=== PATIENT | female | born 1945 ===

== ENCOUNTER 2024-12-12 11:36 | Outpatient (AMB) | payer MEDICARE, SELFPAY ==
--- OUTSIDE RECORDS SUMMARY | 2009-04-04 01:00 | XMS_ITS | Encounter Summary ---
Author Organization [facility] Address [address] [place] [phone] Phone Care Team Providers Care Long Distance Billing Operator Name Role Phone Unavailable Primary Care Provider Unavailabl e Reason for Visit * MRI/CAT Scan - Closed Specialty Diagnoses / Procedures Referred By Contac t Referred To Contact Procedures MRI Spine (Bone) Outside (No Interpretation) System, Provider Not In, [facility] [address] [address] Referral ID Status Reason Start Date Expiration Date Visits Re quested Visits Authorized [id number] Closed 04/18/2017 04/18/2018 1 1 Encounter Details Date Type Department Care Team (Late st Contact Info) Description 04/04/2009 Hospital Encounter [facility],Outside Imaging [address] [place] [address] System, Provider Not In, [facility] [address] [address] Social History Tobacco Use Types Packs/Day Years [...] PM EDT documented as of this encounter Functional Status * Calculated C-SSRS Risk Score (Lifetime/Recent) Answer Date of Assessment Author No Risk Indicated 11/30/2024 3:47 PM EDT Marce Hall RN * [place] Suicide Severity Rating Scale (Screener/Recent Self-Report) Question Answer Date of Assessment Author 1. Wish to be (Past 1 Month) No 11/30/2024 3:47 PM EDT Marce Hall RN 2. Non-Specific Active Suicidal Thoughts (Past 1 Month) No 11/30/2024 3:47 PM EDT Marce Hall RN 6. Suicidal Behavior (Lifetime) No 11/30/2024 3:47 PM EDT Marce Hall RN documented as of this encounter Plan of Treatment Upcoming Encounters Date Type Department Care Team (Late st Contact Info) Description 12/26/2024 1:00 PM EDT Ancillary Procedure [facility] [address] [place] [address] 3rd Floor, [address] [place], [place] [phone] Yasmin Montague DNP [address] [facility], [address] [address] 01/21/2025 4:00 PM EST Office Visit [facility] Rheumatology [address] [place] [address] Jaylin Miller MD [address] [facility], [address] [place] [address] [email or web address] 03/29/2025 12:00 PM EST Office Visit [facility] Neurology [address] [place] [address] Tom Fernandez MD [address] [facility], 2nd [place] [address] 04/12/2025 6:00 PM EST Appointment [facility], Bone Density - [facility] [address] [place] [address] Lucia Fairchild MD [address] [facility], [address] [place] [address] 05/15/2025 2:20 PM EST Ancillary Procedure [facility] 22 [facility] 3rd Floor, [address] [place] [address] Amrit Jeffries MD [address] [place] [address] documented as of this encounter Procedures Procedure [...] It is not the complete legal health record.[facility]
--- OUTSIDE RECORDS SUMMARY | 2024-12-10 12:11 | XMS_ITS | Encounter Summary ---
Author Organization [facility] Address [address] [place] [phone] Phone Care Team Providers Care Mlt Name Role Phone Dawna Dominique MD Primary Care Provider Encounter Details Date Type Department Care Team (Latest Contact Info) Description 12/10/2024 12:11 PM EDT - 12/10/2024 11:59 PM EDT Hospital Encounter [facility] [address] [place] [address] Kit Mcknight MD [address] [place] [address], [place] [address] [email or web address] Discharge Disposition: Home or Self Care Social History Tobacco Use Types Packs/Day Years Used Date Smoking Tobacco: Former Cigarettes 1 26 1 962 - 1987 Smokeless Tobacco: Never Alcohol Use Standard Drinks/Week [...] 12/05/2024 Are you denied basic needs s [facility] as food, clothing, or medical care? No [...] PM EDT documented as of this encounter Medications at Time of Discharge allopurinol (ZYLOPRIM) 300 MG tabletIndications:H yperuricemia Take 1.5 tab daily 135 tablet 3 5 amitriptyline (ELAVIL) 10 MG tabletIndications:F ibromyalgia Take 2 tablets (20 mg total) by mouth nightly at bedtime as needed (Fibromyalgia). 180 tablet 1 5 BETA CAROTENE ORAL Take by mouth. biotin 300 mcg Tab Take 300 mcg by mouth daily. cholecalciferol, vitamin D3, 25 mcg (1,000 unit) capsule Take 1,000 Units by mouth daily. chromium picolinate 1,000 mcg Tab Take 200 mcg by mouth daily. coenzyme Q10 100 mg capsule Take 100 mg by mouth daily. colchicine (COLCRYS) 0.6 mg tablet Take 0.6 mg by mouth daily. cyanocobalamin, vitamin B-12, 1000 MCG tablet Take 1,000 mcg by mouth daily. cyclobenzaprine (FLEXERIL) 5 MG tabletIndications:C ervical radiculopathy TAKE ONE TABLET BY MOUTH EVERY DAY AT BEDTIME 90 tablet 1 5 ezetimibe (ZETIA) 10 mg tablet Take 10 mg by mouth daily. fluocinonide 0.05 % external solution APPLY ONCE DAILY TO SCALP AND BEHIND EARS FOR 2-3 WEEKS THEN TAPER TO LOWEST EFFECTIVE DOSE 3 folic acid (FOLVITE) 1 MG tablet Take 1 mg by mouth daily. FREESTYLE LITE METER meter kit USE DIRECTED TO TEST BLOOD SUGAR TWO TIMES A DAY 3 FREESTYLE LITE Strp strips USE TWO TIMES A DAY DIRECTED 3 gabapentin (NEURONTIN) 100 MG capsuleIndications: Essential tremor Take 1 capsule (100 mg total) by mouth 3 (three) times a day. 90 capsule 11 5 Lactobac 40-Bifido 3-S.thermop 100 billion cell Cap Take 1 capsule by mouth daily. lidocaine 5 %Indications:Diabet ic polyneuropathy associated with type [address] 1 patch onto the skin every 12 (twelve) hours as needed (Diabetic polyneuropathy associated with type 2 diabetes mellitus). 90 patch 3 5 lisinopril (PRINIVIL,ZESTRIL) 10 MG tablet Take 1 tablet by mouth daily. 9 metFORMIN (GLUCOPHAGE-XR) 500 MG 24 hr tablet Take 1,500 mg by mouth nightly at bedtime. 4 metoprolol succinate (TOPROL-XL) 50 MG 24 hr tabletIndications:P ersistent atrial fibrillation Take 1 tablet (50 mg total) by mouth daily. 90 tablet 3 5 NOVOFINE 32 32 gauge x 1/4 Ndle USE TO INJECT INSULIN FOUR TIMES A DAY 3 omega 4-cum-isb-fish oil 1,000 mg (120 mg-180 mg) Cap Take 1 capsule by mouth daily. omeprazole (PRILOSEC) 20 MG capsule Take 40 mg by mouth daily. oxyCODONE 5 MG immediate release tablet Take 5 mg by mouth 3 (three) times a day as needed. OZEMPIC 2 mg/dose (8 mg/3 mL) subcutaneous injection pen INJECT 2MGS SUBCUTANEOUSLY INTO SKIN ONCE A WEEK 5 psyllium (METAMUCIL) Powd Take by mouth. pyridoxine, vitamin B6, (B-6) 25 MG tablet Take 25 mg by mouth daily. rivaroxaban (XARELTO) 20 mg Tab Take 1 tablet (20 mg total) by mouth daily with dinner. 30 tablet 4 5 TURMERIC ORALIndications:wit h curcumin Take by mouth. Indications: with curcumin documented as of this encounter Plan of Treatment Upcoming Encounters Date Type Department Care Team (Late st Contact Info) Description 12/26/2024 1:00 PM EDT Ancillary Procedure [facility] [address] 3[address] Floor, [address] [place] [address] Yasmin Montague DNP 22 [facility], [address] [place] [address] 01/21/2025 4:00 PM EST Office Visit [facility] Rheumatology [address] [place] [address] Jaylin Miller MD [address] [place] [address], [address] [place] [address] [email or web address] 03/29/2025 12:00 PM EST Office Visit [facility] Neurology [address] [place] [address] Tom Fernandez MD 22 [facility], 2nd [place] [address] 04/12/2025 6:00 PM EST Appointment [facility], Bone [facility] [address] [place] [address] Lucia Fairchild MD [address] [place] [address], [address] [place] [address] 05/15/2025 2:20 PM EST Ancillary Procedure [facility] [address], [address] [place] [address] Amrit Jeffries MD [address] [place] [address] documented as of this encounter Procedures Procedure Name Priority Date/Time Associated Diagnosis Comments URINE CULTURE Routine 12/10/2024 12:13 PM EDT Personal history of urinary infection URINALYSIS WITH SEDIMENT Routine 12/10/2024 12:13 PM EDT Personal history of urinary infection documented in this encounter Results * (ABNORMAL) Urine Culture (12/10/2024 12:13 PM EDT) Special Requests None 12/10/2024 12:13 PM EDT [facility] Urine Culture >100,000 colony forming units per mL ESCHERICHIA COLI(A) 12/11/2024 1:10 PM EDT [facility] Urine (Urine) 12/10/2024 12: 13 PM EDT 12/10/2024 12:14 PM EDT Narrative Organism Antibiotic Method Susceptibility Escherichia coli Ampicillin REBECA METHOD 4: Susceptible Escherichia coli Ampicillin + Sulbactam REBECA METHOD <=2: Susceptible Escherichia coli Cefepime REBECA METHOD <=0.12: Susceptible Escherichia coli Ceftazidime REBECA METHOD <=0.5: Susceptible Escherichia coli Ceftriaxone REBECA METHOD <=0.25: Susceptible Escherichia coli Ciprofloxacin REBECA METHOD <=0.06: Susceptible Escherichia coli Extended Spectrum B-lactamase REBECA MET HOD Negative Escherichia coli Gentamicin REBECA METHOD <=1: Susceptible Escherichia coli Levofloxacin REBECA METHOD <=0.12: Susceptible Escherichia coli Nitrofurantoin REBECA METHOD <=16: Susceptible Escherichia coli Piperacillin-tazobactam REBECA METHOD <=4: Susceptible Escherichia coli Trimethoprim/sulfamethoxazole REBECA MET HOD <=20: Susceptible Escherichia coli Cefazolin(urine) REBECA METHOD <=1: Susceptible Comment: us Kit Mcknight MD MICROBIOLOGY - GENERAL ORDERABL ES Final Result [facility] [address] [place], [place] [id number] * (ABNORMAL) URINALYSIS WITH SEDIMENT (12/10/2024 12:13 PM EDT) WBC 21-49(A) NONE SEEN /hpf [facility] RBC 0-2(A) NONE SEEN /hpf [facility] URINE EPITHELIAL 5-10(A) NONE SEEN [facility] MUCUS Trace(A) NONE SEEN /hpf [facility] BACTERIA 3+(A) NONE SEEN /hpf [facility] COLOR Yellow Yellow [facility] CLARITY Clear [facility] GLUCOSE Negative Negative [facility] BILI Negative Negative [facility] KETONES Negative Negative [facility] SPECIFIC GRAVITY 1.025 1.005 - 1.030 [facility] BLOOD Negative Negative [facility] PH 6.0 5.0 - 8.0 [facility] Protein-UA Negative Negative [facility] NITRITE Positive(A) Negative [facility] Leukocyte esterase, ur 1+(A) Negative [facility] Urine (Urine) 12/10/2024 12: 13 PM EDT 12/10/2024 12:14 PM EDT us Kit Mcknight MD URINE ORDERABLES Final Result Performing Organization Address City/State/[facility] Co de Phone Number [facility] [address] [place] [address] documented in this encounter Visit Diagnoses Diagnosis Personal history of urinary infection documented in this encounter Care Teams Mlt Relationship Specialty Start Date End Date Dawna Dominique MD [address] [place] [phone] PCP - General Family Medicine 03/16/17 documented as of this encounter Additional Source Comments The information contained in this document represents components of the legal health record. It is not the complete legal health record.[facility]
--- NOTE | 2024-12-12 11:48 | HO.NEPHOV_ITS ---
Vital Signs 12/12/24 11:55 Height 5 ft 2 in Weight 219 lb 6 oz BMI 40.1 BP 130/70 Blood Pressure Location Rt brachial Position Sitting Pulse 91 Pulse Source Pulse Oximeter Pulse Oximetry (%) 96 Oxygen Delivery Method Room Air Intake Visit Reasons: ENP: Abnormal results of Kidney function Contract Serviceman Required: No Accompanied by: Spouse Allergies Sulfa (Sulfonamide Antibiotics) Allergy (Verified 12/12/24 11:54) Unknown HPI Comments Details: I had the privilege of seeing Fernanda in consultation for drop in GFR. She has DM and is closely followed up by her PCP and acid strength inspector. She has improvement in HbA1c. She has been having B/L flank pain without edema, hematur ia, fever, nausea or vomiting. Her baseline serum creatinine has been 0.5 which has gone up to 0.7. She denies SOB, PND, orthopnea or edema. She is on Ozempic. She denies taking diuretics, excess NSAID's but is on ACEI. [facility] Medical History (Updated 12/12/24 @ 12:15 by Matteo Ochoa MD) Elevated creatine kinase level Voice tremor Gastro-esophageal reflux disease without esophagitis Vasomotor rhinitis Headache Obstructive sleep apnea syndrome Simple obesity Nasal congestion Laryngopharyngeal reflux Edema of larynx Disorder of larynx Allergic rhinitis Chronic rhinitis Surgical History (Updated 12/12/24 @ 11:52 by Donna Metzger MA) History of hysterectomy History of bladder suspension procedure S/P tonsillectomy and adenoidectomy Hx of cholecystectomy History of lumpectomy Social History (Updated 12/12/24 @ 11:50 by Donna Metzger MA) Alcohol intake: never Patient Tobacco Use Status: Former Tobacco user Review of Systems Const All systems reviewed & are unremarkable except as noted in HPI and below Physical Exam Vital Signs: Last Vital Signs Pulse 91 12/12/24 11:55 BP 130/70 12/12/24 11:55 Pulse Ox 96 12/12/24 11:55 Oxygen Delivery Method Room Air 12/12/24 11:55 BMI result Body Mass Index 40.1 Const General: comfortable and no acute distress Orientation/consciousness: patient oriented x3 HEENT Head: Yes normocephalic Mouth: Normal oral and palatal mucosa present Eyes EOM: EOMs intact bilaterally Neck Neck: Yes supple Resp Auscultation: clear to auscultation bilaterally Cardio Jugular venous distension: no JVD Rate: regular rate GI Palpation (GI): Soft to palpation Auscultation: normal bowel sounds General: Yes no CVA tenderness Back/Spine/Pelvis Back: no CVA tenderness Skin General skin exam: no rashes or lesions noted Neuro General: patient oriented x3 and moves all extremities Extrem General: Yes no pedal edema Assessment & Plan Assessment & Plan (1) Decreased GFR: Code(s): R94.4 - Abnormal results of kidney function studies Category: Medical (2) Flank pain: Code(s): R10.9 - Unspecified abdominal pain Category: Medical Plan She is found to have mild rise in serum creatinine from 0.5 to 0.7 . She is diabetic and is on medications including Ozempic. She is taking ACEI. She should maintain good hydration and avoid NSAID's. I ordered repeat blood work and renal USS. If she has drop in GFR, I shall W/U more in detail. I did not make any medication changes today. Answered all questions and F/U was given. Orders: Orders Creatinine 3 Months R94.4 - Abnormal results of kidney function studies Electrolytes 3 Months R94.4 - Abnormal results of kidney function studies US renal BI 1 Week R10.9 - Unspecified abdominal pain, R94.4 - Abnormal results of kidney function studies UA and rflx microscopic 3 Months R94.4 - Abnormal results of kidney function studies Protein Creatinine Ratio, Ur 3 Months R94.4 - Abnormal results of kidney function studies Blood Urea Nitrogen 3 Months R94.4 - Abnormal results of kidney function studies Coding Level of Care Code New Pt Level 4 (64463) Diagnoses Decreased GFR R94.4 Flank pain R10.9
[2024-12-12 11:55] VITALS: BP 130/70; PULSE 91; O2SAT 96; BMI 40.1
--- OUTSIDE RECORDS SUMMARY | 2024-12-12 14:41 | XMS_ITS | Encounter Summary ---
Author Organization [facility] Address [address] [place] [address] Phone Care Team Providers Care Sorority Supervisor Name Role Phone Dawna Dominique MD Primary Care Provider Encounter Details Date Type Department Care Team (Latest Contact Info) Description 09/16/2022 Transcribe Orders Virtual Department [address] [place] [address] Carmen Pearson PA-C [address], [address] [place] [address] [email or web address] Elevated LFTs (Primary Dx); RUQ pain Social History Tobacco Use Types Packs/Day Years Used Date Smoking Tobacco: Former Smokeless Tobacco: Never Alcohol Use Standard Drinks/Week [...] with a working camera? Not on file Comments Unknown Sex and Gender Information Value Date Recorded Sex Assigned at Female 06/06/2020 5:50 PM EDT Legal Sex Female 6:56 PM EST Gender Identity Female 06/06/2020 5:50 PM EDT Sexual Orientation Straight 06/06/2020 5: 50 PM EDT documented as of this encounter Plan of Treatment Upcoming Encounters Date Type Department Care Team (Late st Contact Info) Description 12/26/2024 1:00 PM EDT Ancillary Procedure [facility] [address] 3rd [facility], [address] [place] [address] Yasmin Montague DNP 22 [facility], [address] [place] [address] 01/21/2025 4:00 PM EST Office Visit [facility] Rheumatology [address] [place] [address] Jaylin Miller MD [address] [place] [address], [address] [place] [address] [email or web address] 03/29/2025 12:00 PM EST Office Visit [facility] Neurology [address] [place] [address] Tom Fernandez MD [address] [facility], 2nd [place] [address] 04/12/2025 6:00 PM EST Appointment [facility], Bone Density - [facility] [address] [place] [address] Lucia Fairchild MD [address] [place] [address], [address] [place] [address] 05/15/2025 2:20 PM EST Ancillary Procedure [facility] 22 [facility] 3rd [facility], [address] [place] [address] Amrit Jeffries MD [address] [place] [address] [email or web address] documented as of this encounter Results * US ABDOMEN LIMITED RIGHT UPPER QUADRANT (10/07/2022 10:02 AM EDT) Anatomical Region Laterality Modality Abdomen Ultrasound 10/07/2022 8:18 PM EDT Impressions 10/07/2022 9:46 PM EDT The median shear wave speed is 1.06 m/s. This is less than or equal to 1.3 m/s, which corresponds with a high probability of being normal. Fatty liver. [employer] [facility] [employer]: In the setting of elevated liver function tests, nonfasting, vascular congestion, etc., the stage of liver fibrosis may be overestimated. In some patients with NAFLD, the cut-off values for compensated advanced chronic liver disease may be lower. In causes other than viral hepatitis and NAFLD, the cut-off values are not well established. Narrative 10/07/2022 9:46 PM EDT US ABDOMEN LIMITED RIGHT UPPER QUADRANT TECHNIQUE: Focused ultrasound evaluation of the liver. Volumetric sweeps were obtained and reviewed. FINDINGS: LIVER: Benign cysts measuring up to 15 mm. No suspicious focal lesions. ELASTOGRAPHY: 10 valid measurements were obtained. Median shear wave speed is: 1.06 m/s. IQR to median ratio: 12%. Gallbladder: No gallstones or gallbladder wall thickening. Biliary: No intrahepatic biliary ductal dilatation. The common bile duct measures 8 mm. Procedure Note William Winslow MD - 10/07/2022 US ABDOMEN LIMITED RIGHT UPPER QUADRANT TECHNIQUE: Focused ultrasound evaluation of the liver. Volumetric sweeps wereobtained and reviewed. FINDINGS: LIVER: Benign cysts measuring up to 15 mm. No suspicious focal lesions. ELASTOGRAPHY: 10 valid measurements were obtained. Median shear wavespeed is: 1.06 m/s. IQR to median ratio: 12%. Gallbladder: No gallstones or gallbladder wall thickening. Biliary: No intrahepatic biliary ductal dilatation. The common bile duct measures 8 mm. IMPRESSION: The median shear wave speed is 1.06 m/s. This is less than or equal to1.3 m/s, which corresponds with a high probability of being normal. Fatty liver. [employer] OF [employer]IOLOGISTS IN ULTRASOUND CONSENSUS: In the setting of elevated liver function tests, nonfasting, vascularcongestion, etc., the stage of liver fibrosis may be overestimated. Insome patients with NAFLD, the cut-off values for compensated advancedchronic liver disease may be lower. In causes other than viral hepatitisand NAFLD, the cut-off values are not well established. us Carmen Pearson PA-C IMG US ABDOMEN Final Result documented in this encounter Visit Diagnoses Diagnosis Elevated LFTs- Primary Other abnormal blood chemistry RUQ pain Abdominal pain, right upper quadrant Elevated LFTs Other abnormal blood chemistry RUQ pain Abdominal pain, right upper quadrant documented in this encounter Care Teams Sorority Supervisor Relationship Specialty Start Date End Date Dawna Dominique MD [address] [place] [address] PCP - General Family Medicine 03/16/17 documented as of this encounter Additional Source Comments The information contained in this document represents components of the legal health record. It is not the complete legal health record.[facility]
--- OUTSIDE RECORDS SUMMARY | 2024-12-12 14:41 | XMS_ITS | Encounter Summary ---
Author Organization [facility] Address [facility] [employer] [facility] [address] [place] [address] Phone Care Team Providers Care Biodiesel Plant Operations Engineer Name Role Phone Dawna Dominique MD Primary Care Provider Reason for Referral * MRI/CAT Scan - Closed Specialty Diagnoses / Procedures Referred By Catie arteaga Referred To Contact Radiology Diagnoses Abdominal pain, unspecified abdominal location Procedures CT Abdomen/Pelvis Dawna Dominique MD [address] [place] [address] Phone: tel: fax: Referral ID Status Reason Start Date Expiration Date Visits Re quested Visits Authorized [id number] Closed 07/02/2022 1 1 Encounter Details Date Type Department Care Team (Latest Contact Info) Description 07/02/2022 Transcribe Orders Virtual Department 30 [place] [address] Dawna Dominique MD [address] [place] [address] Abdominal pain, unspecified abdominal location (Primary Dx) Social History Tobacco Use Types Packs/Day Years Used Date Smoking Tobacco: Former Smokeless Tobacco: Never Alcohol Use Standard Drinks/Week Comments No 0 (1 standard drink = 0.6 oz pur e alcohol) Comments Unknown Sex and Gender Information Value [...] Description 12/26/2024 1:00 PM EDT Ancillary Procedure [facility] 22 [facility] 3rd Floor, [address] [place] [address] Yasmin Montague DNP 22 [facility], [address] [place] [address] 01/21/2025 4:00 PM EST Office Visit [facility] Rheumatology 22 [place] [address] Jaylin Miller MD 22 [facility], [address] [place] [address] [email or web address] 03/29/2025 12:00 PM EST Office Visit [facility] Neurology 22 [place] [address] Tom Fernandez MD [address] [place] [address], 2nd [place] [address] 04/12/2025 6:00 PM EST Appointment [facility], Bone Density - [facility] 30 [place] [address] Lucia Fairchild MD [address] [place] [address] [address] [place] [address] 05/15/2025 2:20 PM EST Ancillary Procedure [facility] [address] [place] [address] 3rd Floor, [address] [place] [address] Amrit Jeffries MD [address] [place] [address] documented as of this encounter Results * CT ABDOMEN/PELVIS WITH CONTRAST (07/22/2022 2:20 PM EDT) Anatomical Region Laterality Modality Abdomen, Pelvis Computed Tomogra phy 07/22/2022 10:2 5 PM EDT Impressions 07/23/2022 8:54 AM EDT No acute abnormality. Incidental findings as above. Nonspecific pleural thickening along the right lung base RECOMMENDATIONS: Chest CT Narrative 07/23/2022 8:[address] ABDOMEN/PELVIS WITH CONTRAST TECHNIQUE: Multidetector-row CT of the abdomen and pelvis was performed after administration of intravenous contrast using tailored dose modulation techniques. Images were reconstructed in the axial, coronal, and sagittal planes. COMPARISON: None FINDINGS: Lower Chest: Nonspecific pleural thickening along the right lung base (3:16) Liver: 1.2 cm cyst in the inferior aspect of the right liver. Biliary: Status post cholecystectomy. No biliary ductal dilatation. Spleen: Normal. No splenomegaly or focal lesions. Pancreas: Normal. No masses or ductal dilatation. Adrenal Glands: Normal. No nodules. Kidneys/Ureters: Bilateral renal cysts. No solid masses, stones, or hydronephrosis. Bowel: Appendix nonvisualized. No distention or wall thickening. Peritoneum/Retroperitoneum: No masses, pneumoperitoneum, or fluid. Lymph Nodes: Nonspecific bilateral prominent inguinal lymph nodes not meeting criteria for lymphadenopathy. Pelvic Organs/Bladder: Postsurgical changes surrounding the bladder. Vessels: Aorta vascular calcifications. No abdominal aortic aneurysm. Bones/Soft Tissues: No destructive osseous lesions. Procedure Note Bo Rashid MD, ABRAN - 07/23/2022 CT ABDOMEN/PELVIS WITH CONTRAST TECHNIQUE: Multidetector-row CT of the abdomen and pelvis was performedafter administration of intravenous contrast using tailored dosemodulation techniques. Images were reconstructed in the axial, coronal,and sagittal planes. COMPARISON: None FINDINGS: Lower Chest: Nonspecific pleural thickening along the right lung base (3:16) Liver: 1.2 cm cyst in the inferior aspect of the right liver. Biliary: Status post cholecystectomy. No biliary ductal dilatation. Spleen: Normal. No splenomegaly or focal lesions. Pancreas: Normal. No masses or ductal dilatation. Adrenal Glands: Normal. No nodules. Kidneys/Ureters: Bilateral renal cysts. No solid masses, stones, orhydronephrosis. Bowel: Appendix nonvisualized. No distention or wall thickening. Peritoneum/Retroperitoneum: No masses, pneumoperitoneum, or fluid. Lymph Nodes: Nonspecific bilateral prominent inguinal lymph nodes notmeeting criteria for lymphadenopathy. Pelvic Organs/Bladder: Postsurgical changes surrounding the bladder. Vessels: Aorta vascular calcifications. No abdominal aortic aneurysm. Bones/Soft Tissues: No destructive osseous lesions. IMPRESSION: No acute abnormality. Incidental findings as above. Nonspecific pleural thickening along the right lung base RECOMMENDATIONS: Chest CT Dawna Dominique MD IMG CT ABD/PELVIS Final Result documented in this encounter Visit Diagnoses Diagnosis Abdominal pain, unspecified abdominal location- Primary Abdominal pain, unspecified abdominal location documented in this encounter Care Teams Biodiesel Plant Operations Engineer Relationship Specialty Start Date End Date Dawna Dominiuqe MD [address] [place] [address] PCP - General Family Medicine 03/16/17 documented as of this encounter Additional Source Comments The information contained in this document represents components of the legal health record. It is not the complete legal health record.[facility]
--- OUTSIDE RECORDS SUMMARY | 2024-12-12 14:41 | XMS_ITS | Encounter Summary ---
Author Organization [facility] Address [address] [place] [address] Phone Care Team Providers Care Java J2Ee Lead Name Role Phone Dawna Dominqiue MD Primary Care Provider Encounter Details Date Type Department Care Team (Late st Contact Info) Description 02/09/2024 Transcribe Orders Virtual Department 30 [place] [address] Lucia Fairchild MD 33 [facility], [address] [place] [address] [email or web address] Disorder of bone (Primary Dx) Social History Tobacco Use Types [...] as food, clothing, or medical care? No 11/18/2022 In the past 12 months have y ou been in a relationship with a person who hurts, threatens, or tries to control you? No 11/18/2022 Are you denied basic needs s uch as food, clothing, or medical care? No 11/18/2022 In the past 12 months have y ou been in a relationship with a person who hurts, threatens, or tries to control you? No 11/18/2022 Comments No Sex and Gender Information Value [...] Description 12/26/2024 1:00 PM EDT Ancillary Procedure [facility] [address] [place] [address] 3rd Floor, [address] [place] [address] Yasmin Montague DNP [address] [place] [address], [address] [address] 01/21/2025 4:00 PM EST Office Visit [facility] Rheumatology [address] [place] [address] Jaylin Miller MD [address] [place] [address], [facility] [address] [place] [address] [email or web address] 03/29/2025 12:00 PM EST Office Visit [facility] Neurology [address] [place] [address] [place] [address] Tom Fernandez MD [address] [place] [address], 2nd [place] [address] 04/12/2025 6:00 PM EST Appointment [facility], Bone [facility] 30 [place] [address] Lucia Fairchild MD 33 [facility], [address] [place] [address] [email or web address] 05/15/2025 2:20 PM EST Ancillary Procedure [facility] 22 [facility] 3rd Floor, [address] [place] [address] Amrit Jeffries MD [address] [place] [address] [email or web address] Scheduled Orders Name Type Priority Associated Diagnoses Orde r Schedule DXA Screening Imaging Routine Disorder of bone Expected: 11/26/2024, Expires: 11/26/2025 documented as of this encounter Visit Diagnoses Diagnosis Disorder of bone- Primary documented in this encounter Care Teams Java J2Ee Lead Relationship Specialty Start Date End Date Dawna Dominique MD [address] [place] [address] PCP - General Family Medicine 03/16/17 documented as of this encounter Additional Source Comments The information contained in this document represents components of the legal health record. It is not the complete legal health record.[facility]
--- OUTSIDE RECORDS SUMMARY | 2024-12-12 14:41 | XMS_ITS | Encounter Summary ---
Author Organization [facility] Address [address] [place] [address] Phone Care Team Providers Care Web Site Specialist Name Role Phone Dawna Dominique MD Primary Care Provider Encounter Details Date Type Department Care Team (Late st Contact Info) Description 04/18/2017 Procedure Pass [facility],Outside Imaging [address] [place] [address] Social History Tobacco Use Types Packs/Day Years Used Date Smoking Tobacco: Former Cigarettes 1 26 1 962 - 1987 Smokeless Tobacco: Never Alcohol Use Standard Drinks/Week Comments No 0 (1 standard drink = 0.6 oz pur e alcohol) Comments No Sex and Gender Information Value [...] Description 12/26/2024 1:00 PM EDT Ancillary Procedure [facility] 22 [facility] 3rd Floor, [address] [place] [address] Yasmin Montague DNP 22 [facility], [address] [place] [address] 01/21/2025 4:00 PM EST Office Visit [facility] Rheumatology 22 [place] [address] Jaylin Miller MD 22 [facility], [address] [place] [address] [email or web address] 03/29/2025 12:00 PM EST Office Visit [facility] Neurology 22 [place] [address] Tom Fernandez MD 22 [facility], 2nd [place] [address] 04/12/2025 6:00 PM EST Appointment [facility], Bone Density - [facility] 30 [place] [address] Lucia Fairchild MD 33 [facility] [address] [place] [address] 05/15/2025 2:20 PM EST Ancillary Procedure [facility] 22 [facility] 3rd Floor, [address] [place] [address] Amrit Jeffries MD 50 [place] [address] documented as of this encounter Visit Diagnoses Not on filedocumented in this encounter Care Teams Web Site Specialist Relationship Specialty Start Date End Date Dawna Dominique MD [address] [place] [address] PCP - General Family Medicine 03/16/17 documented as of this encounter Additional Source Comments The information contained in this document represents components of the legal health record. It is not the complete legal health record.[facility]
--- OUTSIDE RECORDS SUMMARY | 2024-12-12 14:41 | XMS_ITS | Continuity of Care Document ---
Author Organization [facility] Address 33 [facility] [address] [place], [place] Phone [phone] Care Team Providers Care Academic Adviser Name Role Phone Dawna Dominique MD Care Team Information Barrel Cooper Unavailable LUCIA FAIRCHILD M.D. Care Team Information Rec eiver Unavailable Dawna Dominique MD Primary Care Physician Unavaila ble Problems Active Problems Provider Date Urine screening abnormal Lucia Fairchild M.D. Onset: 03/28/2024 Atrial fibrillation Lucia Fairchild M.D. Onse t: 03/28/2024 Abdominal pain Lucia Fairchild M.D. Onset: 0 08/19/2022 Alopecia Lucia Fairchild M.D. Onset: 1 03/27/2021 Liver function tests outside reference range Lucia Fairchild M.D. Onset: 12/29/2018 Non-toxic multinodular goiter Lucia Fairchild M.D. Onset: 09/26/2018 Disorder of bone Lucia Fairchild M.D. Onset: 09/26/2018 Uncontrolled type 2 diabetes mellitus Lucia Fairchild M.D. Onset: 09/26/2018 Social History Type Date Description Comments Sex Female Sex Unknown Allergies and adverse reactions Active Allergies Criticality Reaction Severity Comments Date Sulfamoxole Unable to assess criticality 09/26/2018 Jardiance Unable to assess criticality UTI, yeast 11/12/2021 Metformin Unable to assess criticality hand swelling 03/24/2022 Aspirin Unable to assess criticality 03/20/2024 Empagliflozin Unable to assess criticality 03/20/2024 Epinephrine Unable to assess criticality 03/20/2024 Hydrochlorothiazide Unable to assess criticality Swelling 03/20/2024 Lactose Unable to assess criticality 03/20/2024 Milnacipran Unable to assess criticality 03/20/2024 Procaine Unable to assess criticality Headaches 03/20/2024 Rosuvastatin Unable to assess criticality Headaches, Myalgia 03/20/2024 Medications Active Medications SIG Qnty Indications Order ing Provider Date Mqobpucgm75tx Tablets 1 tab by mouth rakan ry day 90tabs Lucia Fairchild M.D. 5 Ozempic (2 MG/Dose)8mg/3ML Solution Pen-Inject give 2mg subcutaneously in skin once a week 3ml Lucia Fairchild M.D. 5 Colchicine0.6mg Tablets 1 tab by mouth every day 90tabs Lucia Fairchild M.D. 4 Metformin HCL FI922lh Tablets ER 24HR Take 3 Tablets By Mouth Daily In The Evening 270tabs Lucia Fairchild M.D. 4 Fiasp Wmuaxqmid165Yvve/ML Solution Pen-Inject inject 2-10 unit subcutaneous four times a day as per ss 15ml Lucia Fairchild M.D. 4 Freestyle Samy 2/Waterflow/Flash Glucose Monitoring Mnfmnq6Mwgcet Device uad to monitor bs 4-6x a day 1units Lucia Fairchild M.D. 3 Freestyle Samy 2/Sensor/Flash Glucose Monitoring Crnzcu0Nhohfe Misc uad to monitor bs 4-6x a day 6units Lucia Fairchild M.D. 3 BD Pen Needle/Micro/Ultra-Fi ne/32G X 6mm32G X 6 mm Misc 1 four times a day 150units Zaynab Fairchild M.D. 3 Freestyle Lite TestStrips 1 strip to meter twice a day 200units Zaynab Fairchild M.D. 9 Freestyle Lite Blood Glucose Monitoring SystemDevice [facility] to test bs 2x a day 1units E11.65 Lucia Fairchild M.D. 9 Lfjdfjl23yr Tablets Take One Tablet By Mouth Every Day With Dinner Unknown 0 Sqrcctlzrk560uj Capsules Take One Capsule By Mouth Three Times A Day Tom Fernandez MD 0 Lidocaine5% Patches Place One Patch Onto The Skin Every 12 Hours as Needed Jaylin Miller MD 0 Metoprolol Succinate ER25mg Tablets ER 24HR Take One Tablet By Mouth Every Day Unknown 0 Curcumin/Tumeric Unknown 0 Metamucil FiberChewtabs 3 by mouth every day Unknown 0 Vit B6 1/d Unknown 0 Chromium Picolinate Unknown 0 Probiotics Unknown 0 Vit B12 1000 1/d Unknown 00 0 Folic Acid 400/d->qod Unknown 0 0 Biotin 5,000mcg Unknown 0 Vit D 2000iu/d Unknown 0 Cyclobenzaprine YUB74ws Tablets Take One Tablet By Mouth AT Bedtime Unknown 0 Fish Lfq1723ov Capsules 1 tab by mouth every day Unknown 0 Oxycodone HCL5mg Tablets Take 1-2 Tablets By Mouth Every 6 Hours as Needed For Pain Unknown 0 Jmlhssicbq87yl Tablets Take One Tablet By Mouth Every Day Unknown 0 Co Q 10 200 Unknown 0 0 History Medications Ozempic (1 MG/Dose)4mg/3ML Solution Pen-Inject Inject 1 MG Subcutaneously Once Weekly 9ml Lucia Fairchild M.D. 06/17/2023 - 06/13/2024 Ozempic (0.25 Or 0.5 MG/Dose)2mg/3ML Solution Pen-Inject 0.25 mg sub cutaneously every week a7earxa then 0.5/week as tolerated 3ml Lucia Fairchild M.D. 05/02/2023 - 06/17/2023 Pvxdkmj40ey/3ML Solution Pen-Inject inject 1.2 mg subcutaneous every day start @ 0.6mg 2ml E11Aleksandra Fairchild M.D. 08/19/2022 - 05/02/2023 Novolog Npbxlli392Ykfn/ML Solution Pen-Inject inject 2-10 unit subcutaneous four times a day as per ss 15ml Presley Fairchild M.D. 08/19/2022 - 04/27/2023 Trulicity0.75mg/0.5ML Solution Pen-Inject 0.75 mg subcutaneous every week 6ml Presley Fairchild M.D. 03/24/2022 - 08/19/2022 Rvlzzyxnxbl4xm Tablets Take 1 1/2 Tablets By Mouth Every Day AT Supper 180tabs Lucia Fairchild M.D. 03/24/2022 - 06/17/2023 Kukwaxq9gt Tablets 1 by mouth every day 30tabs Presley Fairchild M.D. 10/09/2020 - 11/12/2021 Pravastatin Diuqvx21xl Tablets 1 by mouth every day 90tabs Presley Fairchild M.D. 07/03/2020 - 03/24/2022 Nzerkpprh10hy Tablets 1 by mouth every day 90tabs Jamie Fairchild M.D. 07/02/2019 - 07/03/2020 Orhnefyveed8jl Tablets take 3 tablets by mouth dailyat 12noon 270tabs Lucia Fairchild M.D. 05/02/2019 - 03/24/2022 Ozempic (0.25 Or 0.5 MG/Dose)2mg/1.5ML Solution Pen-Inject 0.25 mg sub cutaneously every week a8ottaw then 0.5/week as tolerated 1.500ml Presley Fairchild M.D. 12/29/2018 - 07/02/2019 Metformin HCL NC717zx Tablets ER 24HR Take 2 Tablets By Mouth Daily In The Evening 270tabs Presley Fairchild M.D. 09/26/2018 - 03/24/2022 Metformin DNI098nm Tablets Take 2 Tablets By Mouth Twice Daily Unknown - 09/26/2018 Amitriptyline PPK67ys Tablets Take 1 Tablet By Mouth Nightly Along With Amitriptyline 25 MG Tablets Unknown - 03/24/2022 Amitriptyline JMM69bp Tablets Take Two Tablets By Mouth Twice A Day Unknown - 03/24/2022 Tmcxogrrjhk549mk Tablets Take 3 Tablet By Mouth Daily Unknown - 03/24/2022 Betamethasone Dipropionate0.05% Lotion Apply Once To Twice Daily To Affected Areas On Scalp as Needed . DO Not Use On Face Or Genitals Unknown - 03/24/2022 Alclometasone Dipropionate0.05% Cream Apply To Affected Area(S) Two Times A Day On Face And Around Ears For 1 To 2 Weeks as Needed Unknown - 03/24/2022 Beta Carotene Unknown - 03/24/2022 Vit B12/B6/Folate 1/d Unknown - 07/30/2021 Apple Cider Vinegar PlusTablets Unknown - 03/24/2022 Advocate Arm Blood Pressure Monitor/Extra LargeDevice uad 1units E11.65 Lucia Fairchild M.D. - 05/02/2023
--- OUTSIDE RECORDS SUMMARY | 2024-12-12 14:41 | XMS_ITS | Encounter Summary ---
Author Organization [facility] Address [address] [place] [address] Phone Care Team Providers Care Premium Cancellation Clerk Name Role Phone Dawna Dominique MD Primary Care Provider Encounter Details Date Type Department Care Team (Late st Contact Info) Description 12/10/2024 Transcribe Orders [facility] [address] [place] [address] Kit Mcknight MD [address] [place] [address], [address] [id number] [email or web address] Social History Tobacco Use Types Packs/Day Years [...] Description 12/26/2024 1:00 PM EDT Ancillary Procedure [facility] [address] [place] [address] 3rd Floor, [address] [place] [address] Yasmin Montague DNP [address] [place] [address], [address] [place] [address] 01/21/2025 4:00 PM EST Office Visit [facility] Rheumatology [address] [place] [address] Jaylin Miller MD [address] [place] [address], [address] [place] [address] [email or web address] 03/29/2025 12:00 PM EST Office Visit [facility] Neurology [address] [place] [address] Tom Fernandez MD [address] [place] [address], 2nd [place] [address] 04/12/2025 6:00 PM EST Appointment [facility], Bone Density - [facility] 30 [place] [address] Lucia Fairchild MD 33 [facility], [address] [place] [address] 05/15/2025 2:20 PM EST Ancillary Procedure [facility] 22 [facility] 3rd Floor, [address] [place] [address] Amrit Jeffries MD 50 [place] [address] documented as of this encounter Visit Diagnoses Not on filedocumented in this encounter Care Teams Premium Cancellation Clerk Relationship Specialty Start Date End Date Dawna Dominique MD [address] [place] [address] PCP - General Family Medicine 03/16/17 documented as of this encounter Additional Source Comments The information contained in this document represents components of the legal health record. It is not the complete legal health record.[facility]
--- OUTSIDE RECORDS SUMMARY | 2024-12-12 14:41 | XMS_ITS | Encounter Summary ---
Author Organization [facility] Address [address] [place] [address] Phone Care Team Providers Care Fare Enforcement Officer Name Role Phone Dawna Dominique MD Primary Care Provider Encounter Details Date Type Department Care Team (Late st Contact Info) Description 11/18/2022 Procedure Pass [facility] Endoscopy Admitting Dept Virtual Department 30 [place] [address] Social History Tobacco Use Types Packs/Day Years Used Date Smoking Tobacco: Former Cigarettes 1 15 04 962 - 1987 Smokeless Tobacco: Never Alcohol [...] Description 12/26/2024 1:00 PM EDT Ancillary Procedure [facility] [address] [place] [address] 3rd Floor, [address] [place] [address] Yasmin Montague DNP 22 [facility], [address] [place] [address] 01/21/2025 4:00 PM EST Office Visit [facility] Rheumatology 22 [place] [address] Jaylin Miller MD [address] [place] [address], [address] [place] [address] [email or web address] 03/29/2025 12:00 PM EST Office Visit [facility] Neurology 22 [place] [address] Tom Fernandez MD 22 [facility], 2nd [place] [address] 04/12/2025 6:00 PM EST Appointment [facility], Bone Density - [facility] 30 [place] [address] Lucia Fairchild MD 33 [facility], [address] [place] [address] 05/15/2025 2:20 PM EST Ancillary Procedure [facility] 3rd Floor, [address] [place] [address] Amrit Jeffries MD [address] [place] [address] documented as of this encounter Visit Diagnoses Not on filedocumented in this encounter Care Teams Fare Enforcement Officer Relationship Specialty Start Date End Date Dawna Dominique MD [address] [place] [address] PCP - General Family Medicine 03/16/17 documented as of this encounter Additional Source Comments The information contained in this document represents components of the legal health record. It is not the complete legal health record.[facility]
--- OUTSIDE RECORDS SUMMARY | 2024-12-12 14:41 | XMS_ITS | Encounter Summary ---
Author Organization [facility] Address [address] [place] [address] Phone Care Team Providers Care Draw Frame Operator Name Role Phone Dawna Dominique MD Primary Care Provider Encounter Details Date Type Department Care Team (Latest Contact Info) Description 12/10/2024 Transcribe Orders [facility] [address] [place] [address] Kit Mcknight MD [address] [place] [address], [address] [place], [place] [phone] [email or web address] Urinary tract infection without hematuria, site unspecified (Primary Dx); Urinary incontinence, unspecified type Social History Tobacco Use Types Packs/Day Years [...] Description 12/26/2024 1:00 PM EDT Ancillary Procedure [facility] [address] [place] [address] 3rd Floor, [address] [place] [address] Yasmin Montague DNP [address] [place] [address], [address] [place] [address] 01/21/2025 4:00 PM EST Office Visit [facility] Rheumatology [address] [place] [address] Jaylin Miller MD [address] [place] [address], [address] [place] [address] [email or web address] 03/29/2025 12:00 PM EST Office Visit [facility] Neurology [address] [place] [address] Tom eFrnandez MD [address] [place] [address], 2nd [place] [address] 04/12/2025 6:00 PM EST Appointment [facility], [address] [address] Lucia Fairchild MD 33 [facility], [address] [place] [address] [email or web address] 05/15/2025 2:20 PM EST Ancillary Procedure [facility] 3rd Floor, [address] [place] [address] Amrit Jeffries MD 50 [place] [address] [email or web address] documented as of this encounter Visit Diagnoses Diagnosis Urinary tract infection without hematuria, site unspecified- Primary Urinary incontinence, unspecified type documented in this encounter Care Teams Draw Frame Operator Relationship Specialty Start Date End Date Dawna Dominique MD [address] [place] [address] PCP - General Family Medicine 03/16/17 documented as of this encounter Additional Source Comments The information contained in this document represents components of the legal health record. It is not the complete legal health record.[facility]
--- OUTSIDE RECORDS SUMMARY | 2024-12-12 14:41 | XMS_ITS | Encounter Summary ---
Author Organization [facility] Address [address] [facility] [address] [place] [address] Phone Care Team Providers Care Horse Stud Worker Name Role Phone Dawna Dominique MD Primary Care Provider Encounter Details Date Type Department Care Team (Late Contact Info) Description 07/02/2022 Transcribe Orders [facility] Processing 30 [place] [address] Dawna Dominique MD [address] [place] [address] Social History Tobacco Use Types Packs/Day Years [...] Encounters Date Type Department Care Team (Late Contact Info) Description 12/26/2024 1:00 PM EDT Ancillary Procedure [facility] 22 [facility] 3rd Floor, [address] [place], [place] [phone] Yasmin Montague DNP 22 [facility], [address] [place] [address] 01/21/2025 4:00 PM EST Office Visit [facility] Rheumatology [address] [place] [address] Jaylin Miller MD 22 [facility], [address] [place] [address] [email or web address] 03/29/2025 12:00 PM EST Office Visit [facility] Neurology [address] [place] [address] Tom Fernandez MD 22 [facility], 2nd [place] [address] 04/12/2025 6:00 PM EST Appointment [facility], Bone [facility] 30 [place] [address] Lucia Fairchild MD 33 [facility], [address] [place] [address] 05/15/2025 2:20 PM EST Ancillary Procedure [facility] 22 [facility] 3rd Floor, [address] [place] [address] Amrit Jeffries MD [address] [place] [address] documented as of this encounter Visit Diagnoses Not on filedocumented in this encounter Care Teams Horse Stud Worker Relationship Specialty Start Date End Date Dawna Dominique MD [address] [place] [address] PCP - General Family Medicine 03/16/17 documented as of this encounter Additional Source Comments The information contained in this document represents components of the legal health record. It is not the complete legal health record.[facility]
--- OUTSIDE RECORDS SUMMARY | 2024-12-12 14:41 | XMS_ITS | Encounter Summary ---
Author Organization [facility] Address [email or web address] [place] [address] Phone Care Team Providers Care Copy Lathe Operator Name Role Phone Dawna Dominique MD Primary Care Provider Encounter Details Date Type Department Care Team (Latest Contact Info) Description 12/10/2024 Transcribe Orders [facility] [address] [place] [address] Kit Mcknight MD [address] [place] [address], [address] [place], [place] [phone] [email or web address] Personal history of urinary infection (Primary Dx) Social History Tobacco Use Types [...] Description 12/26/2024 1:00 PM EDT Ancillary Procedure [facility] [address] [place] [address] 3rd Floor, [address] [place] [address] Yasmin Montague DNP [address] [place] [address], [address] [address] 01/21/2025 4:00 PM EST Office Visit [facility] Rheumatology [address] [place] [address] Jaylin Miller MD [address] [place] [address], [address] [place] [address] [email or web address] 03/29/2025 12:00 PM EST Office Visit [facility] Neurology [address] [place] [address] [place] [address] Tom Fernandez MD [address] [place] [address], 2nd [place] [address] 04/12/2025 6:00 PM EST Appointment [facility], Bone [facility] 30 [place] [address] Lucia Fairchild MD 33 [facility], [address] [place] [address] 05/15/2025 2:20 PM EST Ancillary Procedure [facility] 3rd Floor, [address] [place] [address] Amrit Jeffries MD [address] [place] [address] documented as of this encounter Results * (ABNORMAL) Urine Culture (12/10/2024 12:13 PM EDT) Special Requests None 12/10/2024 12:13 PM EDT [facility] Urine Culture >100,000 colony forming units per mL ESCHERICHIA COLI(A) 12/11/2024 1:10 PM EDT [facility] Urine (Urine) 12/10/2024 12: 13 PM EDT [...] MICROBIOLOGY - GENERAL ORDERABL ES Final Result [facility] 30 [place] [address] * (ABNORMAL) URINALYSIS WITH SEDIMENT (12/10/2024 12:13 PM EDT) WBC 21-49(A) NONE SEEN /hpf [facility] RBC 0-2(A) NONE SEEN /hpf [facility] URINE EPITHELIAL 5-10(A) NONE SEEN [facility] MUCUS Trace(A) NONE SEEN /hpf [facility] BACTERIA 3+(A) NONE SEEN /hpf [facility] COLOR Yellow Yellow [facility] CLARITY Clear [facility] GLUCOSE Negative Negative [facility] BILI Negative Negative [facility] KETONES Negative Negative [facility] SPECIFIC GRAVITY 1.025 1.005 - 1.030 [facility] BLOOD Negative Negative [facility] PH 6.0 5.0 - 8.0 [facility] Protein-UA Negative Negative [facility] NITRITE Positive(A) Negative [facility] Leukocyte esterase, ur 1+(A) Negative [facility] Urine (Urine) 12/10/2024 12: 13 PM EDT 12/10/2024 12:14 PM EDT us Kit Mcknight MD URINE ORDERABLES Final Result Performing Organization Address City/State/[facility] Co de Phone Number [facility] 30 [place] [address] documented in this encounter Visit Diagnoses Diagnosis Personal history of urinary infection- Primary documented in this encounter Care Teams Copy Lathe Operator Relationship Specialty Start Date End Date Dawna Dominique MD [address] [place] [address] PCP - General Family Medicine 03/16/17 documented as of this encounter Additional Source Comments The information contained in this document represents components of the legal health record. It is not the complete legal health record.[facility]
--- OUTSIDE RECORDS SUMMARY | 2024-12-12 14:41 | XMS_ITS | Encounter Summary ---
Author Organization [facility] Address [address] [place] [address] Phone Care Team Providers Care Sterilization Technician Name Role Phone Dawna Dominique MD Primary Care Provider Encounter Details Date Type Department Care Team (Late st Contact Info) Description 07/02/2022 Procedure Pass [facility], Ct Scan - [address] [address] Social History Tobacco Use Types Packs/Day Years [...] Description 12/26/2024 1:00 PM EDT Ancillary Procedure [facility] 22 [facility] 3rd Floor, [address] [place] [address] Yasmin Montague DNP 22 [facility], [address] [place] [address] 01/21/2025 4:00 PM EST Office Visit [facility] Rheumatology 22 [place] [address] Jaylin Miller MD 22 [facility], [address] [place] [address] [email or web address] 03/29/2025 12:00 PM EST Office Visit [facility] Neurology 22 [place] [address] Tom Fernandez MD 22 [facility], 2nd [place] [address] 04/12/2025 6:00 PM EST Appointment [facility], Bone Density - [facility] 30 [place] [address] Lucia Fairchild MD 33 [facility], [address] [place] [address] 05/15/2025 2:20 PM EST Ancillary Procedure [facility] 22 [facility] 3rd Floor, [address] [place] [address] Amrit Jeffries MD [address] [place] [address] documented as of this encounter Visit Diagnoses Not on filedocumented in this encounter Care Teams Sterilization Technician Relationship Specialty Start Date End Date Dawna Dominique MD [address] [place] [address] PCP - General Family Medicine 03/16/17 documented as of this encounter Additional Source Comments The information contained in this document represents components of the legal health record. It is not the complete legal health record.[facility]
--- OUTSIDE RECORDS SUMMARY | 2024-12-12 14:41 | XMS_ITS | Encounter Summary ---
Author Organization [facility] Address [address] [place] [address] Phone Care Team Providers Care Furniture Assembler And Installer Name Role Phone Dawna Dominique MD Primary Care Provider Encounter Details Date Type Department Care Team (Late st Contact Info) Description 12/05/2024 Procedure Pass [facility] Endoscopy Admitting Dept Virtual Department 30 [place] [address] Social History Tobacco Use Types Packs/Day Years [...] Description 12/26/2024 1:00 PM EDT Ancillary Procedure [facility] [address] [place] [address] 3rd Floor, [address] [place] [address] Yasmin Montague DNP 22 [facility], [address] [place] [address] 01/21/2025 4:00 PM EST Office Visit [facility] Rheumatology 22 [place] [address] Jaylin Miller MD [address] [place] [address], [address] [place] [address] [email or web address] 03/29/2025 12:00 PM EST Office Visit [facility] Neurology [address] [place] [address] Tom Fernandez MD 22 [facility], 2nd [place] [address] 04/12/2025 6:00 PM EST Appointment [facility], Bone [facility] - [facility] [place] 30 [place] [address] Lucia Fairchild MD 33 [facility], [address] [place] [address] 05/15/2025 2:20 PM EST Ancillary Procedure [facility] 3rd Floor, [address] [place] [address] Amrit Jeffries MD [address] [place] [address] documented as of this encounter Visit Diagnoses Not on filedocumented in this encounter Care Teams Furniture Assembler And Installer Relationship Specialty Start Date End Date Dawna Dominique MD [address] [place] [address] PCP - General Family Medicine 03/16/17 documented as of this encounter Additional Source Comments The information contained in this document represents components of the legal health record. It is not the complete legal health record.[facility]
--- OUTSIDE RECORDS SUMMARY | 2024-12-12 14:42 | XMS_ITS | Encounter Summary ---
Author Organization [facility] Address [facility] [address] [place] [address] Phone Care Team Providers Care Manager Leadership Development Name Role Phone Dawna Dominique MD Primary Care Provider Reason for Referral * MRI/CAT Scan - Closed Specialty Diagnoses / Procedures Referred By Catie arteaga Referred To Contact Radiology Diagnoses Spinal stenosis of lumbar region, unspecified whether neurogenic claudication present Procedures MRI Lumbar Spine Adebayo Luis MD [address] [place] [phone] Phone: tel: fax: Referral ID Status Reason Start Date Expiration Date Visits Re quested Visits Authorized [id number] Closed 04/23/2024 04/23/2025 1 1 Encounter Details Date Type Department Care Team (Latest Contact Info) Description 04/23/2024 Transcribe Orders Virtual Department [address] [place] [address] Adebayo Luis MD [address] [place] [phone] Spinal stenosis of lumbar region, unspecified whether neurogenic claudication present (Primary Dx) Social History Tobacco Use Types [...] Description 12/26/2024 1:00 PM EDT Ancillary Procedure [facility] [address] [place] [address] 3rd Floor, [address] [place] [address] Yasmin Montague DNP 22 [facility], [address] [place] [address] 01/21/2025 4:00 PM EST Office Visit [facility] Rheumatology [address] [place] [address] Jaylin Miller MD 22 [facility], [address] [place] [address] [email or web address] 03/29/2025 12:00 PM EST Office Visit [facility] Neurology [address] [place] [address] Tom Fernandez MD 22 [facility], 2nd [place] [address] 04/12/2025 6:00 PM EST Appointment [facility], Bone [facility] [address] [place] [address] Lucia Fairchild MD 33 [facility], [address] [place] [address] 05/15/2025 2:20 PM EST Ancillary Procedure [facility] 22 [facility] 3rd Floor, [address] [place] [address] Amrit Jeffries MD [address] [place] [phone] documented as of this encounter Results * MRI LUMBAR SPINE (NEURO) WITHOUT CONTRAST (05/18/2024 12:50 PM EST) Anatomical Region Laterality Modality L-spine Magnetic Resonan ce 05/21/2024 4:36 PM EST Impressions 05/21/2024 4:43 PM EST 1. 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 Grade 1 spondylolisthesis at L3-4 appears similar to November 29, 2023 lumbar spine radiographs. Lumbar degenerative change with moderate neural foraminal narrowing at left L4-5. Narrative 05/21/2024 4:43 PM EST MRI LUMBAR SPINE (NEURO) WITHOUT CONTRAST Referring clinician's provided indication for this examination in Epic: Outside Radiology Order; Investigate spinal/ foraminal stenosis TECHNIQUE: MRI LUMBAR SPINE (NEURO) WITHOUT CONTRAST Multi-sequence, multi-planar MRI of the lumbar spine was performed without intravenous contrast. COMPARISON: Lumbar spine radiographs November 29, 2023 FINDINGS: LUMBAR SPINE: Lumbosacral Transitional Anatomy: Partial sacral type L5 vertebral body. Alignment and Vertebrae: There is grade 1 spondylolisthesis at L3-4 similar the prior. No lumbar compression fracture. Marrow: No bone marrow replacing lesion. Discs and Endplates: There is mild intervertebral disc at loss at L4-5. There is a rudimentary intervertebral disc at L5-S1. Conus: The conus terminates at the T12 level. The conus appears normal in signal intensity. Soft Tissues: Normal. No prevertebral edema. Other Findings: None. Findings by level: T12-L1: No spinal canal or neural foraminal narrowing. L1-L2: No spinal canal or neural foraminal narrowing. L2-L3: No spinal canal narrowing. There is mild bilateral neural foraminal narrowing due to facet arthropathy. L3-L4: There is grade 1 spondylolisthesis and facet arthropathy. No spinal canal or right neural foraminal narrowing. There is mild left neural foraminal narrowing. L4-L5: There is a disc bulge and facet arthropathy without spinal canal narrowing. There is mild right and moderate left neural foraminal narrowing. L5-S1: Rudimentary partial sacral type L5 vertebral body with rudimentary intervertebral disc. No spinal canal or neural foraminal narrowing. Procedure Note Sher Coleman DO - 05/21/2024 MRI LUMBAR SPINE (NEURO) WITHOUT CONTRAST Referring clinician's provided indication for this examination in Epic:Outside Radiology Order; Investigate spinal/ foraminal stenosis TECHNIQUE: MRI LUMBAR SPINE (NEURO) WITHOUT CONTRAST Multi-sequence, multi-planar MRI of the lumbar spine was performed withoutintravenous contrast. COMPARISON: Lumbar spine radiographs November 29, 2023 FINDINGS: LUMBAR SPINE: Lumbosacral Transitional Anatomy: Partial sacral type L5 vertebral body. Alignment and Vertebrae: There is grade 1 spondylolisthesis at L3-4similar the prior. No lumbar compression fracture. Marrow: No bone marrow replacing lesion. Discs and Endplates: There is mild intervertebral disc at loss at L4-5.There is a rudimentary intervertebral disc at L5-S1. Conus: The conus terminates at the T12 level. The conus appears normal insignal intensity. Soft Tissues: Normal. No prevertebral edema. Other Findings: None. Findings by level: T12-L1: No spinal canal or neural foraminal narrowing. L1-L2: No spinal canal or neural foraminal narrowing. L2-L3: No spinal canal narrowing. There is mild bilateral neural foraminalnarrowing due to facet arthropathy. L3-L4: There is grade 1 spondylolisthesis and facet arthropathy. No spinalcanal or right neural foraminal narrowing. There is mild left neuralforaminal narrowing. L4-L5: There is a disc bulge and facet arthropathy without spinal canalnarrowing. There is mild right and moderate left neural foraminalnarrowing. L5-S1: Rudimentary partial sacral type L5 vertebral body with rudimentaryintervertebral disc. No spinal canal or neural foraminal narrowing. IMPRESSION: 1. Transitional lumbosacral anatomy with partial sacral type L5 vertebralbody and rudimentary L5-S1 intervertebral disc. Grade 1 spondylolisthesisat L3-4 appears similar to November 29, 2023 lumbar spine radiographs.Lumbar degenerative change with moderate neural foraminal narrowing atleft L4-5. Adebayo Luis MD IMG MR XSPECIALTY Final Res ult documented in this encounter Visit Diagnoses Diagnosis Spinal stenosis of lumbar region, unspecified whether neurogenic claudication present- Primary Spinal stenosis of lumbar region, unspecified whether neurogenic claudication present documented in this encounter Care Teams Manager Leadership Development Relationship Specialty Start Date End Date Dawna Dominique MD [address] [place] [id number] PCP - General Family Medicine 03/16/17 documented as of this encounter Additional Source Comments The information contained in this document represents components of the legal health record. It is not the complete legal health record.[facility]
--- OUTSIDE RECORDS SUMMARY | 2024-12-12 14:42 | XMS_ITS | Encounter Summary ---
Author Organization [facility] Address [address] [place] [phone] Phone Care Team Providers Care Eligibility Consultant Name Role Phone Dawna Dominique MD Primary Care Provider Encounter Details Date Type Department Care Team (Latest Contact Info) Description 01/07/2023 Transcribe Orders Virtual Department 30 [place] [address] Carmen Pearson PA-C [address] [place] [address] [email or web address] Pain of right hip (Primary Dx) Social History Tobacco Use Types [...] Description 12/26/2024 1:00 PM EDT Ancillary Procedure [facility] [address] [place] [address] 3rd Floor, [address] [place] [address] Yasmin Montague DNP [address] [place] [address], [address] [address] 01/21/2025 4:00 PM EST Office Visit [facility] Rheumatology [address] [place] [address] Jaylin Miller MD [address] [place] [address], [facility] [address] [place] [address] [email or web address] 03/29/2025 12:00 PM EST Office Visit [facility] Neurology [address] [place] [address] [place] [address] Tom Fernandez MD [address] [place] [address], 2nd [place] [address] 04/12/2025 6:00 PM EST Appointment [facility], Bone [facility] 30 [place] [address] Lucia Fairchild MD 33 [facility], [address] [place] [address] [email or web address] 05/15/2025 2:20 PM EST Ancillary Procedure [facility] 22 [facility] 3rd Floor, [address] [place] [address] Amrit Jeffries MD [address] [place] [address] [email or web address] documented as of this encounter Results * XR HIP 2 VW RIGHT PLUS PELVIS (01/24/2023 11:55 AM EST) Anatomical Region Laterality Modality Hip Right Computed Radiogr aphy 01/24/2023 6:03 PM EST Impressions 01/24/2023 6:03 PM EST Unchanged mild right hip osteoarthritis compared to 2018. Narrative 01/24/2023 6:03 PM EST XR HIP 2 VW RIGHT PLUS PELVIS COMPARISON: XR HIP 2 VW RIGHT PLUS PELVIS FINDINGS: No fracture or dislocation. Mild osteoarthritis in the right hip, similar compared to 2018. Remaining pelvis is unchanged. Diffuse osseous demineralization. Sacrum is obscured. Procedure Note Dom Melendez MD - 01/24/2023 XR HIP 2 VW RIGHT PLUS PELVIS COMPARISON: XR HIP 2 VW RIGHT PLUS PELVIS FINDINGS: No fracture or dislocation. Mild osteoarthritis in the right hip, similarcompared to 2018. Remaining pelvis is unchanged. Diffuse osseousdemineralization. Sacrum is obscured. IMPRESSION: Unchanged mild right hip osteoarthritis compared to 2018. Carmen Pearson PA-C IMG XR PELVIS Final Result documented in this encounter Visit Diagnoses Diagnosis Pain of right hip- Primary Pain of right hip documented in this encounter Care Teams Eligibility Consultant Relationship Specialty Start Date End Date Dawna Dominique MD [address] [place] [phone] PCP - General Family Medicine 03/16/17 documented as of this encounter Additional Source Comments The information contained in this document represents components of the legal health record. It is not the complete legal health record.[facility]
--- OUTSIDE RECORDS SUMMARY | 2024-12-12 14:42 | XMS_ITS | Encounter Summary ---
Author Organization [facility] Address [address] [place] [address] Phone Care Team Providers Care Automatic Maintainer Name Role Phone Dawna Dominique MD Primary Care Provider Encounter Details Date Type Department Care Team (Late Contact Info) Description 09/27/2018 Transcribe Orders Virtual Department 30 [place] [address] Lucia Fairchild MD 33 [facility], [address] [place] [address] [email or web address] Nontoxic multinodular goiter (Primary Dx) Social History Tobacco Use Types Packs/Day Years Used Date Smoking Tobacco: Never Smokeless Tobacco: Never Alcohol Use Standard Drinks/Week [...] Description 12/26/2024 1:00 PM EDT Ancillary Procedure [facility] 22 [facility] 3rd Floor, [address] [place] [address] Yasmin Montague DNP 22 [facility], [address] [place] [address] 01/21/2025 4:00 PM EST Office Visit [facility] Rheumatology [address] [place] [address] Jaylin Miller MD 22 [facility], [address] [place] [address] [email or web address] 03/29/2025 12:00 PM EST Office Visit [facility] Neurology 22 [place] [address] Tom Fernandez MD 22 [facility], 2nd [place] [address] 04/12/2025 6:00 PM EST Appointment [facility], Bone [facility] 30 [place] [address] Lucia Fairchild MD 33 [facility] [address] [place] [address] 05/15/2025 2:20 PM EST Ancillary Procedure [facility] 22 [facility] 3rd Floor, [address] [place] [address] Amrit Jeffries MD [address] [place] [address] documented as of this encounter Visit Diagnoses Diagnosis Nontoxic multinodular goiter- Primary documented in this encounter Care Teams Automatic Maintainer Relationship Specialty Start Date End Date Dawna Dominique MD [address] [place] [phone] PCP - General Family Medicine 03/16/17 documented as of this encounter Additional Source Comments The information contained in this document represents components of the legal health record. It is not the complete legal health record.[facility]
--- OUTSIDE RECORDS SUMMARY | 2024-12-12 14:42 | XMS_ITS | Encounter Summary ---
Author Organization [facility] Address [address] [facility] [place] [facility] [address] [place] [address] Phone Care Team Providers Care Warehouse Sorter Name Role Phone Dawna Dominique MD Primary Care Provider Encounter Details Date Type Department Care Team (Latest Contact Info) Description 08/03/2017 Transcribe Orders [facility] [address] [facility] [place] [address] Dawna Dominique MD [address] [place] [address] Type 2 diabetes mellitus treated with insulin (Primary Dx) Social History Tobacco Use Types [...] Description 12/26/2024 1:00 PM EDT Ancillary Procedure [facility] 22 [facility] 3rd Floor, [address] [place] [address] Yasmin Montague DNP 22 [facility], [address] [place] [address] 01/21/2025 4:00 PM EST Office Visit [facility] Rheumatology [address] [place] [address] Jaylin Miller MD 22 [facility], [address] [place] [address] [email or web address] 03/29/2025 12:00 PM EST Office Visit [facility] Neurology [address] [place] [address] Tom Fernandez MD 22 [facility], 2nd [place] [address] 04/12/2025 6:00 PM EST Appointment [facility], [facility] [address] [place] [address] Lucia Fairchild MD 33 [facility], [address] [place] [address] 05/15/2025 2:20 PM EST Ancillary Procedure [facility] 22 [facility] 3rd Floor, [address] [place] [address] Amrit Jeffries MD [address] [place] [address] documented as of this encounter Results * Microalbumin/creatinine ratio, random urine (08/03/2017 8:57 AM EDT) URINE MICROALBUMIN 0.6 0 - 2.3 mg/dL [facility] URINE CREATININE 71 mg/dL [facility] MICROALB/CRE RATIO NOT CALCULATED 0 - 20 mg/g Cre [facility] Comment:due to Microalbumin <1.2 Urine (Urine) 08/03/2017 8:5 7 AM EDT 08/03/2017 9:04 AM EDT us Dawna Dominique MD URINE ORDERABLES Final Result Performing Organization Address City/[facility]/ZIP Co de Phone Number [address] [address] * TSH (08/03/2017 8:45 AM EDT) TSH 1.30 0.27 - 4.20 uIU/mL [facility] Blood 08/03/2017 8:45 AM EDT 08/03/2017 8:54 AM EDT us Dawna Dominique MD LAB BLOOD ORDERABLES Fi nal Result Performing Organization Address [facility] Co de Phone Number [address] [address] * (ABNORMAL) Lipid panel (08/03/2017 8:45 AM EDT) HDL 57 mg/dL [facility] Comment: Interpretation: Risk Level Females Decreased >55mg/dL Average 50-55 mg/dL Increased <50 mg/dL CHOLESTEROL 188 0 - 240 mg/dL [facility] TRIGLYCERIDES 190(H) 30 - 160 mg/dL [facility] LDL 93 50 - 129 mg/dL [facility] Comment: LDL levels in terms of risk for coronary heart disease: <100 mg/dL: Optimal 100-129 mg/dL: Near or above optimal 130-159 mg/dL: Borderline high 160-189 mg/dL: High >190 mg/dL: Very High CARDIAC RISK RATIO 3.3 3.3 - 4.4 [facility] Blood 08/03/2017 8:45 AM EDT 08/03/2017 8:54 AM EDT us Dawna Dominique MD LAB BLOOD ORDERABLES Fi nal Result Performing Organization Address City/[facility]/ZIP Co de Phone Number [address] [address] * (ABNORMAL) Comprehensive metabolic panel (08/03/2017 8:45 AM EDT) SODIUM 143 133 - 146 mmol/L [facility] POTASSIUM 4.3 3.3 - 5.1 mmol/L [facility] CHLORIDE 100 96 - 108 mmol/L [facility] CO2 27 21 - 35 mmol/L [facility] BUN 11 6 - 19 mg/dL [facility] CREATININE 0.60 0.5 - 1.5 mg/dL [facility] GLUCOSE 132(H) 70 - 99 mg/dL [facility] ALBUMIN 4.1 3.9 - 4.8 g/dL [facility] TOTAL PROTEIN 7.4 6.5 - 8.0 g/dL [facility] CALCIUM 9.5 8.4 - 10.3 mg/dL [facility] ALKALINE PHOSPHATASE 92 39 - 117 U/L [facility] TOTAL BILIRUBIN 0.4 0.0 - 1.2 mg/dL [facility] AST 24 0 - 37 U/L [facility] ALT 30 0 - 40 U/L [facility] GLOBULIN 3.3 1 - 4.8 g/dL [facility] EGFR 92 >59 mL/min/1.7 3m2 [facility] Comment:If patient is black, multiply result by 1.159. The eGFR calculation has changed from the MDRD equation to the CKD-EPI equation as of May 24, 2017. ANION GAP 20 10 - 20 mmol/L [facility] Blood 08/03/2017 8:45 AM EDT 08/03/2017 8:54 AM EDT us Dawna Dominique MD LAB BLOOD ORDERABLES Fi nal Result [address] [address] * (ABNORMAL) Uric acid (08/03/2017 8:45 AM EDT) URIC ACID 8.6(H) 2.4 - 7.0 mg/dL [facility] Blood 08/03/2017 8:45 AM EDT 08/03/2017 8:54 AM EDT Dawna Dominique MD LAB BLOOD ORDERABLES Fi nal Result Performing Organization Address City/[facility]/ZIP Co de Phone Number [address] [address] * (ABNORMAL) Hemoglobin A1c (08/03/2017 8:45 AM EDT) HEMOGLOBIN A1C 6.6(H) 4.3 - 5.8 % [facility] Blood 08/03/2017 8:45 AM EDT 08/03/2017 8:54 AM EDT Dawna Dominique MD LAB BLOOD ORDERABLES Fi nal Result Performing Organization Address [facility] Co de Phone Number [address] [address] documented in this encounter Visit Diagnoses Diagnosis Type 2 diabetes mellitus treated with insulin- Primary documented in this encounter Care Teams Warehouse Sorter Relationship Specialty Start Date End Date Dawna Dominique MD [address] [place] [address] PCP - General Family Medicine 03/16/17 documented as of this encounter Additional Source Comments The information contained in this document represents components of the legal health record. It is not the complete legal health record.[facility]
--- OUTSIDE RECORDS SUMMARY | 2024-12-12 14:42 | XMS_ITS | Encounter Summary ---
Author Organization [facility] Address [address] [place] [address] Phone Care Team Providers Care Websphere Developer Name Role Phone Dawna Dominique MD Primary Care Provider Encounter Details Date Type Department Care Team (Late Contact Info) Description 09/11/2020 Transcribe Orders Virtual Department 30 [place] [address] Lucia Fairchild MD 33 [facility], [address] [place] [address] [email or web address] Thyroid nodule (Primary Dx) Social History Tobacco Use Types [...] Description 12/26/2024 1:00 PM EDT Ancillary Procedure [facility] 22 [facility] 3rd Floor, [address] [place] [address] Yasmin Montague DNP 22 [facility], [address] [place] [address] 01/21/2025 4:00 PM EST Office Visit [facility] Rheumatology [address] [place] [address] Jaylin Miller MD 22 [facility], [address] [place] [address] [email or web address] 03/29/2025 12:00 PM EST Office Visit [facility] Neurology [address] [place] [address] Tom Fernandez MD 22 [facility], 2nd [place] [address] 04/12/2025 6:00 PM EST Appointment [facility] 30 [place] [address] Lucia Fairchild MD [address] [address], [address] [place] [address] 05/15/2025 2:20 PM EST Ancillary Procedure [facility] 22 [facility] 3rd Floor, [address] [place] [address] Amrit Jeffries MD [address] [place] [address] documented as of this encounter Results * US Thyroid Gland (09/15/2020 1:59 PM EDT) Anatomical Region Laterality Modality Neck, Head, Chest Ultrasound 09/15/2020 5:29 PM EDT Impressions 09/15/2020 5:38 PM EDT Unchanged dominant cystic thyroid nodules with benign appearing calcifications. No suspicious thyroid nodules. Narrative 09/15/2020 5:38 PM EDT US THYROID GLAND TECHNIQUE: Ultrasound of the thyroid. COMPARISON: US THYROID GLAND FINDINGS: Technically difficult examination due to Right thyroid: The right lobe measures 41 mm in sagittal dimension. Nodule 1: A cystic nodule in the lower pole, measuring 12 x 11 x 12 mm, with smooth margins and macrocalcifications with shadowing. This is decreased from up to 17 mm previously. TI-RADS 1, not suspicious. Nodule 2: A spongiform nodule in the lower pole, measuring 12 x 8 x 10 mm, consistent with a colloid cysts. Smaller anechoic nodules in the lower pole are also likely cysts. No right lymphadenopathy. Left thyroid: The left lobe measures 42 mm in sagittal dimension. Nodule 1: A cystic nodule in the lower pole, measuring 16 x 12 x 12 mm, with smooth margins and large echogenic foci with comet tail artifact. This previously measured up to 13 mm but is not suspicious, TI-RADS 1. Other smaller simple and colloid cysts are also not suspicious. No left lymphadenopathy. Isthmus: The isthmus measures 3 mm in axial depth. Procedure Note Korey Menendez MD, PhD - 09/15/2020 US THYROID GLAND TECHNIQUE: Ultrasound of the thyroid. COMPARISON: US THYROID GLAND FINDINGS: Technically difficult examination due to Right thyroid: The right lobe measures 41 mm in sagittal dimension. Nodule 1: A cystic nodule in the lower pole, measuring 12 x 11 x 12 mm,with smooth margins and macrocalcifications with shadowing. This isdecreased from up to 17 mm previously. TI-RADS 1, not suspicious. Nodule 2: A spongiform nodule in the lower pole, measuring 12 x 8 x 10 mm,consistent with a colloid cysts. Smaller anechoic nodules in the lower pole are also likely cysts. No right lymphadenopathy. Left thyroid: The left lobe measures 42 mm in sagittal dimension. Nodule 1: A cystic nodule in the lower pole, measuring 16 x 12 x 12 mm,with smooth margins and large echogenic foci with comet tail artifact.This previously measured up to 13 mm but is not suspicious, TI-RADS 1. Other smaller simple and colloid cysts are also not suspicious. No left lymphadenopathy. Isthmus: The isthmus measures 3 mm in axial depth. IMPRESSION: Unchanged dominant cystic thyroid nodules with benign appearingcalcifications. No suspicious thyroid nodules. Lucia Fairchild MD IMG US THYROID Final Result documented in this encounter Visit Diagnoses Diagnosis Thyroid nodule- Primary Nontoxic uninodular goiter Thyroid nodule Nontoxic uninodular goiter documented in this encounter Care Teams Websphere Developer Relationship Specialty Start Date End Date Dawna Dominique MD [address] [place] [phone] PCP - General Family Medicine 03/16/17 documented as of this encounter Additional Source Comments The information contained in this document represents components of the legal health record. It is not the complete legal health record.[facility]
--- OUTSIDE RECORDS SUMMARY | 2024-12-12 14:42 | XMS_ITS | Encounter Summary ---
Author Organization [facility] Address [address] [facility] [address] [place] [address] Phone Care Team Providers Care Director Emergency Department Name Role Phone Dawna Dominique MD Primary Care Provider Encounter Details Date Type Department Care Team (Late st Contact Info) Description 08/25/2021 Procedure Pass Echo Lab [address] [place] [address] Social History Tobacco Use Types Packs/Day Years [...] Description 12/26/2024 1:00 PM EDT Ancillary Procedure [facility] [address] [place] [address] 3rd Floor, [address] [place], [place] [id number] Yasmin Montague DNP 22 [facility], [address] [address] 01/21/2025 4:00 PM EST Office Visit [facility] Rheumatology [address] [place] [address] Jaylin Miller MD 22 [facility], [address] [place] [address] [email or web address] 03/29/2025 12:00 PM EST Office Visit [facility] Neurology [address] [place] [address] Tom Fernandez MD 22 [facility], 2nd [place] [address] 04/12/2025 6:00 PM EST Appointment [facility], Bone Density - [facility] [address] [place] [address] Lucia Fairchild MD 33 [facility], [address] [place] [address] 05/15/2025 2:20 PM EST Ancillary Procedure [facility] [address] [facility] 3rd Floor, [address] [place] [address] Amrit Jeffries MD 50 [place] [address] documented as of this encounter Visit Diagnoses Not on filedocumented in this encounter Care Teams Director Emergency Department Relationship Specialty Start Date End Date Dawna Dominique MD [address] [place] [phone] PCP - General Family Medicine 03/16/17 documented as of this encounter Additional Source Comments The information contained in this document represents components of the legal health record. It is not the complete legal health record.[facility]
--- OUTSIDE RECORDS SUMMARY | 2024-12-12 14:42 | XMS_ITS | Encounter Summary ---
Author Organization [facility] Address [address] [facility] [address] [place] [address] Phone Care Team Providers Care Tag Marker Name Role Phone Dawna Dominique MD Primary Care Provider Encounter Details Date Type Department Care Team (Late Contact Info) Description 09/29/2018 Ancillary Orders Virtual Department [address] [place] [address] Lucia Fairchild MD 33 [facility], [address] [place] [address] [email or web address] Multinodular goiter Social History Tobacco Use Types Packs/Day Years [...] Description 12/26/2024 1:00 PM EDT Ancillary Procedure [facility] [address] [facility] 3rd Floor, [address] [place] [address] Yasmin Montague DNP 22 [facility], [address] [place] [address] 01/21/2025 4:00 PM EST Office Visit [facility] Rheumatology [address] [place] [address] Jaylin Miller MD 22 [facility], [address] [place] [address] [email or web address] 03/29/2025 12:00 PM EST Office Visit [facility] Neurology [address] [place] [address] Tom Fernandez MD [address] [place] [address], 2nd [place] [address] 04/12/2025 6:00 PM EST Appointment [facility], [facility] [address] [place] [address] Lucia Fairchild MD 33 [facility], [address] [place] [address] 05/15/2025 2:20 PM EST Ancillary Procedure [facility] 22 [facility] 3rd Floor, [address] [place] [address] Amrit Jeffries MD [address] [place] [id number] documented as of this encounter Results * US Thyroid Gland (09/29/2018 3:01 PM EDT) Anatomical Region Laterality Modality Neck, Head, Chest Ultrasound 09/29/2018 3:12 PM EDT Impressions 09/29/2018 5:25 PM EDT No worrisome change and multiple thyroid nodules. One of the nodules previously indicated as mid is indicated as more inferior today but appears to be the same nodule. No clearly suspicious change since prior study of 2014. POS - [id number] Edited by: Sonia Florence on 09/29/2018 3:36 PM Narrative 09/29/2018 5:25 PM EDT Ultrasonic examination of the thyroid is performed multiple static images obtained. Multiple prior, most recent 03/06/2015. Right thyroid lobe is measured at 4.5 x 1.7 x 1.3 cm and left 5.0 x 2.3 x 1.4 cm. Two nodules are measured on the right and three on the left. The largest on the right is in the lower pole measuring 1.7 x 1.5 x 1.0 cm. This is minimally increased since the prior. It has some echogenic foci within which appear to have some ring-down and suggest colloid. The stability over the interval more than 3 years is reassuring. In the upper pole is a bilobed purely hypoechoic nodule measuring 6 x 5 x 10 mm. No clearly worrisome features. On the left and lower poles and ill-defined wider than tall nodule with a central echogenic area which shadows slightly and is probably calcification. This is the same nodule previously described as midpole and does not appear substantially changed in size or character. Several other smaller nodules are noted, none with clearly suspicious features and none measuring over 1.1 cm. No adenopathy is seen while scanning regionally. Isthmus measured at approximately 3 mm in thickness. Procedure Note Sarkis Lira MD - 09/29/2018 Ultrasonic examination of the thyroid is performed multiple static imagesobtained. Multiple prior, most recent 03/06/2015. Right thyroid lobe is measured at 4.5 x 1.7 x 1.3 cm and left 5.0 x 2.3 x1.4 cm. Two nodules are measured on the right and three on the left. Thelargest on the right is in the lower pole measuring 1.7 x 1.5 x 1.0 cm.This is minimally increased since the prior. It has some echogenic fociwithin which appear to have some ring-down and suggest colloid. Thestability over the interval more than 3 years is reassuring. In the upperpole is a bilobed purely hypoechoic nodule measuring 6 x 5 x 10 mm. Noclearly worrisome features. On the left and lower poles and ill-defined wider than tall nodule with acentral echogenic area which shadows slightly and is probablycalcification. This is the same nodule previously described as midpole anddoes not appear substantially changed in size or character. Several othersmaller nodules are noted, none with clearly suspicious features and nonemeasuring over 1.1 cm. No adenopathy is seen while scanning regionally.Isthmus measured at approximately 3 mm in thickness. IMPRESSION: No worrisome change and multiple thyroid nodules. One of the nodulespreviously indicated as mid is indicated as more inferior today butappears to be the same nodule. No clearly suspicious change since priorstudy of 2014. POS - [id number] Edited by: Sonia Florence on 09/29/2018 3:36 PM Lucia Fairchild MD IMG US THYROID Final Result documented in this encounter Visit Diagnoses Diagnosis Multinodular goiter Nontoxic multinodular goiter Multinodular goiter Nontoxic multinodular goiter documented in this encounter Care Teams Tag Marker Relationship Specialty Start Date End Date Dawna Dominique MD [address] [place] [id number] PCP - General Family Medicine 03/16/17 documented as of this encounter Additional Source Comments The information contained in this document represents components of the legal health record. It is not the complete legal health record.[facility]
--- OUTSIDE RECORDS SUMMARY | 2024-12-12 14:42 | XMS_ITS | Encounter Summary ---
Author Organization [facility] Address [address] [facility] [address] [place] [address] Phone Care Team Providers Care Truckman Name Role Phone Dawna Dominique MD Primary Care Provider Encounter Details Date Type Department Care Team (Late Contact Info) Description 09/27/2018 Ancillary Orders Virtual Department [address] [place] [address] Lucia Fairchild MD [address] [facility] [address] [place] [address] [email or web address] Post-menopausal Social History Tobacco Use Types Packs/Day Years [...] Description 12/26/2024 1:00 PM EDT Ancillary Procedure [facility] [address] [facility] 3rd Floor, [address] [place] [address] Yasmin Montague DNP 22 [facility], [address] [place] [address] 01/21/2025 4:00 PM EST Office Visit [facility] Rheumatology [address] [place] [address] Jaylin Miller MD [address] [facility], [address] [place] [address] [email or web address] 03/29/2025 12:00 PM EST Office Visit [facility] Neurology [address] [place] [address] Tom Fernandez MD 22 [facility], 2nd [place] [address] 04/12/2025 6:00 PM EST Appointment [facility], Bone Density - [facility] [address] [place] [address] Lucia Fairchild MD [address] [place] [address] [address] [place] [address] 05/15/2025 2:20 PM EST Ancillary Procedure [facility] [address] [facility] 3rd Floor, [address] [place] [address] Amrit Jeffries MD [address] [place] [address] documented as of this encounter Results * BD DXA AXIAL (SPINE) WITH HIP (12/01/2018 3:00 PM EDT) Anatomical Region Laterality Modality Bone Density Bone Density 12/01/2018 3:21 PM EDT Impressions 12/01/2018 3:22 PM EDT Normal bone mineral density at all 3 sites assessed. S/S: Post-menopausal estrogen deficiency, bone density screening POS - [id number] Narrative 12/01/2018 3:22 PM EDT This is a this is a 73-year-old postmenopausal patient. Evaluation of the lumbar spine and both hips is obtained and appears appropriate. The lumbar spine from L1 through L4 discloses a total bone mineral density of 0.966 g/cm2 with a T-score of 0.7. This is in the normal range. The right hip has a total bone mineral density of 1.006 g/cm2 with a T-score of 0.5 this is in the normal range. The left hip has a total bone mineral density of 1.030 g/cm2 for a T-score of 0.7. This is in the normal range. Procedure Note Chavez Pinzon MD - 12/01/2018 This is a this is a 73-year-old postmenopausal patient. Evaluation of the lumbar spine and both hips is obtained and appearsappropriate. The lumbar spine from L1 through L4 discloses a total bone mineral densityof 0.966 g/cm2 with a T-score of 0.7. This is in the normal range. The right hip has a total bone mineral density of 1.006 g/cm2 with aT-score of 0.5 this is in the normal range. The left hip has a total bone mineral density of 1.030 g/cm2 for a T-scoreof 0.7. This is in the normal range. IMPRESSION: Normal bone mineral density at all 3 sites assessed. S/S: Post-menopausal estrogen deficiency, bone density screening POS - [id number] Lucia Fairchild MD IMG BD BONE DENSITY DEXA Fin al Result documented in this encounter Visit Diagnoses Diagnosis Post-menopausal Asymptomatic postmenopausal status (age-related) (natural) Post-menopausal Asymptomatic postmenopausal status (age-related) (natural) documented in this encounter Care Teams Truckman Relationship Specialty Start Date End Date Dawna Dominique MD [address] [place] [id number] PCP - General Family Medicine 03/16/17 documented as of this encounter Additional Source Comments The information contained in this document represents components of the legal health record. It is not the complete legal health record.[facility]
--- OUTSIDE RECORDS SUMMARY | 2024-12-12 14:42 | XMS_ITS | Clinical Summary ---
Author Organization [facility] Address [address] [place] [id number] Phone Care Team Providers Care [employer] Professor Name Role Phone Dawna Dominique MD Primary Care Provider Allergies Active Allergy Reactions Criticality Noted Date Comments Aspirin 11/19/2021 Epinephrine 11/19/2021 Hydrochlorothiazide Swelling 11/19/2021 Empagliflozin 07/23/2022 UTI Milnacipran 11/19/2021 Procaine Headaches 11/19/2021 Rosuvastatin GI Upset 07/23/2022 Sulfa (Sulfonamide Antibiotics) Unknown 02/19 Medications biotin 300 mcg Tab Take 300 mcg by mouth daily. Active oxyCODONE 5 MG immediate release tablet Take 5 mg by mouth 3 (three) times a day as needed. Active cyanocobalamin, vitamin B-12, 1000 MCG tablet Take 1,000 mcg by mouth daily. Active cholecalciferol, vitamin D3, 25 mcg (1,000 unit) capsule Take 1,000 Units by mouth daily. Active Lactobac 40-Bifido 3-S.thermop 100 billion cell Cap Take 1 capsule by mouth daily. Active coenzyme Q10 100 mg capsule Take 100 mg by mouth daily. Active folic acid (FOLVITE) 1 MG tablet Take 1 mg by mouth daily. Active lisinopril (PRINIVIL,ZESTRIL ) 10 MG tablet Take 1 tablet by mouth daily. 03/24/19 19 Active omega 6-exa-oid-fish oil 1,000 mg (120 mg-180 mg) Cap Take 1 capsule by mouth daily. Active pyridoxine, vitamin B6, (B-6) 25 MG tablet Take 25 mg by mouth daily. Active chromium picolinate 1,000 mcg Tab Take 200 mcg by mouth daily. Active fluocinonide 0.05 % external solution APPLY ONCE DAILY TO SCALP AND BEHIND EARS FOR 2-3 WEEKS THEN TAPER TO LOWEST EFFECTIVE DOSE 07/03/19 Active FREESTYLE LITE METER meter kit USE DIRECTED TO TEST BLOOD SUGAR TWO TIMES A DAY 09/12/19 Active FREESTYLE LITE Strp strips USE TWO TIMES A DAY DIRECTED 09/10/19 Active NOVOFINE 32 32 gauge x 1/4 Ndle USE TO INJECT INSULIN FOUR TIMES A DAY 08/21/19 Active TURMERIC ORALIndications:w ith curcumin Take by mouth. Indications: with curcumin Active metFORMIN (GLUCOPHAGE-XR) 500 MG 24 hr tablet Take 1,500 mg by mouth nightly at bedtime. 05/03/19 24 Active gabapentin (NEURONTIN) 100 MG capsuleIndication s:Essential tremor Take 1 capsule (100 mg total) by mouth 3 (three) times a day. 90 capsule 11 05/22/19 25 Active ezetimibe (ZETIA) 10 mg tablet Take 10 mg by mouth daily. Active lidocaine 5 %Indications:Diab etic polyneuropathy associated with type [address] 1 patch onto the skin every 12 (twelve) hours as needed (Diabetic polyneuropathy associated with type 2 diabetes mellitus). 90 patch 3 08/24/19 25 Active amitriptyline (ELAVIL) 10 MG tabletIndications :Fibromyalgia Take 2 tablets (20 mg total) by mouth nightly at bedtime as needed (Fibromyalgia). 180 tablet 1 08/24/19 25 Active OZEMPIC 2 mg/dose (8 mg/3 mL) subcutaneous injection pen INJECT 2MGS SUBCUTANEOUSLY INTO SKIN ONCE A WEEK 08/24/19 25 Active fluticasone propionate (FLONASE) 50 mcg/actuation nasal sprayIndications: Acute viral pharyngitis,Viral URI with cough 1-2 sprays by Nasal route daily for 14 days. 9.9 mL 09/11/19 25 Active allopurinol (ZYLOPRIM) 300 MG tabletIndications :Hyperuricemia Take 1.5 tab daily 135 tablet 3 09/20/19 25 Active cyclobenzaprine (FLEXERIL) 5 MG tabletIndications :Cervical radiculopathy TAKE ONE TABLET BY MOUTH EVERY DAY AT BEDTIME 90 tablet 1 09/20/19 25 Active metoprolol succinate (TOPROL-XL) 50 MG 24 hr tabletIndications :Persistent atrial fibrillation Take 1 tablet (50 mg total) by mouth daily. 90 tablet 3 09/25/19 25 Active rivaroxaban (XARELTO) 20 mg Tab Take 1 tablet (20 mg total) by mouth daily with dinner. 30 tablet 4 10/03/19 25 Active colchicine (COLCRYS) 0.6 mg tablet Take 0.6 mg by mouth daily. Active omeprazole (PRILOSEC) 20 MG capsule Take 40 mg by mouth daily. Active BETA CAROTENE ORAL Take by mouth. Activ e psyllium (METAMUCIL) Powd Take by mouth. Active nitrofurantoin (MACROBID) 100 MG capsule Take 1 capsule (100 mg total) by mouth 2 (two) times a day for 7 days. 14 capsule 11/25/19 25 025 Active Problems Problem Noted Date Diagnosed Date Atrial fibrillation 03/26/2024 Assessment & Plan (09/24/2024 5:00 PM EDT): Persistent. Patient underwent a cardioversion on 07/31/2024. She remains in normal sinus rhythm today with a rate of 102 bpm. Will increase her metoprolol to 50 mg daily to see if we can get the heart rate down. Patient is currently on Xarelto for CVA prophylaxis and tolerating well. She denies any bleeding issues or cardiac symptoms at this time. Patient to follow-up in 3 months or sooner if necessary. Plan: Increase metoprolol to 50 mg daily Continue Xarelto Follow-up in 3 months Assessment & Plan (03/27/2024 10:51 AM EST): She does have a history of paroxysmal SVT for which she had undergone an ablation previously. In the office today she is found to be in new onset atrial fibrillation. Looking at her vital sign history she has been tachycardic for at least a couple months it looks like, no prior recent EKGs however. [id number] score is 5. She did recently have a UTI early February this was treated and she no longer has symptoms. She is asymptomatic from her arrhythmia Labs WNL in February, TSH not checked. She does not use ETOH. She has EDITH which is treated with CPAP. Check TSH with reflex Start Eliquis 5 mg twice daily Start metoprolol succinate 25 mg daily We will schedule her for cardioversion after she has been on anticoagulation for 30 days Follow-up with electrophysiology in 3 months to discuss rhythm control, will update echocardiogram prior Nonrheumatic aortic valve stenosis 03/26/2024 Assessment & Plan (03/26/2024 1:42 PM EST): She had mild aortic stenosis on echocardiogram in 2018. Follow-up echo in 2021 was nondiagnostic due to poor image quality. Update echocardiogram Chronic midline low back pain without sciatica 0 03/23/2024 Assessment & Plan (09/19/2024 4:55 PM EDT): Avoid prolonged standing, bending, stooping, heavy lifting, sudden turns, falls or injuries. Continue joint protection, energy conservation. Gentle, regular exercise routine. Work diligently on bringing her body weight as close as possible to ideal range for her height. She may benefit from topical cream such as Arnica, Biofreeze, Aspercreme versus medicated patches such as salonpas, icy hot patch 2-3 times daily and if necessary at bedtime x 3 weeks. Due to ongoing severe back pain, worse at night while laying down and multilevel degenerative changes on lumbar spine x-rays from 11/29/2023 at [facility] I offered her an appointment at [facility] that in the past was helpful to her. Assessment & Plan (03/23/2024 2:45 PM EST): Avoid prolonged standing, bending, stooping, heavy lifting, sudden turns, falls or injuries. Continue joint protection, energy conservation. Gentle, regular exercise routine. Work diligently on bringing her body weight as close as possible to ideal range for her height. She may benefit from topical cream such as Arnica, Biofreeze, Aspercreme versus medicated patches such as salonpas, icy hot patch 2-3 times daily and if necessary at bedtime x 3 weeks. Due to ongoing severe back pain, worse at night while laying down and multilevel degenerative changes on lumbar spine x-rays from 11/29/2023 at [facility] I offered her an appointment at [facility] that in the past was helpful to her. Tachycardia 03/23/2024 Assessment & Plan (03/23/2024 2:35 PM EST): She denies increased shortness of breath or chest pain. 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 She is tolerating this medication well. Will continue current management and follow-up in 3 months. Assessment & Plan (06/13/2023 2:43 PM EDT): Continue rosuvastatin 5 mg daily. Most recent LDL 49. LDL goal less than 70 with being a diabetic. She was started on Ozempic and is trying to lose weight. She is tolerating the rosuvastatin without an issue and she will continue without change. Osteoarthritis involving mul tiple joints on both sides of body 10/26/2022 10/26/2022 Assessment & Plan (03/23/2024 2:39 PM EST): Avoid falls, injuries, overuse. Joint protection, energy conservation techniques. Continue topical cream versus patch as needed. Consider using topicals in the form of sandwich technique toward most painful region at the time of flare. Work on reducing body weight as close as possible to ideal range for her height. Return to regular walking in a pool to reduce the stiffness, pain and help with muscle strength and stress Arthritis 10/26/2022 10/26/2022 Chronic RLQ pain 07/23/2022 Assessment & Plan (08/10/2022 4:58 PM EDT): I have have encouraged her to keep a diary of her RLQ abdominal pain episodes with attention to triggering factors if any, relation to her hydration, time of the day, stress level, food intake, severity, length of episode etc. to review it with wool dyer at requested GI consultation. Neck swelling 11/19/2021 Paresthesia 11/17/2020 Assessment & Plan (06/30/2021 8:27 PM EDT): Use warm packs and gentle massage in a circular motion starting from feet upwards to her knees and thighs particularly prior to bed rest. Proper hydration and well-balanced nutritionally diet, rich in electrolytes, micro and ultra elements. Assessment & Plan (02/18/2021 4:13 PM EST): Use warm packs and gentle massage in a circular motion starting from feet upwards to her knees and thighs particularly prior to bed rest. Proper hydration and well-balanced nutritionally diet, rich in electrolytes, micro and ultra elements. Assessment & Plan (11/20/2020 10:59 PM EDT): Use warm packs and gentle massage in a circular motion starting from feet upwards to her knees and thighs particularly prior to bed rest. Proper hydration and well-balanced nutritionally diet, rich in electrolytes, micro and ultra elements. Diabetic polyneuropathy asso ciated with type 2 diabetes mellitus 11/14/2019 Assessment & Plan (09/19/2024 4:55 PM EDT): She finds Lidoderm patches helpful for painful feet neuropathy Assessment & Plan (03/23/2024 1:35 PM EST): She finds Lidoderm patches helpful for painful feet neuropathy Assessment & Plan (11/16/2023 1:04 PM EDT): She finds Lidoderm patches helpful for painful feet neuropathy Assessment & Plan (08/18/2023 1:04 PM EDT): She finds Lidoderm patches helpful for painful feet neuropathy Assessment & Plan (04/15/2023 1:45 PM EST): She finds Lidoderm patches helpful for painful feet neuropathy Assessment & Plan (08/10/2022 4:52 PM EDT): She finds Lidoderm patches helpful for painful feet neuropathy Assessment & Plan (07/27/2022 12:36 PM EDT): A1c is obviously too high and LDL hopefully we can get under 70 I will cut the Crestor to 10 mg every other day and recheck in 3 months Assessment & Plan (06/04/2022 11:22 AM EDT): Severe obstructive we talked at length about diet and exercise A1c should ideally be less than 7 and LDL less than 70 mg/dL Assessment & Plan (06/30/2021 8:25 PM EDT): Follow closely with her PCP, despatching and receiving clerk, scientific research manager/diabetic nurse educator to optimize glucose control. 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 Follow closely with treating physician, dietitian, scientific research manager, diabetic nurse educator, despatching and receiving clerk exactly as scheduled. Aim at BS= 90-120 mg % Cervical radiculopathy 11/14/2019 Assessment & Plan (09/19/2024 4:55 PM EDT): Continue proper posture and neck support for nighttime. Avoid prolonged bending or extending without breaks in the interim. Gentle, regular stretching, ROM, muscle strengthening exercises preceded by the warm pack or warm shower. Consider gentle massage versus gentle traction versus acupuncture. Assessment & Plan (03/23/2024 1:35 PM EST): Continue proper posture and neck support for nighttime. Avoid prolonged bending or extending without breaks in the interim. Gentle, regular stretching, ROM, muscle strengthening exercises preceded by the warm pack or warm shower. Consider gentle massage versus gentle traction versus acupuncture. Assessment & Plan (11/16/2023 1:04 PM EDT): Continue proper posture and neck support for nighttime. Avoid prolonged bending or extending without breaks in the interim. Gentle, regular stretching, ROM, muscle strengthening exercises preceded by the warm pack or warm shower. Consider gentle massage versus gentle traction versus acupuncture. Assessment & Plan (08/18/2023 1:04 PM EDT): Continue proper posture and neck support for nighttime. Avoid prolonged bending or extending without breaks in the interim. Gentle, regular stretching, ROM, muscle strengthening exercises preceded by the warm pack or warm shower. Consider gentle massage versus gentle traction versus acupuncture. Assessment & Plan (04/15/2023 1:45 PM EST): Continue proper posture and neck support for nighttime. Avoid prolonged bending or extending without breaks in the interim. Gentle, regular stretching, ROM, muscle strengthening exercises preceded by the warm pack or warm shower. Consider gentle massage versus gentle traction versus acupuncture. Assessment & Plan (07/23/2022 2:19 PM EDT): Continue proper posture and neck support for nighttime. Avoid prolonged bending or extending without breaks in the interim. Gentle, regular stretching, ROM, muscle strengthening exercises preceded by the warm pack or warm shower. Consider gentle massage versus gentle traction versus acupuncture. Assessment & Plan (03/28/2022 9:06 PM EST): Continue proper posture and neck support for nighttime. Avoid prolonged bending or extending without breaks in the interim. Gentle, regular stretching, ROM, muscle strengthening exercises preceded by the warm pack or warm shower. Consider gentle massage versus gentle traction versus acupuncture. Assessment & Plan (11/17/2019 9:34 PM EDT): Proper posture and neck support for nighttime. Avoid prolonged bending or extending without breaks. Gentle, regular stretching, ROM muscle strengthening exercises. Consider gentle massage, craniosacral therapy versus gentle traction Inflammatory polyarthritis 08/24/2018 Assessment & Plan (09/19/2024 4:54 PM EDT): Due to previously ongoing elev CRP, severe pain and swelling around the joints of her hands and wrists and to lesser degree knees and feet I have suggested her to consider adding disease modifying anti- rheumatic medication (DMARDs) such as Methotrexate or Arava. 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 She is too scared about possible side effects On previous visit for the first time in years her inflammatory indices were normal! She remains hesitant to add any DMARDs Assessment & Plan (03/23/2024 2:41 PM EST): Due to previously ongoing elev CRP, severe pain and swelling around the joints of her hands and wrists and to lesser degree knees and feet I have suggested her to consider adding disease modifying anti- rheumatic medication (DMARDs) such as Methotrexate or Arava. 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 She is too scared about possible side effects On previous visit for the first time in years her inflammatory indices were normal! She remains hesitant to add any DMARDs Assessment & Plan (11/19/2023 5:26 PM EDT): Due to previously ongoing elev CRP, severe pain and swelling around the joints of her hands and wrists and to lesser degree knees and feet I have suggested her to consider adding disease modifying anti- rheumatic medication such as Methotrexate or Arava. 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 She is too scared about possible side effects Today for the first time in years her inflammatory indices are normal! We all hope that they will stay within normal range. Assessment & Plan (08/18/2023 1:05 PM EDT): Due to ongoing elev CRP, severe pain and swelling around the joints of her hands and wrists and to lesser degree knees and feet I have suggested her to consider adding disease modifying anti- rheumatic medication such as Methotrexate or Arava. 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 She is too scared about possible side effects Assessment & Plan (04/17/2023 1:46 PM EST): Due to ongoing elev CRP, severe pain and swelling around the joints of her hands and wrists and to lesser degree knees and feet I have suggested her to consider adding disease modifying anti- rheumatic medication such as Methotrexate or Arava. 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 She is too scared about possible side effects Assessment & Plan (08/10/2022 4:53 PM EDT): Due to ongoing elev CRP, severe pain and swelling around the joints of her hands and wrists and to lesser degree knees and feet I have suggested her to consider adding disease modifying anti- rheumatic medication such as Methotrexate or Arava. 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 Assessment & Plan (03/26/2022 2:22 PM EST): Due to ongoing elev CRP, severe pain and swelling around the joints of her hands and wrists and to lesser degree knees and feet I have suggested her to consider adding disease modifying anti- rheumatic medication such as Methotrexate or Arava. 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 I provided her with a list of side effects for each of medication to read about and write her questions for discussion on previous visit She had to postpone the decision about those medications until her partner gets settled after bone marrow transplant She is not ready to decide yet Tremor 08/24/2018 Assessment & Plan (09/19/2024 4:55 PM EDT): Monitor carefully and watch for modifying factors. Follow-up with neurologist as scheduled. Assessment & Plan (03/23/2024 1:34 PM EST): Monitor carefully and watch for modifying factors. Follow-up with neurologist as scheduled. Assessment & Plan (08/20/2023 10:02 PM EDT): Monitor carefully and watch for modifying factors. Follow-up with neurologist as scheduled. Assessment & Plan (12/23/2018 5:24 PM EDT): Monitor carefully and watch for modifying factors. Follow-up with neurologist as scheduled. Assessment & Plan (08/27/2018 11:26 AM EDT): Monitor carefully and watch for modifying factors. Follow-up with neurologist as scheduled. Neck pain 08/24/2018 Assessment & Plan (12/23/2018 5:24 PM EDT): Proper posture and neck support for nighttime. Avoid prolonged bending or extending without breaks. Gentle, regular stretching, ROM muscle strengthening exercises. Consider gentle massage, craniosacral therapy versus gentle traction Assessment & Plan (08/27/2018 11:29 AM EDT): Proper posture and neck support for nighttime. Avoid prolonged bending or extending without breaks. Gentle, regular stretching, ROM muscle strengthening exercises. Consider gentle massage, craniosacral therapy versus gentle traction Hyperuricemia 01/27/2018 Assessment & Plan (09/19/2024 4:54 PM EDT): Carefully continue allopurinol 1.5 tablet = 450 mg daily to keep serum uric acid below 6 mg %. Low purine diet. Proper hydration. Monitor for any signs of skin rash, abdominal pain, unusual fatigue etc. Continue tart hedrick drink Assessment & Plan (03/23/2024 1:35 PM EST): Carefully continue allopurinol 1.5 tablet = 450 mg daily to keep serum uric acid below 6 mg %. Low purine diet. Proper hydration. Monitor for any signs of skin rash, abdominal pain, unusual fatigue etc. Continue tart hedrick drink Assessment & Plan (11/19/2023 5:46 PM EDT): Carefully continue allopurinol 1.5 tablet = 450 mg daily to keep serum uric acid below 6 mg %. Low purine diet. Proper hydration. Monitor for any signs of skin rash, abdominal pain, unusual fatigue etc. Continue tart hedrick drink Assessment & Plan (08/20/2023 10:02 PM EDT): Carefully increase allopurinol from 300 mg daily to 1.5 tablet = 450 mg daily in an effort to bring serum uric acid below 6 mg %. Low purine diet. Proper hydration. Monitor for any signs of skin rash, abdominal pain, unusual fatigue etc. Continue tart hedrick drink Assessment & Plan (04/15/2023 1:45 PM EST): Carefully continue allopurinol to 300 mg daily in an effort to bring serum uric acid below 6 mg %. Low purine diet. Proper hydration. Monitor for any signs of skin rash, abdominal pain, unusual fatigue etc. Continue tart hedrick drink Assessment & Plan (07/23/2022 2:22 PM EDT): Carefully continue allopurinol to 300 mg daily in an effort to bring serum uric acid below 6 mg %. Low purine diet. Proper hydration. Monitor for any signs of skin rash, abdominal pain, unusual fatigue etc. Continue tart hedrick drink Assessment & Plan (03/28/2022 9:04 PM EST): Carefully continue allopurinol to 300 mg daily in an effort to bring serum uric acid below 6 mg %. Low purine diet. Proper hydration. Monitor for any signs of skin rash, abdominal pain, unusual fatigue etc. Continue tart hedrick drink Assessment & Plan (11/19/2021 3:45 PM EDT): Carefully increase allopurinol to 300 mg daily in an effort to bring serum uric acid below 6 mg %. Low purine diet. Proper hydration. Monitor for any signs of skin rash, abdominal pain, unusual fatigue etc. Continue tart hedrick drink Assessment & Plan (06/25/2021 3:55 PM EDT): Carefully increase allopurinol to 300 mg daily in an effort to bring serum uric acid below 6 mg %. Low purine diet. Proper hydration. Monitor for any signs of skin rash, abdominal pain, unusual fatigue etc. Continue tart hedrick drink Assessment & Plan (02/18/2021 4:12 PM EST): Carefully increase allopurinol to 300 mg daily in an effort to bring serum uric acid below 6 mg %. Low purine diet. Proper hydration. Monitor for any signs of skin rash, abdominal pain, unusual fatigue etc. Continue tart hedrick drink Assessment & Plan (11/17/2020 3:41 PM EDT): Carefully increase allopurinol to 300 mg daily in an effort to bring serum uric acid below 6 mg %. Low purine diet. Proper hydration. Monitor for any signs of skin rash, abdominal pain, unusual fatigue etc. Continue tart hedrick drink Assessment & Plan (10/07/2020 11:09 AM EDT): Carefully increase allopurinol to 300 mg daily in an effort to bring serum uric acid below 6 mg %. Low purine diet. Proper hydration. Monitor for any signs of skin rash, abdominal pain, unusual fatigue etc. Continue tart hedrick drink Assessment & Plan (11/17/2019 9:32 PM EDT): Continue allopurinol as prescribed. Low purine diet. Proper hydration. Monitor for any signs of skin rash, abdominal pain, unusual fatigue etc. Continue tart hedrick drink Assessment & Plan (12/23/2018 5:22 PM EDT): Continue allopurinol as prescribed. Low purine diet. Proper hydration. Monitor for any signs of skin rash, abdominal pain, unusual fatigue etc. Continue tart hedrick drink Assessment & Plan (08/27/2018 11:19 AM EDT): Continue allopurinol as prescribed. Low purine diet. Proper hydration. Monitor for any signs of skin rash, abdominal pain, unusual fatigue etc. Continue tart hedrick drink Assessment & Plan (05/30/2018 9:22 PM EDT): Continue allopurinol as prescribed. Low purine diet. Proper hydration. Monitor for any signs of skin rash, abdominal pain, unusual fatigue etc. Continue tart hedrick drink Right shoulder pain 09/13/2017 Paroxysmal supraventricular tachycardia 09/14/19 18 Assessment & Plan (09/24/2024 4:58 PM EDT): Status post previous ablation. No known recurrence. Assessment & Plan (06/13/2023 2:42 PM EDT): She denies any palpitations or any symptoms for paroxysmal supraventricular tachycardia. Assessment & Plan (12/06/2022 1:25 PM EDT): Completely asymptomatic from an arrhythmia standpoint Assessment & Plan (07/27/2022 12:35 PM EDT): No recurrent symptoms Assessment & Plan (06/04/2022 11:21 AM EDT): She has had an ablation in the past doing well from that standpoint with no recurrent SVT Assessment & Plan (08/25/2021 1:08 PM EDT): This patient had an SVT ablation in the past with no recurrence Assessment & Plan (10/20/2020 11:38 AM EDT): Asymptomatic at this time resting heart rate is around 100 which is not surprising Assessment & Plan (12/05/2017 11:11 AM EDT): This patient had an SVT ablation in 2006 rendering her symptom-free since then. I will follow-up with her twice a year Other chest pain 09/13/2017 Dyspnea on exertion 09/13/2017 Assessment & Plan (06/13/2023 2:42 PM EDT): Asymptomatic at this time. Assessment & Plan (12/06/2022 1:25 PM EDT): Asymptomatic at this time Assessment & Plan (07/27/2022 12:35 PM EDT): This is chronic stable and unchanged Assessment & Plan (06/04/2022 11:22 AM EDT): As mentioned we are going to work on her weight which will probably have a big impact on her shortness of breath Assessment & Plan (08/25/2021 1:07 PM EDT): Stable at this time but I am ordering an updated echo for her Assessment & Plan (10/20/2020 11:38 AM EDT): She has shortness of breath due to lung disease and obesity Assessment & Plan (12/05/2017 11:11 AM EDT): Recent echo and stress test as mentioned above were essentially unremarkable. Chronic gout of left foot 09/13/2017 Assessment & Plan (11/20/2020 11:03 PM EDT): Well fitting, supportive shoes. Proper hydration: 6-8 glasses (8 ounces each) of fluids daily Avoid falls, injuries, overuse. Low purine diet and continue allopurinol exactly as prescribed. Class 2 severe obesity due t o excess calories with serious comorbidity and body mass index (BMI) of 39.0 to 39.9 in adult 09/13/2017 Assessment & Plan (10/21/2024 9:41 PM EDT): Congratulations on losing 2 pounds from 220 on 03/23/2024 down to 218 today and keep it off. Continue diligent portion control. Limit concentrated sugars, saturated fats and calories in the diet. Keep well-hydrated. If unable to achieve expected goal consider formal dietary/nutritional support. EDITH on CPAP 09/13/2017 Assessment & Plan (09/19/2024 4:55 PM EDT): More than likely this is due to severe obesity-continue nightly CPAP Assessment & Plan (03/23/2024 1:34 PM EST): More than likely this is due to severe obesity-continue nightly CPAP Assessment & Plan (11/16/2023 1:03 PM EDT): More than likely this is due to severe obesity-continue nightly CPAP Assessment & Plan (08/20/2023 10:01 PM EDT): More than likely this is due to severe obesity-continue nightly CPAP Assessment & Plan (04/15/2023 1:45 PM EST): More than likely this is due to severe obesity Assessment & Plan (07/27/2022 12:35 PM EDT): More than likely this is due to severe obesity Assessment & Plan (03/26/2022 2:25 PM EST): Continue nightly CPAP and efforts on bringing her body weight as close as possible to ideal range for her height. Assessment & Plan (12/17/2021 10:47 PM EDT): Continue nightly CPAP and efforts on bringing her body weight as close as possible to ideal range for her height. Assessment & Plan (08/25/2021 1:07 PM EDT): This patient is obviously overweight but is trying to lose weight I encouraged her to continue doing so Assessment & Plan (06/25/2021 3:55 PM EDT): Work very diligently on reducing body weight as close as possible to ideal range for her height. Use CPAP nightly Follow regularly with respiratory therapy/insulation mechanic as scheduled Assessment & Plan (02/18/2021 4:13 PM EST): Work very diligently on reducing body weight as close as possible to ideal range for her height. Use CPAP nightly Follow regularly with respiratory therapy/insulation mechanic as scheduled Assessment & Plan (10/20/2020 11:39 AM EDT): Being treated on a regular basis Assessment & Plan (10/03/2020 2:39 PM EDT): Work very diligently on reducing body weight as close as possible to ideal range for her height. Use CPAP nightly Follow regularly with respiratory therapy/insulation mechanic as scheduled Assessment & Plan (11/17/2019 9:32 PM EDT): Work very diligently on reducing body weight as close as possible to ideal range for her height. Use CPAP nightly Follow regularly with respiratory therapy/insulation mechanic as scheduled Assessment & Plan (08/27/2018 11:18 AM EDT): Work very diligently on reducing body weight as close as possible to ideal range for her height. Use CPAP nightly Follow regularly with respiratory therapy/insulation mechanic as scheduled Assessment & Plan (05/30/2018 9:21 PM EDT): Work very diligently on reducing body weight as close as possible to ideal range for her height. Use CPAP nightly Follow regularly with respiratory therapy/insulation mechanic as scheduled. Assessment & Plan (12/05/2017 11:11 AM EDT): I stressed weight loss with cutting back her calories as she is not going to be able to exercise much due to her muscular skeletal limitations. Fibromyalgia 03/16/2017 Assessment & Plan (09/19/2024 4:54 PM EDT): Carefully restart amitriptyline 10 mg every morning x 2 weeks and if no side effects but not enough benefit take 20 mg nightly afterwards. Monitor for increased grogginess, urinary hesitancy, mouth dryness etc. Consider personal psychotherapy with addition of CBT and DNRS (dynamic neural retraining system) Keep engaged in regular hobbies/favorite activities. Explore access to warm pool therapy in her neighborhood and return to regular walking in a pool or [place] during the summer. Continue positive imagery, meditation, relaxation, stress reduction strategies. She may benefit from using mindfulness approach as described in book written by Dr Gaurav Rajput [facility] Another helpful options are to read book by Dr. Rufina Law: Managing pain before it manages you and Dr Kole Larkin Unlearn your pain . Assessment & Plan (03/23/2024 1:35 PM EST): Carefully restart amitriptyline 10 mg every morning x 2 weeks and if no side effects but not enough benefit take 20 mg nightly afterwards. Monitor for increased grogginess, urinary hesitancy, mouth dryness etc. Consider personal psychotherapy with addition of CBT and DNRS (dynamic neural retraining system) Keep engaged in regular hobbies/favorite activities. Explore access to warm pool therapy in her neighborhood and return to regular walking in a pool or [place] during the summer. Continue positive imagery, meditation, relaxation, stress reduction strategies. She may benefit from using mindfulness approach as described in book written by Dr Gaurav Núñez [facility] Another helpful options are to read book by Dr. Rufina Law: Managing pain before it manages you and Dr Kole Larkin Unlearn your pain . Assessment & Plan (11/19/2023 5:43 PM EDT): Carefully restart amitriptyline 10 mg every morning x 2 weeks and if no side effects but not enough benefit take 20 mg nightly afterwards. Monitor for increased grogginess, urinary hesitancy, mouth dryness etc. Consider personal psychotherapy with addition of CBT and DNRS (dynamic neural retraining system) Keep engaged in regular hobbies/favorite activities. Explore access to warm pool therapy in her neighborhood and return to regular walking in a pool or agu[place] during the summer. Continue positive imagery, meditation, relaxation, stress reduction strategies. She may benefit from using mindfulness approach as described in book written by Dr Gaurav [facility] Another helpful options are to read book by Dr. Rufina Law: Managing pain before it manages you and Dr Kole Larkin Unlearn your pain . Assessment & Plan (08/20/2023 10:00 PM EDT): Carefully restart amitriptyline 10 mg every morning x 2 weeks and if no side effects but not enough benefit take 20 mg nightly afterwards. Monitor for increased grogginess, urinary hesitancy, mouth dryness etc. Consider personal psychotherapy with addition of CBT and DNRS (dynamic neural retraining system) Keep engaged in regular hobbies/favorite activities. Explore access to warm pool therapy in her neighborhood and return to regular walking in a pool or agu[place] during the summer. Continue positive imagery, meditation, relaxation, stress reduction strategies. She may benefit from using mindfulness approach as described in book written by Dr Gaurav Núñez [facility] Another helpful option is to read book by Dr Kole Larkin Unlearn your pain Assessment & Plan (04/15/2023 1:44 PM EST): Carefully restart amitriptyline 10 mg every morning x 2 weeks and if no side effects but not enough benefit take 20 mg nightly afterwards. Monitor for increased grogginess, urinary hesitancy, mouth dryness etc. Consider personal psychotherapy with addition of CBT and DNRS (dynamic neural retraining system) Keep engaged in regular hobbies/favorite activities. Explore access to warm pool therapy in her neighborhood and return to regular walking in a pool or agu[place] during the summer. Continue positive imagery, meditation, relaxation, stress reduction strategies. She may benefit from using mindfulness approach as described in book written by Dr Gaurav Rajput [facility] Another helpful option is to read book by Dr Kole Larkin Unlearn your pain Assessment & Plan (08/10/2022 4:56 PM EDT): Carefully restart amitriptyline 10 mg every morning x 2 weeks and if no side effects but not enough benefit take 20 mg nightly afterwards. Monitor for increased grogginess, urinary hesitancy, mouth dryness etc. Consider personal psychotherapy with addition of CBT and DNRS (dynamic neural retraining system) Keep engaged in regular hobbies/favorite activities. Explore access to warm pool therapy in her neighborhood and return to regular walking in a pool or agu[place] during the summer. Continue positive imagery, meditation, relaxation, stress reduction strategies. She may benefit from using mindfulness approach as described in book written by Dr Gaurav Rajput [facility] Another helpful option is to read book by Dr Kole Larkin Unlearn your pain Assessment & Plan (03/26/2022 2:24 PM EST): Carefully take amitriptyline 10 mg every morning + 10 mg midday + 25 mg at nighttime . Monitor for increased grogginess, urinary hesitancy, mouth dryness etc. Consider personal psychotherapy with addition of CBT and DNRS (dynamic neural retraining system) Keep engaged in regular hobbies/favorite activities. Explore access to warm pool therapy in her neighborhood and return to regular walking in a pool or agu[place] during the summer. Continue positive imagery, meditation, relaxation, stress reduction strategies. She may benefit from using mindfulness approach as described in book written by Dr Gaurav Rajput [facility] Assessment & Plan (11/19/2021 3:43 PM EDT): Carefully take amitriptyline 10 mg every morning + 10 mg midday + 25 mg at nighttime . Monitor for increased grogginess, urinary hesitancy, mouth dryness etc. Consider personal psychotherapy with addition of CBT and DNRS (dynamic neural retraining system) Keep engaged in regular hobbies/favorite activities. Explore access to warm pool therapy in her neighborhood and return to regular walking in a pool or agu[place] during the summer. Continue positive imagery, meditation, relaxation, stress reduction strategies. She may benefit from using mindfulness approach as described in book written by Dr Gaurav Rajput [facility] Assessment & Plan (06/30/2021 8:27 PM EDT): Carefully take amitriptyline 10 mg every morning + 10 mg midday + 25 mg at nighttime . Monitor for increased grogginess, urinary hesitancy, mouth dryness etc. Consider personal psychotherapy with addition of CBT and DNRS (dynamic neural retraining system) Keep engaged in regular hobbies/favorite activities. Explore access to warm pool therapy in her neighborhood and return to regular walking in a pool or agu[place] during the summer. Continue positive imagery, meditation, relaxation, stress reduction strategies. She may benefit from using mindfulness approach as described in book written by Dr Gaurav Rajput [facility] Assessment & Plan (02/18/2021 4:12 PM EST): Carefully continue current dose of amitriptyline at 60 mg at bed time as it helps sleep and pain level. Monitor for increased grogginess, urinary hesitancy, mouth dryness etc. Consider personal psychotherapy with addition of CBT and DNRS (dynamic neural retraining system) Keep engaged in regular hobbies/favorite activities. Explore access to warm pool therapy in her neighborhood and return to regular walking in a pool or [place] during the summer. Continue positive imagery, meditation, relaxation, stress reduction strategies Assessment & Plan (10/03/2020 2:39 PM EDT): Carefully continue current dose of amitriptyline at 60 mg at bed time as it helps sleep and pain level. Monitor for increased grogginess, urinary hesitancy, mouth dryness etc. Consider personal psychotherapy with addition of CBT and DNRS (dynamic neural retraining system) Keep engaged in regular hobbies/favorite activities. Explore access to warm pool therapy in her neighborhood and return to regular walking in a pool or [place] during the summer. Continue positive imagery, meditation, relaxation, stress reduction strategies Assessment & Plan (11/17/2019 9:34 PM EDT): Carefully continue current dose of amitriptyline at 60 mg at bed time as it helps sleep and pain level. Monitor for increased grogginess, urinary hesitancy, mouth dryness etc. Consider personal psychotherapy with addition of CBT and DNRS (dynamic neural retraining system) Keep engaged in regular hobbies/favorite activities. Explore access to warm pool therapy in her neighborhood and return to regular walking in a pool or [place] during the summer. Continue positive imagery, meditation, relaxation, stress reduction strategies Assessment & Plan (12/23/2018 5:24 PM EDT): Carefully continue current dose of amitriptyline at 60 mg at bed time as it helps sleep and pain level. Monitor for increased grogginess, urinary hesitancy, mouth dryness etc. Consider personal psychotherapy with addition of CBT and DNRS (dynamic neural retraining system) Keep engaged in regular hobbies/favorite activities. Explore access to warm pool therapy in her neighborhood and return to regular walking in a pool or agu[place] during the summer. Continue positive imagery, meditation, relaxation, stress reduction strategies Assessment & Plan (08/27/2018 11:25 AM EDT): Carefully continue current dose of amitriptyline at 60 mg at bed time as it helps sleep and pain level. Monitor for increased grogginess, urinary hesitancy, mouth dryness etc. Consider personal psychotherapy with addition of CBT and DNRS (dynamic neural retraining system) Keep engaged in regular hobbies/favorite activities. Explore access to warm pool therapy in her neighborhood and return to regular walking in a pool or agu[place] during the summer. Continue positive imagery, meditation, relaxation, stress reduction strategies Assessment & Plan (05/30/2018 9:30 PM EDT): Carefully continue current dose of amitriptyline at 60 mg at bed time as it helps sleep and pain level. Monitor for increased grogginess, urinary hesitancy, mouth dryness etc. Consider personal psychotherapy with addition of CBT and DNRS (dynamic retraining system) Keep engaged in regular hobbies/favorite activities. Explore access to warm pool therapy in her neighborhood and return to regular walking in a pool or agu[place] during the summer. Continue positive imagery, meditation, relaxation, stress reduction strategies Primary osteoarthritis involving multiple joints 03/16/2017 Assessment & Plan (10/21/2024 9:43 PM EDT): Avoid falls, injuries, overuse. Joint protection, energy conservation techniques. Continue topical cream versus patch as needed. Consider using topicals in the form of sandwich technique toward most painful region at the time of flare. Work on reducing body weight as close as possible to ideal range for her height. Return to regular walking in a pool to reduce the stiffness, pain and help with muscle strength and stress Assessment & Plan (11/16/2023 1:30 PM EDT): Avoid falls, injuries, overuse. Joint protection, energy conservation techniques. Continue topical cream versus patch as needed. Consider using topicals in the form of sandwich technique toward most painful region at the time of flare. Work on reducing body weight as close as possible to ideal range for her height. Return to regular walking in a pool to reduce the stiffness, pain and help with muscle strength and stress Procedure: After an informed written consent, under sterile conditions using Ethyl chloride spray for local anesthesia I have injected 40 mg Kenalog and 2 cc 1% Lidocaine into Right knee from infero-medial approach uneventfully. Details of post-procedure care were explained to the patient in the office and given in writing. Provider: Jaylin Miller MD Patient: Kerwin Barakat : 1945 Date: 11/16/2023 Assessment & Plan (08/18/2023 1:05 PM EDT): Avoid falls, injuries, overuse. Joint protection, energy conservation techniques. Continue topical cream versus patch as needed. Consider using topicals in the form of sandwich technique toward most painful region at the time of flare. Work on reducing body weight as close as possible to ideal range for her height. Return to regular walking in a pool to reduce the stiffness, pain and help with muscle strength and stress Assessment & Plan (04/15/2023 1:44 PM EST): Avoid falls, injuries, overuse. Joint protection, energy conservation techniques. Continue topical cream versus patch as needed. Consider using topicals in the form of sandwich technique toward most painful region at the time of flare. Work on reducing body weight as close as possible to ideal range for her height. Return to regular walking in a pool to reduce the stiffness, pain and help with muscle strength and stress Assessment & Plan (07/23/2022 2:10 PM EDT): Avoid falls, injuries, overuse. Joint protection, energy conservation techniques. Continue topical cream versus patch as needed. Consider using topicals in the form of sandwich technique toward most painful region at the time of flare. Work on reducing body weight as close as possible to ideal range for her height. Return to regular walking in a pool to reduce the stiffness, pain and help with muscle strength and stress Assessment & Plan (03/28/2022 9:07 PM EST): Avoid falls, injuries, overuse. Joint protection, energy conservation techniques. Continue topical cream versus patch as needed. Consider using topicals in the form of sandwich technique toward most painful region at the time of flare. Work on reducing body weight as close as possible to ideal range for her height. Return to regular walking in a pool to reduce the stiffness, pain and help with muscle strength and stress Assessment & Plan (11/19/2021 3:41 PM EDT): Avoid falls, injuries, overuse. Joint protection, energy conservation techniques. Continue topical cream versus patch as needed. Work on reducing body weight as close as possible to ideal range for her height. Return to regular walking in a pool to reduce the stiffness, pain and help with muscle strength and stress Assessment & Plan (06/30/2021 8:25 PM EDT): Avoid falls, injuries, overuse. Joint protection, energy conservation techniques. Continue topical cream versus patch as needed. Work on reducing body weight as close as possible to ideal range for her height. Return to regular walking in a pool to reduce the stiffness, pain and help with muscle strength and stress Assessment & Plan (02/18/2021 4:12 PM EST): Avoid falls, injuries, overuse. Joint protection, energy conservation techniques. Continue topical cream versus patch as needed. Work on reducing body weight as close as possible to ideal range for her height. Return to regular walking in a pool to reduce the stiffness, pain and help with muscle strength and stress Assessment & Plan (10/07/2020 11:09 AM EDT): Avoid falls, injuries, overuse. Joint protection, energy conservation techniques. Continue topical cream versus patch as needed. Work on reducing body weight as close as possible to ideal range for her height. Return to regular walking in a pool to reduce the stiffness, pain and help with muscle strength and stress Assessment & Plan (11/14/2019 4:35 PM EDT): Avoid falls, injuries, overuse. Joint protection, energy conservation techniques. Continue topical cream versus patch as needed. Work on reducing body weight as close as possible to ideal range for her height. Return to regular walking in a pool to reduce the stiffness, pain and help with muscle strength and stress Get the yearly influenza vaccination by December 2019. Assessment & Plan (12/23/2018 5:26 PM EDT): Avoid falls, injuries, overuse. Joint protection, energy conservation techniques. Continue topical cream versus patch as needed. Work on reducing body weight as close as possible to ideal range for her height. Return to regular walking in a pool to reduce the stiffness, pain and help with muscle strength and stress Get the yearly influenza vaccination by December 2018. Assessment & Plan (08/27/2018 11:22 AM EDT): Avoid falls, injuries, overuse. Joint protection, energy conservation techniques. Continue topical cream versus patch as needed. Work on reducing body weight as close as possible to ideal range for her height. Return to regular walking in a pool to reduce the stiffness, pain and help with muscle strength and stress PT guided exercise program to improve shoulder mobility Assessment & Plan (05/30/2018 9:25 PM EDT): Avoid falls, injuries, overuse. Joint protection, energy conservation techniques. Continue topical cream versus patch as needed. Work on reducing body weight as close as possible to ideal range for her height. Return to regular walking in a pool to reduce the stiffness, pain and help with muscle strength and stress PT guided exercise program to improve shoulder mobility Vitamin D deficiency 03/16/2017 Assessment & Plan (03/26/2022 2:25 PM EST): Continue vitamin D supplementation to maintain optimal serum level at 40-45 ng/ml. Assessment & Plan (11/19/2021 3:45 PM EDT): Continue vitamin D supplementation to maintain optimal serum level at 40-45 ng/ml. Assessment & Plan (02/18/2021 4:13 PM EST): Continue vitamin D supplementation to maintain optimal serum level at 40-45 ng/ml. Assessment & Plan (10/07/2020 11:08 AM EDT): Continue vitamin D supplementation to maintain optimal serum level at 40-45 ng/ml. Memory loss 03/16/2017 Resolved Problems Problem Noted Date Diagnosed Date Resolved Date On allopurinol therapy 11/14/201707/23 Assessment & Plan (03/28/2022 9:06 PM EST): Drink 6-8 glasses (8 oz each) daily, most of it no later than ~ 5-6 :00 pm Continue low purine diet & hedrick juice/tart Joint protection/ energy conservation Avoid falls/injuries Continue allopurinol 300 mg daily Assessment & Plan (11/19/2021 3:45 PM EDT): Drink 6-8 glasses (8 oz each) daily, most of it no later than ~ 5-6 :00 pm Continue low purine diet & hedrick juice/tart Joint protection/ energy conservation Avoid falls/injuries Continue allopurinol 300 mg daily Assessment & Plan (06/25/2021 3:55 PM EDT): Drink 6-8 glasses (8 oz each) daily, most of it no later than ~ 5-6 :00 pm Continue low purine diet & hedrick juice/tart Joint protection/ energy conservation Avoid falls/injuries Continue allopurinol 300 mg daily Assessment & Plan (02/18/2021 4:13 PM EST): Drink 6-8 glasses (8 oz each) daily, most of it no later than ~ 5-6 :00 pm Continue low purine diet & hedrick juice/tart Joint protection/ energy conservation Avoid falls/injuries Continue allopurinol 300 mg daily Assessment & Plan (11/20/2020 10:58 PM EDT): Drink 6-8 glasses (8 oz each) daily, most of it no later than ~ 5-6 :00 pm Continue low purine diet & hedrick juice/tart Joint protection/ energy conservation Avoid falls/injuries Continue allopurinol 300 mg daily Assessment & Plan (10/03/2020 2:39 PM EDT): Drink 6-8 glasses (8 oz each) daily, most of it no later than ~ 5-6 :00 pm Continue low purine diet & hedrick juice/tart Joint protection/ energy conservation Avoid falls/injuries Continue allopurinol 200 mg daily Assessment & Plan (11/17/2019 9:35 PM EDT): Drink 6-8 glasses (8 oz each) daily, most of it no later than ~ 5-6 :00 pm Continue low purine diet & hedrick juice/tart Joint protection/ energy conservation Avoid falls/injuries Continue allopurinol 200 mg daily Assessment & Plan (12/23/2018 5:24 PM EDT): Drink 6-8 glasses (8 oz each) daily, most of it no later than ~ 5-6 :00 pm Continue low purine diet & hedrick juice/tart Joint protection/ energy conservation Avoid falls/injuries Continue allopurinol from 200 mg daily Assessment & Plan (05/30/2018 9:31 PM EDT): Drink 6-8 glasses (8 oz each) daily, most of it no later than ~ 5-6 :00 pm Continue low purine diet & hedrick juice/tart Joint protection/ energy conservation Avoid falls/injuries Continue allopurinol from 200 mg daily Class 3 obesity due to exces s calories with serious comorbidity and body mass index (BMI) of 40.0 to 44.9 in adult 03/16/2017 10/21/2024 Assessment & Plan (03/23/2024 2:42 PM EST): Congratulations on losing 3 pounds from 223 on 11/16/2023 down to 220 today and keep it off. Continue diligent portion control. Limit concentrated sugars, saturated fats and calories in the diet. Keep well-hydrated. If unable to achieve expected goal consider formal dietary/nutritional support. Assessment & Plan (11/19/2023 5:44 PM EDT): Congratulations on losing 5 pounds from 228 on 08/18/2023 down to 223 today and keep it off. Continue diligent portion control. Limit concentrated sugars, saturated fats and calories in the diet. Keep well-hydrated. If unable to achieve expected goal consider formal dietary/nutritional support. Assessment & Plan (08/20/2023 10:01 PM EDT): Congratulations on losing 17 pounds from 245 on 04/15/2023 down to 228 today and keep it off. Continue diligent portion control. Limit concentrated sugars, saturated fats and calories in the diet. Keep well-hydrated. If unable to achieve expected goal consider formal dietary/nutritional support. Assessment & Plan (04/17/2023 1:48 PM EST): Continue diligent portion control especially in view of gaining 4 pounds since last visit in early July 2022 from 241 lbs up to 245 lbs today. Limit concentrated sugars, saturated fats and calories in the diet. Keep well-hydrated. If unable to achieve expected goal consider formal dietary/nutritional support. Assessment & Plan (12/06/2022 1:25 PM EDT): At this time LDL is in the high 90s we will try to lower this less than 70 with Crestor 5 mg in the evening time Assessment & Plan (08/10/2022 4:51 PM EDT): Continue diligent portion control. Limit concentrated sugars, saturated fats and calories in the diet. Keep well-hydrated. If unable to achieve expected goal consider formal dietary/nutritional support. Assessment & Plan (03/28/2022 9:04 PM EST): Continue diligent portion control. Limit concentrated sugars, saturated fats and calories in the diet. Keep well-hydrated. If unable to achieve expected goal consider formal dietary/nutritional support. . Assessment & Plan (11/19/2021 3:42 PM EDT): Portion control. Limit concentrated sugars, saturated fats and calories in the diet. Keep well-hydrated. If unable to achieve expected goal consider formal dietary/nutritional support. Assessment & Plan (06/30/2021 8:23 PM EDT): Continue diligent portion control. Limit concentrated sugars, saturated fats and calories in the diet. Keep well-hydrated. If unable to achieve expected goal consider formal dietary/nutritional support. Assessment & Plan (02/18/2021 4:12 PM EST): Portion control. Limit concentrated sugars, saturated fats and calories in the diet. Keep well-hydrated. If unable to achieve expected goal consider formal dietary/nutritional support. Assessment & Plan (11/17/2020 3:40 PM EDT): Portion control. Limit concentrated sugars, saturated fats and calories in the diet. Keep well-hydrated. If unable to achieve expected goal consider formal dietary/nutritional support. Assessment & Plan (10/03/2020 2:40 PM EDT): Portion control. Limit concentrated sugars, saturated fats and calories in the diet. Keep well-hydrated. If unable to achieve expected goal consider formal dietary/nutritional support. Assessment & Plan (11/17/2019 9:32 PM EDT): Portion control. Limit concentrated sugars, saturated fats and calories in the diet. Keep well-hydrated. If unable to achieve expected goal consider formal dietary/nutritional support. Assessment & Plan (08/27/2018 11:19 AM EDT): Portion control. Limit concentrated sugars, saturated fats and calories in the diet. Keep well-hydrated. If unable to achieve expected goal consider formal dietary/nutritional support. Assessment & Plan (05/30/2018 9:22 PM EDT): Portion control. Limit concentrated sugars, saturated fats and calories in the diet. Keep well-hydrated. If unable to achieve expected goal consider formal dietary/nutritional support. prison current use of non -steroidal anti-inflammatories (NSAID) 03/16/2017 09/14/2017 Inflammatory arthritis 03/16/201702/18 Assessment & Plan (11/17/2020 3:44 PM EDT): Due to ongoing elev CRP, severe pain and swelling around the joints of her hands and wrists and to lesser degree knees and feet I have suggested her to consider adding disease modifying anti- rheumatic medication such as Methotrexate or Arava. I provided her with a list of side effects for each of medication to read about and write her questions for discussion on previous visit She had to postpone the decision about those medications until her gets settled after bone marrow transplant She is not ready to decide yet and prefers to try full anti-inflammatory dose of Aleve 440 mg 2-3 times daily with food x 7 days and call me regarding response or earlier if problems or questions Assessment & Plan (11/14/2019 4:35 PM EDT): Due to ongoing elev CRP, severe pain and swelling around the joints of her hands and wrists and to lesser degree knees and feet I have suggested her to consider adding disease modifying anti- rheumatic medication such as Methotrexate or Arava. I provided her with a list of side effects for each of medication to read about and write her questions for discussion on previous visit She had to postpone the decision about those medications until her partner gets settled after bone marrow transplant She is not ready to decide yet Assessment & Plan (12/23/2018 5:23 PM EDT): Due to ongoing elev CRP, severe pain and swelling around the joints of her hands and wrists and to lesser degree knees and feet I have suggested her to consider adding disease modifying anti- rheumatic medication such as Methotrexate or Arava. I provided her with a list of side effects for each of medication to read about and write her questions for discussion on previous visit She had to postpone the decision about those medications until her partner gets settled after bone marrow transplant She is not ready to decide yet Assessment & Plan (05/30/2018 9:29 PM EDT): Due to ongoing elev CRP, severe pain and swelling around the joints of her hands and wrists and to lesser degree knees and feet I have suggested her to consider adding disease modifying anti- rheumatic medication such as Methotrexate or Arava. I provided her with a list of side effects for each of medication to read about and write her questions for discussion She has to postpone the decision about those medications until her partner gets settled after bone marrow transplant She is not ready to think about this yet. Today she requests that left shoulder injection to ease pain and stiffness to allow PT benefits. Encounters Date Type Department Care Team Description 5 12:11 PM EDT - 5 11:59 PM EDT Hospital Encounter [facility] [address] [place] [address] Kit Mcknight MD Discharge Disposition: Home or Self Care 5 Transcribe Orders [facility] [address] [place] [address] Kit Mcknight MD Urinary tract infection without hematuria, site unspecified (Primary Dx); Urinary incontinence, unspecified type 5 Transcribe Orders [facility] [address] [place] [address] Kit Mcknight MD 5 Transcribe Orders [facility] [address] [place] [address] Kit Mcknight MD Personal history of urinary infection (Primary Dx) 5 1:36 PM EDT Anesthesia Event [facility] Endoscopy Admitting Dept Virtual Department [address] [place] [id number] Jj Barnes MD 5 1:15 PM EDT - 5 1:30 PM EDT Surgery [facility] Endoscopy Admitting Dept Virtual Department [address] [place] [id number] Isaac Pereira MD ESOPHAGOGASTRODUODENOSCOPY 5 11:40 AM EDT - 5 2:20 PM EDT Hospital Encounter [facility] Endoscopy Admitting Dept Virtual Department [address] [place] [id number] Isaac Pereira MD Discharge Disposition: Home or Self Care 5 Procedure Pass [facility] Endoscopy Admitting Dept Virtual Department [address] [place] [id number] 5 5:33 PM EDT - 5 5:34 PM EDT Emergency [facility] Emergency [address] [place] [address] Discharge Disposition: Left Without Being Seen 5 Telephone [facility] Neurology [address] [place] [address] Tom Fernandez MD MIGRAINE / OZEMPIC CONCERNS 5 9:30 AM EDT Pre-Admission Testing Pre Procedure Evaluation [address] [place] [id number] Isaac Pereira MD 5 9:00 AM EDT Office Visit [facility] at [address] [place] [address] Nikia Timmons PA-C Acute cystitis without hematuria (Primary Dx) 5 11:29 AM EDT - 5 11:59 PM EDT Hospital Encounter [facility] [address] [place] [address] Dawna Dominique MD Discharge Disposition: Home or Self Care 5 Transcribe Orders [facility] [address] [place] [address] Dawna Dominique MD Diabetic polyneuropathy associated with type 2 diabetes mellitus (Primary Dx); Hyperlipidemia, unspecified hyperlipidemia type; Inadequately controlled diabetes mellitus 5 10:30 AM EDT - 5 11:59 PM EDT Hospital Encounter [facility] [address] [place] [address] Dawna Dominique MD Discharge Disposition: Home or Self Care 5 Transcribe Orders [facility] [address] [facility] [place] [address] Dawna Dominique MD Gout, unspecified cause, unspecified chronicity, unspecified site (Primary Dx) 5 1:00 PM EDT Office Visit [facility] [address] [place] [address] [address] Floor, [address] [place] [address] Yasmin Montague DNP Persistent atrial fibrillation (Primary Dx); Paroxysmal supraventricular tachycardia; Hyperlipidemia, unspecified hyperlipidemia type 5 4:30 PM EDT Office Visit [facility] Rheumatology [address] [place] [address] Jaylin Miller MD Inflammatory polyarthritis (Primary Dx); Primary osteoarthritis involving multiple joints; Fibromyalgia; Hyperuricemia; Diabetic polyneuropathy associated with type 2 diabetes mellitus; EDITH on CPAP; Cervical radiculopathy; Tremor; Chronic midline low back pain without sciatica; Class 2 severe obesity due to excess calories with serious comorbidity and body mass index (BMI) of 39.0 to 39.9 in adult 5 11:47 AM EDT - 5 11:59 PM EDT Hospital Encounter [facility] Laboratory [address] [place] [address] Jaylin Miller MD Discharge Disposition: Home or Self Care 5 Refill [employer] [facility] Rheumatology [address] [place] [address] Jaylin Miller MD Medication Refill from Last 3 Months Immunizations Immunization Administration Dates Next Due COVID-19 (Pre-01/10) Pfizer Vaccine, mRNA, PF ,06/14/2020 Family History Medical History Relation Comments No Known Problems Brother Cancer Father Skin cancer Father No Known Problems Maternal Aunt No Known Problems Maternal Grandfather No Known Problems Maternal Grandmother No Known Problems Maternal Uncle No Known Problems Mother No Known Problems Paternal Aunt No Known Problems Paternal Grandfather No Known Problems Paternal Grandmother No Known Problems Paternal Uncle No Known Problems Sister Infl. arthritis Unspecified Clotting disorder Neg Hx Collagen disease Neg Hx Depression Neg Hx Diabetes Neg Hx Dislocations Neg Hx Gout Neg Hx Osteoporosis Neg Hx Scoliosis Neg Hx Relation Status Comments Brother Father Maternal Aunt Maternal Grandfather Maternal Grandmother Maternal Uncle Mother Paternal Aunt Paternal Grandfather Paternal Grandmother Paternal Uncle Sister Unspecified Social History Tobacco Use Types Packs/Day Years Used Date Smoking Tobacco: Former Cigarettes 1 1 1987 Smokeless Tobacco: Never Tobacco Cessation:Counseling Given: Not Answered Alcohol Use Standard Drinks/Week Comments No 0 [...] Orientation Straight 06/06/2020 5: 50 PM EDT Last Filed Vital Signs Vital Sign Reading Time Taken Comments Blood Pressure 107/78 12/05/2024 2:00 PM EDT Pulse 100 12/05/2024 2:00 PM EDT Temperature 36.3 C (97.3 F) 12/05/2024 1:01 PM EDT Respiratory Rate 26 12/05/2024 2:00 PM EDT Oxygen Saturation 99% 12/05/2024 2:00 PM EDT Inhaled Oxygen Concentration - - Weight 96.6 kg (213 lb) 11/29/2024 3:33 PM EDT Height 157.5 cm (5' 2 ) 11/29/2024 3:33 PM EDT Body Mass Index 38.96 11/29/2024 3:33 PM EDT Plan of Treatment Upcoming Encounters Date Type Department Care Team (Late st Contact Info) Description 12/26/2024 1:00 PM EDT Ancillary Procedure [facility] [address] [facility] 3rd Floor, [address] [place] [address] Yasmin Montague DNP [address] [facility], [address] [place] [address] 01/21/2025 4:00 PM EST Office Visit [facility] Rheumatology [address] [place] [address] Jaylin Miller MD [address] [place] [address], [address] [place] [address] [email or web address] 03/29/2025 12:00 PM EST Office Visit [facility] Neurology [address] [place] [address] Tom Fernandez MD [address] [place] [address], [address] [place] [address] 04/12/2025 6:00 PM EST Appointment [facility] [address] [place] [address] Rufina Fairchild MD [address] [facility], [address] [place] [address] 05/15/2025 2:20 PM EST Ancillary Procedure [facility] [address] Floor, [address] [place] [address] Amrit Jeffries MD [address] [place] [phone] [email or web address] Health Maintenance Due Date Last Done Comments DEPRESSION SCREENING 1959 ZOSTER VACCINES (1 of 2) 1997 DIABETIC EYE EXAM 11/07/2019 Adult Td,Tdap Booster 06/09/2023 06/08/2013, 002 PNEUMOCOCCAL VACCINES (50+ years) (3 of 3 - PCV20 or PCV21) 09/25/2024 09/26/2019, 02/22/2006 INFLUENZA VACCINE (#1) 2024 , 12/31/2022, 12/25/2021, Additional history exists COVID-19 VACCINE ( season) 2024 12/26/2023, 12/31/2022, 07/11/2022, Additional history exists HEMOGLOBIN A1C 04/21/2025 10/19/2024, 05/20, 02/28/2024, Additional history exists BLOOD PRESSURE 05/24/2025 11/24/2024 LIPID PANEL 10/19/2025 10/19/2024, 05/20, 09/29/2023, Additional history exists CREATININE LEVEL 11/30/2025 11/30/2024, 03/2024, 09/26/2024, Additional history exists POTASSIUM LEVEL 11/30/2025 11/30/2024, 08/0 03/2024, 09/26/2024, Additional history exists OSTEOPOROSIS SCREENING INITIAL (ONE-TIME) Completed 12/01/2018 HEPATITIS C SCREENING Completed 09/17/2022 RSV VACCINE Completed 12/31/2022 SMOKING STATUS SCREENING (Once After 26 Yrs) Completed 12/05/2024 HEPATITIS A VACCINES Aged Out No long er eligible based on patient's age to complete this topic HIB VACCINES Aged Out No longer eligi ble based on patient's age to complete this topic MENINGOCOCCAL VACCINES (ACWY) Aged Out No longer eligible based on patient's age to complete this topic MENINGOCOCCAL VACCINES (B) Aged Out N o longer eligible based on patient's age to complete this topic Medical Devices Implanted Type Area Balance Bridge Inspector Device Identifier Shelf Expiration Date Model / Serial / Lot Staple Staple Bladder Procedures Procedure Name Priority Date/Time Associated Diagnosis Comments URINALYSIS WITH SEDIMENT Routine 025 12:13 PM EDT Personal history of urinary infection URINE CULTURE Routine 12/10/2024 12:13 PM EDT Personal history of urinary infection ME EGD ABLATE TUMOR POLYP/LESION W/DILATION& WIRE 12/05/2024 1:34 PM EDT Gastroesophagea l reflux disease without esophagitis Special Needs Wheelchair pleaseXareltoOzempic ME EDG TRANSORAL BIOPSY SINGLE/MULTIPLE 12/05/2024 1:34 PM EDT Gastroesophagea l reflux disease without esophagitis Special Needs Wheelchair pleaseXareltoOzempic ME ESOPHAGOGASTRODUODENOSCOPY TRANSORAL DIAGNOSTIC 12/05/2024 1:34 PM EDT Gastroesophagea l reflux disease without esophagitis Special Needs Wheelchair pleaseXareltoOzempic ENDOSCOPY PROCEDURE 12/05/2024 1:32 PM EDT ANATOMIC PATHOLOGY Routine 12/05/2024 12:00 AM EDT LIPASE STAT 11/30/2024 4:14 PM EDT MAGNESIUM STAT 11/30/2024 4:14 PM EDT LFTS (HEPATIC PANEL) STAT 11/30/2024 4:14 PM EDT BASIC METABOLIC PANEL STAT 11/30/2024 4:14 PM EDT CBC AND DIFFERENTIAL STAT 11/30/2024 4:14 PM EDT ECG 12-LEAD STAT 11/30/2024 3:58 PM EDT POCT GLUCOSE STAT 11/30/2024 3:55 PM EDT POCT GLUCOSE Routine 11/30/2024 3:54 PM EDT URINE CULTURE Routine 11/24/2024 10:12 AM EDT Acute cystitis without hematuria POCT URINE DIPSTICK Routine 11/24/2024 9:21 AM EDT HEMOGLOBIN A1C Routine 10/19/2024 11:31 AM EDT Diabetic polyneuropathy associated with type 2 diabetes mellitus Hyperlipidemia, unspecified hyperlipidemia type Inadequately controlled diabetes mellitus LIPID PANEL Routine 10/19/2024 11:31 AM EDT Diabetic polyneuropathy associated with type 2 diabetes mellitus Hyperlipidemia, unspecified hyperlipidemia type Inadequately controlled diabetes mellitus SEDIMENTATION RATE (ESR) Routine 025 11:31 AM EDT Fibromyalgia Inflammatory polyarthritis Hyperuricemia C-REACTIVE PROTEIN Routine 10/19/2024 11:31 AM EDT Fibromyalgia Inflammatory polyarthritis Hyperuricemia COMPREHENSIVE METABOLIC PANEL Routine 10/19/2024 11:31 AM EDT Fibromyalgia Inflammatory polyarthritis Hyperuricemia CBC AND DIFFERENTIAL Routine 10/19/2024 11:31 AM EDT Fibromyalgia Inflammatory polyarthritis Hyperuricemia URIC ACID Routine 10/19/2024 11:31 AM EDT Hyperuricemia URIC ACID Routine 09/26/2024 10:40 AM EDT Gout, unspecified cause, unspecified chronicity, unspecified site COMPREHENSIVE METABOLIC PANEL Routine 09/26/2024 10:40 AM EDT Gout, unspecified cause, unspecified chronicity, unspecified site SEDIMENTATION RATE (ESR) Routine 025 12:25 PM EDT Fibromyalgia Inflammatory polyarthritis Hyperuricemia C-REACTIVE PROTEIN Routine 09/17/2024 12:25 PM EDT Fibromyalgia Inflammatory polyarthritis Hyperuricemia COMPREHENSIVE METABOLIC PANEL Routine 09/17/2024 12:25 PM EDT Fibromyalgia Inflammatory polyarthritis Hyperuricemia CBC AND DIFFERENTIAL Routine 09/17/2024 12:25 PM EDT Fibromyalgia Inflammatory polyarthritis Hyperuricemia URIC ACID Routine 09/17/2024 12:25 PM EDT Hyperuricemia HEPATITIS C ANTIBODY, QUALITATIVE Routine 09/17/2022 2:09 PM EDT Need for hepatitis C screening test BD DXA AXIAL (SPINE) WITH HIP Routine 12/01/2018 3:00 PM EDT Post-menopausal from Last 3 Months or Most Recently Relevant to Health Maintenance Results * (ABNORMAL) Urine Culture (12/10/2024 12:13 PM EDT) Only the most recent of2 resultswithin the time period is included. Special Requests None 12/10/2024 12:13 PM EDT [facility] Urine Culture >100,000 colony forming units per mL ESCHERICHIA COLI(A) 12/11/2024 1:10 PM EDT [facility] Urine (Urine) 12/10/2024 12: 13 [...] coli Cefazolin(urine) REBECA METHOD <=1: Susceptible Comment: Kit Mcknight MD MICROBIOLOGY - GENERAL ORDERABL ES Final Result Performing Organization Address City/[facility]/ZIP Co de Phone Number [address] [address] * (ABNORMAL) URINALYSIS WITH SEDIMENT (12/10/2024 12:13 PM EDT) WBC 21-49(A) NONE SEEN /hpf [facility] RBC 0-2(A) NONE SEEN /hpf [facility] URINE EPITHELIAL 5-10(A) NONE SEEN [facility] MUCUS Trace(A) NONE SEEN /hpf [facility] BACTERIA 3+(A) NONE SEEN /hpf [facility] COLOR Yellow Yellow [facility] CLARITY Clear [facility] GLUCOSE Negative Negative [facility] BILI Negative Negative [facility] KETONES Negative Negative [facility] SPECIFIC GRAVITY 1.025 1.005 - 1.030 [facility] BLOOD Negative Negative [facility] PH 6.0 5.0 - 8.0 [facility] Protein-UA Negative Negative [facility] NITRITE Positive(A) Negative [facility] Leukocyte esterase, ur 1+(A) Negative [facility] Urine (Urine) 12/10/2024 12: 13 PM EDT 12/10/2024 12:14 PM EDT Kit Mcknight MD URINE ORDERABLES Final Result Performing Organization Address City/[facility]/ZIP Co de Phone Number [address] [address] * ENDOSCOPY PROCEDURE (12/05/2024 1:32 PM EDT) Narrative Transcriptions Isaac Pereira MD - 12/05/2024 1:32 PM EDT [facility] Patient Name: Kerwin Barakat Attending MD:: ISAAC PEREIRA MD, , Procedure Date: 12/05/2024 1:32 PM Date of : 1945 Age: 79 Admit Type: Outpatient Gender: Female Room: [place] [address] Referring MD: RUFINA FAIRCHILD Exam Type: Upper GI endoscopy Indications: Heartburn Medications: Monitored Anesthesia Care Procedure: Informed consent was obtained from the patientafter discussion of the indications, limitations, alternatives, benefits, and risks of the procedure. Risks specifically discussed include but are not limited to medication reactions, missed lesions, bleeding, perforation, or the need for emergent surgery. Throughout the procedure, the patient's blood pressure, pulse, end-tidal CO2, and oxygensaturations were monitored continuously. The Endoscope was introduced through the mouth, and advanced to the second part of duodenum. The upperGI endoscopy was accomplished without difficulty. The patient tolerated the procedure well. Complications: No immediate complications. Estimated blood loss: Minimal. Findings: The examined duodenum was normal. Localized mildly erythematous mucosa withoutbleeding was found in the gastric antrum. Biopsies weretaken with a cold forceps for histology. The exam of the stomach was otherwise normal. The examined esophagus was normal. Impression: - Normal examined duodenum. - Erythematous mucosa in the antrum. Biopsied. - Normal esophagus. Recommendation: - Await pathology results. - Discharge patient to home. - Resume Xarelto (rivaroxaban) at prior dose today. ISAAC PEREIRA MD, 12/05/2024 1:47:38 PM This report has been signed electronically. Number of Addenda: 0 Note Initiated On: 12/05/2024 1:32 PM Procedure Code(s): --- Professional --- 69297, Esophagogastroduodenoscopy, flexible, transoral; with biopsy, single or multiple --- Technical --- 30327, Esophagogastroduodenoscopy, flexible, transoral; with biopsy, single or multiple Diagnosis Code(s): --- Professional --- K31.89, Other diseases of stomach and duodenum R12, Heartburn --- Technical --- K31.89, Other diseases of stomach and duodenum R12, Heartburn CPT copyright 2021 [employer]. All rights reserved. The codes documented in this report are preliminary and upon floor attendant reviewmay be revised to meet current compliance requirements. Procedure Date: 12/05/2024 1:32:[address] [place] [address] Rufina Fairchild MD GI PROCEDURE ORDERABLES Edit ed Result - Final * Anatomic Pathology (12/05/2024 12:00 AM EDT) 12/05/2024 12/05/2024 2:5 3 PM EDT Narrative SEE NARRATIVE - 12/06/2024 3:57 PM EDT [address] [address] Core Blower Operator: Justin Dodson MD Surgical Pathology Report FINAL PATHOLOGIC DIAGNOSIS: STOMACH, BIOPSY: Focal mild inactive chronic gastritis. Note: Immunohistochemical stains for H. pylori are performed on the gastric biopsies and DO NOT DEMONSTRATE organisms with the morphologic characteristics of Helicobacter. Electronically Signed Out By Anu Shearer MD By his/her signature above, the pathologist listed as making the Final Diagnosis certifies that he/she has personally reviewed this case and confirmed or corrected the diagnosis. CLINICAL HISTORY Gastroesophageal reflux disease without esophagitis [K21.9] SPECIMENS SUBMITTED: A: STOMACH, BIOPSY GROSS DESCRIPTION STOMACH, BIOPSY: Received in formalin are 2 irregular siddiqi-pink soft tissue fragments measuring on average 0.2 x 0.2 x 0.1 cm which are submitted in toto in a single cassette labeled A1. Grossed by: KAMERON De Jesus PA([facility]) [id number] 12/05/2024 Grossing Staff: [id number] One or more of the reagents used in immunohistochemical testing in this case may not have been cleared or approved by the U.S. Food and Drug Administration (FDA). The FDA has determined that such clearance or approval is not necessary. These tests are used for clinical purposes. This should not be regarded as investigational or for research. These reagents' performance characteristics have been determined by the [facility]. This laboratory is certified under the Clinical Laboratory Improvement Amendments of 1988 (CLIA-88) as qualified to perform high complexity clinical laboratory testing. Immunohistochemistry is performed on formalin-fixed paraffin-embedded sections (unless otherwise specified) and on a Benchmark Ultra immunostainer which utilizes a proprietary polymer detection system. Positive, negative and internal controls, when present, stain appropriately. Patient Name: KERWIN BARAKAT : 1945 (Age: 79) Sex: F Institution: [facility] Location: [facility] Date of Operation: 12/05/2024 Date of Reported: 12/06/2024 15:57 Results To: Isaac Pereira MD, BS, MS Dawna Dominique MD us Isaac Pereira MD PATHOLOGY ORDERABLES Final Resul t SEE NARRATIVE * (ABNORMAL) LFTs (hepatic panel) (11/30/2024 4:14 PM EDT) ALKALINE PHOSPHATASE 100 39 - 117 U/L [facility] TOTAL BILIRUBIN <0.2 0.0 - 1.2 mg/dL [facility] DIRECT BILIRUBIN <0.1 0.0 - 0.2 mg/dL [facility] Bilirubin (Indirect) NOT CALCULATED 0 - 1.5 mg/dL [facility] AST 47(H) 0 - 37 U/L [facility] ALT 54(H) 0 - 40 U/L [facility] TOTAL PROTEIN 7.2 6.5 - 8.0 g/dL [facility] ALBUMIN 4.2 3.9 - 4.8 g/dL [facility] GLOBULIN 3.0 1 - 4.8 g/dL [facility] A/G Ratio 1.40 1.00 - 4.80 RATIO [facility] Blood 11/30/2024 4:14 PM EDT 11/30/2024 4:19 PM EDT us Dane Levine MD LAB BLOOD ORDERABLES Final Resu lt [facility] [address] [place] [address] * (ABNORMAL) CBC and differential (11/30/2024 4:14 PM EDT) Only the most recent of3 resultswithin the time period is included. WBC 6.98 4.00 - 11.00 K/uL [facility] RBC 3.68(L) 4.00 - 5.20 M/uL [facility] HGB 11.7(L) 12.0 - 16.0 g/dL [facility] HCT 35.7(L) 36.0 - 46.0 % [facility] PLT 247 150 - 450 K/uL [facility] MCV 97.0 80.0 - 100.0 fL [facility] MCH 31.8(H) 27.0 - 31.0 pg [facility] MCHC 32.8 32.0 - 36.0 g/dL [facility] RDW 13.6 11.5 - 14.5 % [facility] MPV 9.5 8.4 - 12.0 fL [facility] NRBC 0.00 0.00 /100 WBCs [facility] ABSOLUTE NRBC 0.00 0.00 K/uL [facility] DIFF METHOD Auto [facility] NEUTS 45.8(L) 48.0 - 76.0 % [facility] LYMPHS 44.8(H) 18.0 - 41.0 % [facility] MONOS 7.0 4.0 - 11.0 % [facility] EOS 1.4 0.0 - 5.0 % [facility] BASOS 0.3 0.0 - 1.5 % [facility] Granulocytes, immature (%) 0.7 0.0 - 0.9 % [facility] ABSOLUTE NEUTS 3.19 1.92 - 7.60 K/uL [facility] ABSOLUTE LYMPHS 3.13 0.72 - 4.10 K/uL [facility] ABSOLUTE MONOS 0.49 0.16 - 1.10 K/uL [facility] ABSOLUTE EOS 0.10 0.00 - 0.50 K/uL [facility] ABSOLUTE BASOS 0.02 0.00 - 0.15 K/uL [facility] Granulocytes, immature 0.05 0.00 - 0.09 K/uL [facility] Blood 11/30/2024 4:14 PM EDT 11/30/2024 4:19 PM EDT us Dane Levine MD LAB BLOOD ORDERABLES Final Resu lt Performing Organization Address City/[facility]/ZIP Co de Phone Number [address] [address] * Magnesium (11/30/2024 4:14 PM EDT) MAGNESIUM 1.7 1.6 - 2.6 mg/dL [facility] Blood 11/30/2024 4:14 PM EDT 11/30/2024 4:19 PM EDT Dane Levine MD LAB BLOOD ORDERABLES Final Resu lt Performing Organization Address City/[facility]/ZIP Co de Phone Number [address] [address] * Lipase (11/30/2024 4:14 PM EDT) LIPASE 63 16 - 63 U/L [facility] Blood 11/30/2024 4:14 PM EDT 11/30/2024 4:19 PM EDT us Dane Levine MD LAB BLOOD ORDERABLES Final Resu lt Performing Organization Address [facility]/ZIP Co de Phone Number [address] [address] * (ABNORMAL) Basic metabolic panel (11/30/2024 4:14 PM EDT) Pathologist [facility] SODIUM 141 133 - 146 mmol/L [facility] CHLORIDE 103 96 - 108 mmol/L [facility] POTASSIUM 4.1 3.3 - 5.1 mmol/L [facility] CO2 26 21 - 35 mmol/L [facility] BUN 13 6 - 19 mg/dL [facility] CREATININE 0.70 0.5 - 1.5 mg/dL [facility] GLUCOSE 158(H) 70 - 99 mg/dL [facility] CALCIUM 10.0 8.4 - 10.3 mg/dL [facility] EGFR 89 >59 mL/min/1.7 3m2 [facility] Comment:Estimated glomerular filtration rate calculated using the CKD-EPI refit equation. ANION GAP 16 10 - 20 mmol/L [facility] Blood 11/30/2024 4:14 PM EDT 11/30/2024 4:19 PM EDT Dane Levine MD LAB BLOOD ORDERABLES Final Resu lt Performing Organization Address [facility] Co de Phone Number [address] [address] * ECG 12-LEAD (11/30/2024 3:58 PM EDT) Ventricular Rate EKG/MIN 92 BPM [facility] Atrial Rate 92 BPM [facility] ME Interval 128 ms [facility] QRS Duration 68 ms [facility] QT Interval 340 ms [facility] QTC Interval 420 ms [facility] P [place] 72 degrees [facility] R Wave [place] 15 degrees [facility] T Wave [place] 27 degrees [facility] 11/30/2024 3:58 PM EDT 12/01/2024 11:22 AM EDT Narrative [facility] - 12/01/2024 11:22 AM EDT Normal sinus rhythm Cannot rule out Anterior infarct , age undetermined Abnormal ECG When compared with ECG of 31-Jul-2024 11:07, Premature atrial complexes are no longer Present Confirmed by Juan Hobbs ([id number]) on 12/01/2024 11:22:31 AM Dane Levine MD ECG ORDERABLES Final Result [facility] * (ABNORMAL) POCT Glucose (11/30/2024 3:55 PM EDT) Glucose 164(A) 70 - 100 mg/dL 11/30/2024 3:55 PM EDT us Dane Levine MD POINT OF CARE TEST ORDERABLES F inal Result * (ABNORMAL) POCT Glucose (11/30/2024 3:54 PM EDT) Glucose, POCT 164(H) 70 - 100 mg/dL [facility] 11/30/2024 3:54 PM EDT 12/01/2024 4:21 AM EDT Unknown Unknown POINT OF CARE TEST ORDERABLES Final Result [address] [address] * (ABNORMAL) POCT Urine Dipstick (Automated) (11/24/2024 9:21 AM EDT) COLOR Yellow [facility] TURBIDITY Clear [facility] GLUCOSE, POCT Negative Negative [facility] KETONE, POCT Trace(A) Negative [facility] OCCULT BLOOD, POCT Negative Negative [facility] SPECIFIC GRAVITY, POCT 1.020 1.001 - 1.030 [facility] ALBUMIN, POCT Negative Negative [facility] Bili Negative Negative [facility] Urobilinogen 0.2 <1.0 [facility] [place] NITRITE, POCT Positive(A) Negative [facility] [place] PH, POCT 5.5 5.0 - 8.0 [facility] [place] WBC SCREEN, POCT 1+(A) Negative [facility]AL[facility] [employer] COORDINATOR [facility] [place] 11/24/2024 9:21 AM EDT 11/24/2024 9:23 AM EDT us Nikia Timmons PA-C POINT OF CARE TEST ORDERABLE S Final Result [facility] [address] [address], [facility] [phone] * Comprehensive metabolic panel (10/19/2024 11:31 AM EDT) Only the most recent of3 resultswithin the time period is included. SODIUM 138 133 - 146 mmol/L [facility] POTASSIUM 4.7 3.3 - 5.1 mmol/L [facility] CHLORIDE 100 96 - 108 mmol/L [facility] CO2 25 21 - 35 mmol/L [facility] BUN 9 6 - 19 mg/dL [facility] CREATININE 0.50 0.5 - 1.5 mg/dL [facility] GLUCOSE 96 70 - 99 mg/dL [facility] ALBUMIN 4.2 3.9 - 4.8 g/dL [facility] TOTAL PROTEIN 7.3 6.5 - 8.0 g/dL [facility] CALCIUM 10.1 8.4 - 10.3 mg/dL [facility] ALKALINE PHOSPHATASE 90 39 - 117 U/L [facility] TOTAL BILIRUBIN 0.3 0.0 - 1.2 mg/dL [facility] AST 30 0 - 37 U/L [facility] ALT 25 0 - 40 U/L [facility] GLOBULIN 3.1 1 - 4.8 g/dL [facility] EGFR 97 >59 mL/min/1.7 3m2 [facility] Comment:Estimated glomerular filtration rate calculated using the CKD-EPI refit equation. ANION GAP 18 10 - 20 mmol/L [facility] Blood 10/19/2024 11:3 1 AM EDT 10/19/2024 11:36 AM EDT us Jaylin Miller MD LAB BLOOD ORDERABLES Fin al Result Performing Organization Address City/[facility]/ZIP Co de Phone Number [address] [address] * Sedimentation rate (ESR) (10/19/2024 11:31 AM EDT) Only the most recent of2 resultswithin the time period is included. ESR 27 0 - 30 mm/h [facility] Blood 10/19/2024 11:3 1 AM EDT 10/19/2024 11:36 AM EDT us Jaylin Miller MD LAB BLOOD ORDERABLES Fin al Result Performing Organization Address [facility] Co de Phone Number [address] [address] * (ABNORMAL) C-Reactive Protein (10/19/2024 11:31 AM EDT) Only the most recent of2 resultswithin the time period is included. C REACTIVE PROTEIN 11.8(H) 0.0 - 4.0 mg/L [facility] Blood 10/19/2024 11:3 1 AM EDT 10/19/2024 11:36 AM EDT us Jaylin Miller MD LAB BLOOD ORDERABLES Fin al Result Performing Organization Address [facility] Co de Phone Number [address] [address] * Uric acid (10/19/2024 11:31 AM EDT) Only the most recent of3 resultswithin the time period is included. URIC ACID 5.3 2.4 - 7.0 mg/dL [facility] Blood 10/19/2024 11:3 1 AM EDT 10/19/2024 11:36 AM EDT us Jaylin Miller MD LAB BLOOD ORDERABLES Fin al Result Performing Organization Address City/[facility]/ZIP Co de Phone Number [address] [address] * Hemoglobin A1c (10/19/2024 11:31 AM EDT) HEMOGLOBIN A1C 5.6 4.3 - 5.8 % [facility] Blood 10/19/2024 11:3 1 AM EDT 10/19/2024 11:37 AM EDT us Dawna Dominique MD LAB BLOOD ORDERABLES Fi nal Result Performing Organization Address [facility] Co de Phone Number [address] [address] * (ABNORMAL) Lipid panel (10/19/2024 11:31 AM EDT) HDL 56 mg/dL [facility] Comment: Interpretation <40 mg/dL: Low HDL cholesterol (major risk factor for CHD) Greater than or equal to 60 mg/dL: High HDL cholesterol ( negative risk factor for CHD) HDL - cholesterol is affected by a number of factors, e.g. smoking, excerise, hormones, sex and age. CHOLESTEROL 177 0 - 240 mg/dL [facility] TRIGLYCERIDES 233(H) 30 - 160 mg/dL [facility] LDL 74 50 - 129 mg/dL [facility] Comment: LDL levels in terms of risk for coronary heart disease: <100 mg/dL: Optimal 100-129 mg/dL: Near or above optimal 130-159 mg/dL: Borderline high 160-189 mg/dL: High >190 mg/dL: Very High CARDIAC RISK RATIO 3.2(L) 3.3 - 4.4 [facility] Blood 10/19/2024 11:3 1 AM EDT 10/19/2024 11:36 AM EDT us Dawna Dominique MD LAB BLOOD ORDERABLES Fi nal Result [address] [address] * Hepatitis C antibody, qualitative (09/17/2022 2:09 PM EDT) HCV NON-REACTIV E NON-REACTI VE [facility] Blood 09/17/2022 2:09 PM EDT 09/17/2022 2:14 PM EDT Carmen Pearson PA-C LAB BLOOD ORDERABLES Final Resu lt Performing Organization Address City/[facility]/ZIP Co de Phone Number [address] [address] * BD DXA AXIAL (SPINE) WITH HIP [...] deficiency, bone density screening POS - [id number] Rufina Fairchild MD IMG BD BONE DENSITY DEXA Fin al Result from Last 3 Months or Most Recently Relevant to Health Maintenance Insurance MEDICARE PART A & B [facility] MEDICARE SUPPLEMENT MEDICARE PART A & B MEDICARE SUPPLEMENT MEDICARE PART A & B MEDICARE SUPPLEMENT MEDICARE PART A & B [facility] MEDICARE SUPPLEMENT MEDICARE PART A & B [facility] [place] [address] MEDICARE PART A & B [facility] MEDICARE SUPPLEMENT MEDICARE PART A & B MEDICARE SUPPLEMENT MEDICARE PART A & B Member Subscriber Plan / Payer (Ef fective 1999-) Name:Kerwin Barakat Member ID:[id number] Relation to Subscriber:Self Name:Kerwin Barakat Subscriber ID:[id number] Payer ID:[id number] Group ID:Not on file Type:Medicare Address: [employer] [address] [place] [id number] [place] [address] MEDICARE SUPPLEMENT MEDICARE PART A & B [facility] MEDICARE SUPPLEMENT Care Teams Eastern Philosophy Professor Relationship Specialty Start Date End Date Dawna Dominique MD [address] [place] [id number] PCP - General Family Medicine 03/16/17 Additional Source Comments The information contained in this document represents components of the legal health record. It is not the complete legal health record.[facility]
--- OUTSIDE RECORDS SUMMARY | 2024-12-12 14:42 | XMS_ITS | Encounter Summary ---
Author Organization [facility] Address [address] [place] [address] Phone Care Team Providers Care Overseamer Name Role Phone Dawna Dominique MD Primary Care Provider Encounter Details Date Type Department Care Team (Latest Contact Info) Description 08/18/2023 Ancillary Orders [facility] Rheumatology [address] [place] [address] Jaylin Miller MD [address] [facility], [address] [place] [address] [email or web address] Inflammatory polyarthritis (Primary Dx); Primary osteoarthritis involving multiple joints; Fibromyalgia; Hyperuricemia; Cervical radiculopathy; EDITH on CPAP; Diabetic polyneuropathy associated with type 2 diabetes mellitus; Class 3 obesity due to excess calories with serious comorbidity and body mass index (BMI) of 40.0 to 44.9 in adult; Tremor Social History Tobacco Use Types Packs/Day Years [...] Description 12/26/2024 1:00 PM EDT Ancillary Procedure [facility] [address] [place] [address] [address] Floor, [address] [place] [address] Yasmin Montague DNP [address] [place] [address], [address] [address] 01/21/2025 4:00 PM EST Office Visit [facility] Rheumatology [address] [place] [address] [place] [address] Jaylin Miller MD [address] [place] [address], [address] [place] [address] [email or web address] 03/29/2025 12:00 PM EST Office Visit [facility] Neurology [address] [place] [address] [place] [address] Tom Fernandez MD [address] [place] [address], [address] [place] [address] 04/12/2025 6:00 PM EST Appointment [facility], Bone D[facility] [address] [place] [address] Lucia Fairchild MD [address] [facility], [address] [place] [address] 05/15/2025 2:20 PM EST Ancillary Procedure [facility] [address] [place] [address] Amrit Jeffries MD [address] [place] [address] documented as of this encounter Visit Diagnoses Diagnosis Inflammatory polyarthritis- Primary Unspecified inflammatory polyarthropathy Primary osteoarthritis involving multiple joints Fibromyalgia Unspecified myalgia and myositis Hyperuricemia Other abnormal blood chemistry Cervical radiculopathy Brachial neuritis or radiculitis nos EDITH on CPAP Diabetic polyneuropathy associated with type 2 diabetes mellitus Class 3 obesity due to excess calories with serious comorbidity and body mass index (BMI) of 40.0 to 44.9 in adult Tremor Abnormal involuntary movements documented in this encounter Care Teams Overseamer Relationship Specialty Start Date End Date Dawna Dominique MD [address] [place] [id number] PCP - General Family Medicine 03/16/17 documented as of this encounter Additional Source Comments The information contained in this document represents components of the legal health record. It is not the complete legal health record.[facility]
--- OUTSIDE RECORDS SUMMARY | 2024-12-12 14:42 | XMS_ITS | Encounter Summary ---
Author Organization [facility] Address [facility] [address] [place] [address] Phone Care Team Providers Care Sausage Stringer Name Role Phone Dawna Dominique MD Primary Care Provider Reason for Referral * MRI/CAT Scan - Closed Specialty Diagnoses / Procedures Referred By Contac t Referred To Contact Radiology Diagnoses Spinal stenosis, unspecified spinal region Procedures MRI Lumbar Spine Adebayo Luis MD Phone: tel: fax: Referral ID Status Reason Start Date Expiration Date Visits Re quested Visits Authorized [id number] Closed 04/12/2017 04/12/2018 1 1 Encounter Details Date Type Department Care Team (Latest Contact Info) Description 04/12/2017 Ancillary Orders Virtual Department [address] [place] [address] Adebayo Luis MD [address] [place] [phone] Spinal stenosis, unspecified spinal region; Primary osteoarthritis of hip, unspecified laterality Social History Tobacco Use Types Packs/Day Years [...] Description 12/26/2024 1:00 PM EDT Ancillary Procedure [facility] [address] 3rd [facility], [address] [place] [address] Yasmin Montague DNP 22 [facility], [address] [place] [address] 01/21/2025 4:00 PM EST Office Visit [facility] Rheumatology 22 [place] [address] Jaylin Miller MD [address] [place] [address], [address] [place] [address] [email or web address] 03/29/2025 12:00 PM EST Office Visit [facility] Neurology 22 [place] [address] Tom Fernandez MD 22 [facility], 2nd [place] [address] 04/12/2025 6:00 PM EST Appointment [facility], Bone Density - [facility] [address] [place] [address] Lucia Fairchild MD [address] [place] [address], [facility] 8 [place] [address] 05/15/2025 2:20 PM EST Ancillary Procedure [facility] [address] [place] 3rd [facility], [address] [place] [address] Amrit Jeffries MD [address] [place] [address] [email or web address] Scheduled Orders Name Type Priority Associated Diagnoses Orde r Schedule MRI Lumbar Spine Imaging Routine Spinal stenosis, unspecified spinal region Expected: 04/12/2017, Expires: 04/12/2018 documented as of this encounter Results * XR HIP 2 VW RIGHT PLUS PELVIS (04/22/2017 11:21 AM EST) Anatomical Region Laterality Modality Hip, Pelvis Radiographic Larissa ging 04/22/2017 12:4 1 PM EST Impressions 04/22/2017 12:43 PM EST Mild osteoarthritis in the right hip POS [id number] Narrative 04/22/2017 12:43 PM EST AP pelvis and coned right hip, four views total. No comparison. No evidence of trauma, tumor, infection, avascular necrosis nor signs of impingement. No soft tissue calcifications. Mild superior joint space narrowing and very minimal subchondral sclerosis in the superior acetabulum on the right. No significant arthritic changes on the left. SI joints and symphysis pubis seem intact without significant arthritic changes. Numerous surgical javed and phleboliths in the pelvis. No suspicious calcifications. Procedure Note Amrit Gray MD - 04/22/2017 AP pelvis and coned right hip, four views total. No comparison. No evidence of trauma, tumor, infection, avascular necrosis nor signs ofimpingement. No soft tissue calcifications. Mild superior joint space narrowing and very minimal subchondral sclerosisin the superior acetabulum on the right. No significant arthritic changeson the left. SI joints and symphysis pubis seem intact without significant arthriticchanges. Numerous surgical javed and phleboliths in the pelvis. No suspiciouscalcifications. IMPRESSION: Mild osteoarthritis in the right hip POS [id number] Adebayo Luis MD IMG XR PELVIS Final Resul t documented in this encounter Visit Diagnoses Diagnosis Spinal stenosis, unspecified spinal region Primary osteoarthritis of hip, unspecified laterality Primary osteoarthritis of hip, unspecified laterality documented in this encounter Care Teams Sausage Stringer Relationship Specialty Start Date End Date Dawna Dominique MD [address] [place] [address] PCP - General Family Medicine 03/16/17 documented as of this encounter Additional Source Comments The information contained in this document represents components of the legal health record. It is not the complete legal health record.[facility]
--- OUTSIDE RECORDS SUMMARY | 2024-12-12 14:42 | XMS_ITS | Clinical Summary ---
Author Organization [facility] [place] [address] Care Team Providers Care Extracorporeal Circulation Specialist Name Role Phone Unavailable Primary Care Provider Unavailabl e Social History Tobacco Use Types Packs/Day Years Used Date Smoking Tobacco: Never Assessed Comments Unknown Sex and Gender Information Value Date Recorded Sex Assigned at Not on file Legal Sex Female 11:39 AM EST Gender Identity Not on file Sexual Orientation Not on file Plan of Treatment Upcoming Encounters Date Type Department Care Team (Late st Contact Info) Description 12/31/2024 1:30 PM EDT Appointment [facility] [address] [phone] Health Maintenance Due Date Last Done Comments Diabetes: Annual Foot Exam 1957 Diabetes: Annual Retina Eye Exam 1955 Zoster Vaccines (1 of 2) 1997 Falls Risk Assessment 02/16/2022 Medicare Annual Wellness Visit 02/16/2022 Social Influencers of Health Screening 02/16/2022 DTaP,Tdap,and Td Vaccines (3 - Td or Tdap) 06/09/2023 06/08/2013, 02/05/2002 Depression Screening 03/21/2024 Pneumococcal Vaccine: 50+ Years (3 of 3 - PCV20 or PCV21) 09/25/2024 09/26/2019, 02/22/2006 COVID-19 Vaccine ( season) 2024 12/26/2023, 12/31/2022, 06/17/2021, Additional history exists Influenza Vaccine (#1) 2024 , 12/31/2022, 12/25/2021, Additional history exists Diabetes: Annual Urine Albumin-Creatinine Ratio (uACR) 12/10/2024 10/03/2023, 08/16/2023, 06/30/2022, Additional history exists Diabetes: Blood Sugar Control Test (HGBA1C) 12/10/2024 Diabetes: Annual GFR (Glomerular Filtration Rate) 10/19/2025 10/19/2024, 09/26/2024, 09/17/2024, Additional history exists Osteoporosis Screening (Bone Density Screening) 12/01/2028 12/01/2018, 03/29/2003 Cholesterol Screening (Lipid Panel) 10/19/2029 10/19/2024 Hepatitis C Screening Completed 09/17/2022 RSV Immunization Adult Patients Completed 12/31/2022 HIB Vaccines Aged Out No longer eligi ble based on patient's age to complete this topic HPV Vaccines Aged Out No longer eligi ble based on patient's age to complete this topic Hepatitis A Vaccines Aged Out No long er eligible based on patient's age to complete this topic Hepatitis B Vaccines Aged Out No long er eligible based on patient's age to complete this topic IPV Vaccines Aged Out No longer eligi ble based on patient's age to complete this topic MMR Vaccines Aged Out No longer eligi ble based on patient's age to complete this topic Meningococcal ACWY Vaccine Aged Out N o longer eligible based on patient's age to complete this topic Meningococcal B Vaccine Aged Out No l onger eligible based on patient's age to complete this topic RSV Immunization Patients Under 20 months Aged Out No longer eligible based on patient's age to complete this topic Varicella Vaccines Aged Out No longer eligible based on patient's age to complete this topic Insurance SHAAN GIPSON [id number] MEDICARE
--- OUTSIDE RECORDS SUMMARY | 2024-12-12 14:42 | XMS_ITS | Encounter Summary ---
Author Organization [facility] Address [address] [place] [address] Phone Care Team Providers Care Kindergarten Teacher Name Role Phone Dawna Dominique MD Primary Care Provider Encounter Details Date Type Department Care Team (Late st Contact Info) Description 04/23/2024 Procedure Pass [facility], [address] [place] [address] Social History Tobacco Use Types Packs/Day Years Used Date Smoking Tobacco: Former Cigarettes 1 1 962 - 1987 Smokeless Tobacco: Never [...] Description 12/26/2024 1:00 PM EDT Ancillary Procedure [facility] [address] [place] [address] 3rd Floor, [address] [place] [address] Yasmin Montague DNP 22 [facility], [address] [place] [address] 01/21/2025 4:00 PM EST Office Visit [facility] Rheumatology 22 [place] [address] Jaylin Miller MD [address] [place] [address], [address] [place] [address] [email or web address] 03/29/2025 12:00 PM EST Office Visit [facility] Neurology 22 [place] [address] Tom Fernandez MD 22 [facility], 2nd [place] [address] 04/12/2025 6:00 PM EST Appointment [facility], Bone Density - [facility] 30 [place] [address] Lucia Fairchild MD 33 [facility], [address] [place] [address] 05/15/2025 2:20 PM EST Ancillary Procedure [facility] 22 [facility] 3rd Floor, [address] [place] [address] Amrit Jeffries MD [address] [place] [address] documented as of this encounter Visit Diagnoses Not on filedocumented in this encounter Care Teams Kindergarten Teacher Relationship Specialty Start Date End Date Dawna Dominique MD [address] [place] [address] PCP - General Family Medicine 03/16/17 documented as of this encounter Additional Source Comments The information contained in this document represents components of the legal health record. It is not the complete legal health record.[facility]
--- OUTSIDE RECORDS SUMMARY | 2024-12-12 14:42 | XMS_ITS | Encounter Summary ---
Author Organization [facility] Address [address] [place] [address] Phone Care Team Providers Care Student Dean Name Role Phone Dawna Dominique MD Primary Care Provider Encounter Details Date Type Department Care Team (Latest Contact Info) Description 08/26/2023 Transcribe Orders Virtual Department 30 [place] [address] Carmen Pearson PA-C [address] [place] [address] [email or web address] Fatty liver (Primary Dx) Social History Tobacco Use Types [...] Description 12/26/2024 1:00 PM EDT Ancillary Procedure [facility] [address] [place] [address] 3rd Floor, [address] [place] [address] Yasmin Montague DNP [address] [place] [address], [address] [address] 01/21/2025 4:00 PM EST Office Visit [facility] Rheumatology [address] [place] [address] Jaylin Miller MD [address] [place] [address], [address] [address] [email or web address] 03/29/2025 12:00 PM EST Office Visit [facility] Neurology [address] [place] [address] [place] [address] Tom Fernandez MD [address] [place] [address], 2nd [place] [address] 04/12/2025 6:00 PM EST Appointment [facility], Bone [facility] [place] 30 [place] [address] Lucia Fairchild MD 33 [facility], [address] [place] [address] [email or web address] 05/15/2025 2:20 PM EST Ancillary Procedure [facility] 22 [facility] 3rd Floor, [address] [place] [address] Amrit Jeffries MD [address] [place] [address] [email or web address] documented as of this encounter Visit Diagnoses Diagnosis Fatty liver- Primary Other chronic nonalcoholic liver disease documented in this encounter Care Teams Student Dean Relationship Specialty Start Date End Date Dawna Dominique MD [address] [place] [address] PCP - General Family Medicine 03/16/17 documented as of this encounter Additional Source Comments The information contained in this document represents components of the legal health record. It is not the complete legal health record.[facility]
--- OUTSIDE RECORDS SUMMARY | 2024-12-12 14:42 | XMS_ITS | Encounter Summary ---
Author Organization [facility] Address [address] [place] [address] Phone Care Team Providers Care Education Director Name Role Phone Dawna Dominique MD Primary Care Provider Reason for Referral * MRI/CAT Scan - Closed Specialty Diagnoses / Procedures Referred By Catie arteaga Referred To Contact Procedures MRI Spine (Bone) Outside (No Interpretation) System, Provider Not In, [facility] [address] [address] Referral ID Status Reason Start Date Expiration Date Visits Re quested Visits Authorized [id number] Closed 04/18/2017 04/18/2018 1 1 Encounter Details Date Type Department Care Team (Late st Contact Info) Description 04/18/2017 Ancillary Orders [facility],Outside Imaging 30 [place] [address] System, Provider Not In, [facility] [address] [address] Social History Tobacco Use Types Packs/Day Years [...] Description 12/26/2024 1:00 PM EDT Ancillary Procedure [facility] [address] 3rd Floor, [address] [place] [address] Yasmin Montague DNP 22 [facility], [address] [place] [address] 01/21/2025 4:00 PM EST Office Visit [facility] Rheumatology 22 [place] [address] Jaylin Miller MD [address] [place] [address], [address] [place] [address] [email or web address] 03/29/2025 12:00 PM EST Office Visit [facility] Neurology 22 [place] [address] Tom Fernandez MD [address] [place] [address], 2nd [place] [address] 04/12/2025 6:00 PM EST Appointment [facility], Bone Density - [facility] 30 [place] [address] Lucia Fairchild MD [address] [place] [address] [address] [place] [address] 05/15/2025 2:20 PM EST Ancillary Procedure [facility] [address] 3rd Floor, [address] [place] [address] Amrit Jeffries MD [address] [place] [address] documented as of this encounter Results * MRI Spine (Bone) Outside (No Interpretation) (04/04/2009 12:00 AM EST) Narrative SYSTEMGENERATED, DOCUMENTATION - 04/18/2017 1:11 PM EST This study is for PACS storage only and not for interpretation. us Provider Not In System PhD IMG OUTSIDE IMAGING W /OUT INTERPRETATION Final Result documented in this encounter Visit Diagnoses Not on filedocumented in this encounter Care Teams Education Director Relationship Specialty Start Date End Date Dawna Dominique MD [address] [place] [address] PCP - General Family Medicine 03/16/17 documented as of this encounter Additional Source Comments The information contained in this document represents components of the legal health record. It is not the complete legal health record.[facility]
--- OUTSIDE RECORDS SUMMARY | 2024-12-12 14:42 | XMS_ITS | Encounter Summary ---
Author Organization [facility] Address [address] [place] [address] Phone Care Team Providers Care City Dispatcher Name Role Phone Dawna Dominique MD Primary Care Provider Encounter Details Date Type Department Care Team (Late st Contact Info) Description 07/20/2024 Procedure Pass [facility] 30 [place] [address] Social History Tobacco Use Types Packs/Day Years [...] Description 12/26/2024 1:00 PM EDT Ancillary Procedure [facility] [address] [place] [address] 3rd Floor, [address] [place] [address] Yasmin Montague DNP 22 [facility] 301 [place] [address] 01/21/2025 4:00 PM EST Office Visit [facility] Rheumatology 22 [place] [address] Jaylin Miller MD [address] [place] [address], [address] [place] [address] [email or web address] 03/29/2025 12:00 PM EST Office Visit [facility] Neurology 22 [place] [address] Tom Fernandez MD 22 [facility], 2nd [place] [address] 04/12/2025 6:00 PM EST Appointment [facility], Bone [facility] 30 [place] [address] Lucia Fairchild MD 33 [facility], [address] [place] [address] 05/15/2025 2:20 PM EST Ancillary Procedure [facility] [address] 3rd Floor, [address] [place] [address] Amrit Jeffries MD [address] [place] [address] [email or web address] documented as of this encounter Visit Diagnoses Not on filedocumented in this encounter Care Teams City Dispatcher Relationship Specialty Start Date End Date Dawna Dominique MD [address] [place] [address] PCP - General Family Medicine 03/16/17 documented as of this encounter Additional Source Comments The information contained in this document represents components of the legal health record. It is not the complete legal health record.[facility]
--- OUTSIDE RECORDS SUMMARY | 2024-12-12 14:42 | XMS_ITS | Encounter Summary ---
Author Organization [facility] Address [address] [place] [address] Phone Care Team Providers Care Cloth Painter Name Role Phone Dawna Dominique MD Primary Care Provider Encounter Details Date Type Department Care Team (Late st Contact Info) Description 08/09/2017 Ancillary Orders [facility], X-Ray - [address] [place] [address] Dawna Dominique MD [address] [place] [address] Shoulder pain, unspecified chronicity, unspecified laterality Social History Tobacco Use Types [...] Description 12/26/2024 1:00 PM EDT Ancillary Procedure [facility] [address]rd Floor, [address] [place], [place] [address] Yasmin Montague DNP 22 [facility], [address] [place] [address] 01/21/2025 4:00 PM EST Office Visit [facility] Rheumatology [address] [place] [address] Jaylin Miller MD 22 [facility], [address] [place] [address] [email or web address] 03/29/2025 12:00 PM EST Office Visit [facility] Neurology [address] [place] [address] Tom Fernandez MD 22 [facility], 2nd [place] [address] 04/12/2025 6:00 PM EST Appointment [facility], Bone Density - [facility] 30 [place] [address] Lucia Fairchild MD [address] [place] [address], [address] [place] [address] 05/15/2025 2:20 PM EST Ancillary Procedure [facility] 22 [facility] 3rd Floor, [address] [place] [address] Amrit Jeffries MD [address] [place] [address] documented as of this encounter Results * XR SHOULDER 2 VIEWS (RIGHT) (08/09/2017 2:35 PM EDT) Anatomical Region Laterality Modality Shoulder Right Radiographic Larissa ging 08/09/2017 3:36 PM EDT Impressions 08/09/2017 11:04 PM EDT Probable chronic fracture deformity involving the inferior scapula. Clinical correlation needed. Mild degenerative changes. POS - [id number] Edited by: Sonia Florence on 08/09/2017 3:53 PM Narrative 08/09/2017 11:04 PM EDT HISTORY: Status post fall four months ago. Shoulder pain and limited range of motion. COMPARISON: None FINDINGS: Three views of the right shoulder are performed. Deformity of the inferior scapula could be related to a nonacute fracture deformity. No dislocation. Minimal joint space narrowing and spurring at the acromioclavicular and glenohumeral joints from degenerative change. Minor spurring of the region of the tuberosity suggests impingement-type change. No destructive bone lesion. Procedure Note Dwain López MD - 08/09/2017 HISTORY: Status post fall four months ago. Shoulder pain and limitedrange of motion. COMPARISON: None FINDINGS: Three views of the right shoulder are performed. Deformity of the inferior scapula could be related to a nonacute fracturedeformity. No dislocation. Minimal joint space narrowing and spurring atthe acromioclavicular and glenohumeral joints from degenerative change.Minor spurring of the region of the tuberosity suggests impingement-typechange. No destructive bone lesion. IMPRESSION: Probable chronic fracture deformity involving the inferior scapula.Clinical correlation needed. Mild degenerative changes. POS - [id number] Edited by: Sonia Florence on 08/09/2017 3:53 PM Dawna Dominique MD IMG XR UPPER EXTREMITY Final Result documented in this encounter Visit Diagnoses Diagnosis Shoulder pain, unspecified chronicity, unspecified laterality Shoulder pain, unspecified chronicity, unspecified laterality documented in this encounter Care Teams Cloth Painter Relationship Specialty Start Date End Date aDwna Dominique MD [address] [place] [address] PCP - General Family Medicine 03/16/17 documented as of this encounter Additional Source Comments The information contained in this document represents components of the legal health record. It is not the complete legal health record.[facility]
--- OUTSIDE RECORDS SUMMARY | 2024-12-12 14:42 | XMS_ITS | Encounter Summary ---
Author Organization [facility] Address [address] [place] [address] Phone Care Team Providers Care Tree Inspector Name Role Phone Dawna Dominique MD Primary Care Provider Encounter Details Date Type Department Care Team (Late st Contact Info) Description 05/12/2020 Procedure Pass [facility], Ct Scan - [facility] 30 [place] [address] Social History Tobacco Use Types Packs/Day Years [...] Date of Assessment Author No Risk Indicated 05/12/2020 4:33 PM Madeline Cancino, ARLEN * Otis Suicide Severity Rating Scale (Screener/Recent Self-Report) Question Answer Date of Assessment Author 1. Wish to be (Past 1 Month) No 021 4:33 PM Madeline Cancino, RN 2. Non-Specific Active Suici sabi Thoughts (Past 1 Month) No 05/12/2020 4:33 PM EST Madeline Fitzpatrick RN 6. Suicidal Behavior (Lifetime) No 4:33 PM EST Madeline Fitzpatrick RN documented as of this encounter Plan of Treatment Upcoming Encounters Date Type Department Care Team (Late st Contact Info) Description 12/26/2024 1:00 PM EDT Ancillary Procedure [facility] [address] 3rd Floor, [address] [place] [address] Yasmin Montague DNP [address] [place] [address], [address] [place] [address] 01/21/2025 4:00 PM EST Office Visit [facility] Rheumatology 22 [place] [address] Jaylin Miller MD [address] [place] [address], [address] [place] [address] [email or web address] 03/29/2025 12:00 PM EST Office Visit [facility] Neurology 22 [place] [address] Tom Fernandez MD [address] [place] [address], 2nd [place] [address] 04/12/2025 6:00 PM EST Appointment [facility], Bone [facility] 30 [place] [address] Lucia Fairchild MD 33 [facility], [address] [place] [address] 05/15/2025 2:20 PM EST Ancillary Procedure [facility] [address] [place] [address] 3rd Floor, [address] [place] [address] Amrit Jeffries MD [address] [place] [address] documented as of this encounter Visit Diagnoses Not on filedocumented in this encounter Care Teams Tree Inspector Relationship Specialty Start Date End Date Dawna Dominique MD [address] [place] [address] PCP - General Family Medicine 03/16/17 documented as of this encounter Additional Source Comments The information contained in this document represents components of the legal health record. It is not the complete legal health record.[facility]
--- OUTSIDE RECORDS SUMMARY | 2024-12-12 14:42 | XMS_ITS | Encounter Summary ---
Author Organization [facility] Address [address] [place] [address] Phone Care Team Providers Care Dough Mixing Machine Operator Name Role Phone Dawna Dominique MD Primary Care Provider Encounter Details Date Type Department Care Team (Latest Contact Info) Description 08/18/2023 Ancillary Orders [facility] Rheumatology [address] [place] [address] Jaylin Miller MD [address] [facility], [address] [place] [address] [email or web address] Inflammatory polyarthritis (Primary Dx); Primary osteoarthritis involving multiple joints; Fibromyalgia; Diabetic polyneuropathy associated with type 2 diabetes mellitus Social History Tobacco Use Types Packs/Day Years [...] with a working camera? Not on file 05 / Intimate Partner Violence Answer Date R ecorded [...] Description 12/26/2024 1:00 PM EDT Ancillary Procedure [facility] [address] [place] [address] 3rd Floor, [address] [place] [address] Yasmin Montague DNP [address] [place] [address], [address] [place] [address] 01/21/2025 4:00 PM EST Office Visit [facility] Rheumatology [address] [place] [address] [place] [address] Jaylin Miller MD [address] [place] [address], [address] [place] [address] [email or web address] 03/29/2025 12:00 PM EST Office Visit [facility] Neurology [address] [place] [address] [place] [address] Tom Fernandez MD [address] [place] [address], 2nd [place] [address] 04/12/2025 6:00 PM EST Appointment [facility] Bone Density - [facility] [address] [place] [address] Lucia Fairchild MD [address] [facility], [address] [place] [address] 05/15/2025 2:20 PM EST Ancillary Procedure [facility] 3rd [facility], [address] [place] [address] Amrit Jeffries MD [address] [place] [address] documented as of this encounter Results * XR KNEE 4 OR MORE VIEWS (BILATERAL) (08/18/2023 2:30 PM EDT) Anatomical Region Laterality Modality Knee Bilateral, Knee Right, Knee Left Computed Radiography 08/26/2023 9:45 AM EDT Impressions 08/26/2023 9:48 AM EDT Mild enthesopathy and arthritic change affecting the right patellofemoral joint. Otherwise normal bilateral knee series. Narrative 08/26/2023 9:48 AM EDT XR KNEE 4 OR MORE VIEWS (BILATERAL) Referring clinician's provided indication for this examination in [facility]: Osteoarthritis Additional focal information: Bilateral chronic knee pain. COMPARISON: 09/08/2020 right knee series. FINDINGS: Left Knee: No fracture. Normal alignment. Normal joint spaces. No effusion. Right Knee: Small to moderate superior patellar enthesophyte, more clearly demonstrated on previous x-rays. [place] patellar view shows small medial and lateral patellar spurs. Mild retropatellar spurring. Otherwise normal appearance to the right knee. No fracture, malalignment or discernible effusion. Procedure Note Bunny Bonds MD - 08/26/2023 XR KNEE 4 OR MORE VIEWS (BILATERAL) Referring clinician's provided indication for this examination in [facility]:Osteoarthritis Additional focal information: Bilateral chronic knee pain. COMPARISON: 09/08/2020 right knee series. FINDINGS: Left Knee: No fracture. Normal alignment. Normal joint spaces. Noeffusion. Right Knee: Small to moderate superior patellar enthesophyte, more clearlydemonstrated on previous x-rays. [place] patellar view shows small medialand lateral patellar spurs. Mild retropatellar spurring. Otherwise normalappearance to the right knee. No fracture, malalignment or discernibleeffusion. IMPRESSION: Mild enthesopathy and arthritic change affecting the right patellofemoraljoint. Otherwise normal bilateral knee series. us Jaylin Miller MD IMG XR LOWER EXTREMITY F inal Result documented in this encounter Visit Diagnoses Diagnosis Inflammatory polyarthritis- Primary Unspecified inflammatory polyarthropathy Primary osteoarthritis involving multiple joints Fibromyalgia Unspecified myalgia and myositis Diabetic polyneuropathy associated with type 2 diabetes mellitus Inflammatory polyarthritis Unspecified inflammatory polyarthropathy Primary osteoarthritis involving multiple joints Fibromyalgia Unspecified myalgia and myositis Diabetic polyneuropathy associated with type 2 diabetes mellitus documented in this encounter Care Teams Dough Mixing Machine Operator Relationship Specialty Start Date End Date Dawna Dominique MD [address] [place] [address] PCP - General Family Medicine 03/16/17 documented as of this encounter Additional Source Comments The information contained in this document represents components of the legal health record. It is not the complete legal health record.[facility]
== END 2024-12-12 12:20 | disposition home or self-care (01) ==
LOC: HO.HKA 11:37
PROVIDERS: PCP Family Medicine; Visit Provider Internal Medicine Nephrology
DX: R94.4 Abnormal results of kidney function studies (principal); R10.9 Unspecified abdominal pain
CPT/HCPCS: 99204

== ENCOUNTER → 2024-12-12 11:36 | Outpatient (BNVA) | payer MEDICARE, SELFPAY | PROVIDERS: PCP Family Medicine; Visit Provider Internal Medicine Nephrology | DX: R94.4 Abnormal results of kidney function studies (principal); R10.9 Unspecified abdominal pain | CPT/HCPCS: 99202 ==

== ENCOUNTER 2025-03-15 13:15 | Outpatient (AMB) | payer MEDICARE, SELFPAY ==
--- OUTSIDE RECORDS SUMMARY | 2009-04-04 | XMS_ITS | Encounter Summary ---
Author Organization [facility] Address [address] [place] [phone] Phone Care Team Providers Care Ruby On Rails Developer Name Role Phone Unavailable Primary Care Provider Unavailabl e Reason for Visit * MRI/CAT Scan - Closed Specialty Diagnoses / Procedures Referred By Contac t Referred To Contact Procedures MRI Spine (Bone) Outside (No Interpretation) System, Provider Not In, [facility] [address] [address] Referral ID Status Reason Start Date Expiration Date Visits Re quested Visits Authorized [id number] Closed 04/18/2017 04/18/2018 1 1 Encounter Details Date Type Department Care Team (Late st Contact Info) Description 04/04/2009 Hospital Encounter [facility],Outside Imaging [address] [place] [address] System, Provider Not In, [facility] [address] [address] Social History Tobacco Use Types Packs/Day Years Used Date Smoking Tobacco: Former Cigarettes 1 26 1 962 - 1988 Smokeless Tobacco: Never Alcohol Use Standard Drinks/Week Comments No 0 (1 standard drink = 0.6 oz pur e alcohol) Education Answer Date Recorded Are you interested in more education? Not on natasha e 07/16/2022 Are you concerned about learning? Not on file 07/16/2022 No 07/16/2022 No 07/16/2022 Digital Access Answer Date Recorded No 08/11/2022 No 08/11/2022 Reliable internet access at home? Not on file 08/11/2022 Device with a working camera? Not on file Intimate Partner Violence Answer Date R ecorded Are you denied basic needs s uch as food, clothing, or medical care? No 12/05/2024 In the past 12 months have y ou been in a relationship with a person who hurts, threatens, or tries to control you? No 12/05/2024 Are you denied basic needs s uch as food, clothing, or medical care? No 12/05/2024 In the past 12 months have y ou been in a relationship with a person who hurts, threatens, or tries to control you? No 12/05/2024 Comments No Sex and Gender Information Value Date Recorded Sex Assigned at Female 06/06/2020 5:50 PM EDT Legal Sex Female 6:56 PM EST Gender Identity Female 06/06/2020 5:50 PM EDT Sexual Orientation Straight 06/06/2020 5: 50 PM EDT documented as of this encounter Plan of Treatment Upcoming Encounters Date Type Department Care Team (Late st Contact Info) Description 04/10/2025 11:15 AM EST Office Visit [facility] Gastroenterology Clinic [address] [place] [phone] Unknown, Unknown, Maria C Mills, EFFICIENCY MINER [address] [place] [phone] [email or web address] 04/12/2025 6:00 PM EST Appointment [facility], Bone Density - [address] [address] Lucia Fairchild MD [address] [place] [address], [address] [place] [address] 04/17/2025 1:15 PM EST Office Visit [facility] [address] [place] [address] [phone] Enid Wilkerson MD [address] [place] [address] Orthopedics & Sports Medicine, [place] [address] [email or web address] 05/10/2025 11:30 AM EST Office Visit [facility] Neurology Clinic [address] [place] [address] Fide Arteaga PA-C [address] [facility], 3rd [place] [address] 05/15/2025 2:20 PM EST Office Visit [facility] [address] [facility] 3rd Floor, [address] [place] [address] Amrit Jeffries MD [address] [place] [phone] 05/20/2025 4:30 PM EST Office Visit [facility] Rheumatology Clinic [address] [place] [address] Jaylin Miller MD [address] [facility], [address] [place] [address] [email or web address] documented as of this encounter Procedures Procedure Name Priority Date/Time Associated Diagnosis Comments MRI SPINE MUSCULOSKELETAL FOCUS OUTSIDE (NO INTERPRETATION) Routine 04/04/2009 12:00 AM EST documented in this encounter Results * MRI Spine (Bone) Outside (No Interpretation) (04/04/2009 12:00 AM EST) Narrative SYSTEMGENERATED, DOCUMENTATION - 04/18/2017 1:11 PM EST This study is for PACS storage only and not for interpretation. us Provider Not In System [facility] OUTSIDE IMAGING W /OUT INTERPRETATION Final Result documented in this encounter Visit Diagnoses Not on filedocumented in this encounter Additional Source Comments The information contained in this document represents components of the legal health record. It is not the complete legal health record.[facility]
--- OUTSIDE RECORDS SUMMARY | 2025-03-15 13:18 | XMS_ITS | Encounter Summary ---
Author Organization [facility] Address [address] [place] [address] Phone Care Team Providers Care Health And Safety Technician Name Role Phone Dawna Dominique MD Primary Care Provider Isaac Medina MD Unavailable Encounter Details Date Type Department Care Team (Late st Contact Info) Description 12/05/2024 Procedure Pass [facility] Endoscopy Admitting Dept Virtual Department [address] [place], [place] [id number] Social History Tobacco Use Types Packs/Day Years [...] Description 04/10/2025 11:15 AM EST Office Visit [facility] Gastroenterology Clinic [address] [place] [address] Unknown, Unknown, Maria C Mills, LEAF STICKER [address] [place] [address] [email or web address] 04/12/2025 6:00 PM EST Appointment [facility], Bone Density - [address] [address] Lucia Fairchild MD [address] [place] [address], [facility] 8 [place] [address] 04/17/2025 1:15 PM EST Office Visit [facility] Orthopedics and Sports Medicine Clinic [address] [place] [address] Enid Wilkerson MD [address] [place] [address] Orthopedics & Sports Medicine, [facility] [place], [place] [phone] [email or web address] 05/10/2025 11:30 AM EST Office Visit [facility] Neurology Clinic 22 [place] [address] Fide Arteaga PA-C [address] [place] [address], 3[address] [place] [address] 05/15/2025 2:20 PM EST Office Visit [facility] 22 [facility] 3rd Floor, [address] [place] [address] Amrit Jeffries MD [address] [place] [address] 05/20/2025 4:30 PM EST Office Visit [facility] Rheumatology Clinic 22 [place] [address] Jaylin Miller MD 22 [facility], [address] [place] [address] [email or web address] documented as of this encounter Visit Diagnoses Not on filedocumented in this encounter Care Teams Health And Safety Technician Relationship Specialty Start Date End Date Dawna Dominique MD [address] [place] [address] PCP - General Family Medicine 03/16/17 Isaac Medina MD [address] [place] [address] Gastroenterology 01/07/25 documented as of this encounter Additional Source Comments The information contained in this document represents components of the legal health record. It is not the complete legal health record.[facility]
--- OUTSIDE RECORDS SUMMARY | 2025-03-15 13:18 | XMS_ITS | Encounter Summary ---
Author Organization [facility] Address [address] [place] [address] Phone Care Team Providers Care Perfume Maker Name Role Phone Dawna Dominique MD Primary Care Provider Isaac Medina MD Unavailable Encounter Details Date Type Department Care Team (Latest Contact Info) Description 09/16/2022 Transcribe Orders Virtual Department [address] [place] [address] Carmen Pearson PA-C [address] [place] [address] [email or web address] Elevated LFTs (Primary Dx); RUQ pain Social [...] Description 04/10/2025 11:15 AM EST Office Visit [facility] Gastroenterology Clinic 10 [place] [address] Unknown, Unknown, Maria C Mills, BIOLOGY TEACHER [address] [address] [email or web address] 04/12/2025 6:00 PM EST Appointment [facility], Bone [address] [address] Lucia Fairchild MD [address] [place] [address], [address] [place] [address] 04/17/2025 1:15 PM EST Office Visit [facility]opedics [facility] Medicine Clinic [address] [place] [address] Enid Wilkerson MD [address] [place] [address] Orthopedics & Sports Medicine, [place] [address] [email or web address] 05/10/2025 11:30 AM EST Office Visit [facility] Neurology Clinic 22 [place] [address] Fide Arteaga PA-C 22 [facility], 3rd [place] [address] 05/15/2025 2:20 PM EST Office Visit [facility] 22 [facility] 3rd Floor, [address] [place] [address] Amrit Jeffries MD [address] [place] [address] 05/20/2025 4:30 PM EST Office Visit [facility] Rheumatology Clinic [address] [place] [address] Jaylin Miller MD 22 [facility], [address] [place] [address] [email or web address] documented as of this encounter Results * [...] quadrant documented in this encounter Care Teams Perfume Maker Relationship Specialty Start Date End Date Dawna Dominique MD [address] [place] [address] PCP - General Family Medicine 03/16/17 Isaac Medina MD [address] [place] [address] Gastroenterology 01/07/25 documented as of this encounter Additional Source Comments The information contained in this document represents components of the legal health record. It is not the complete legal health record.[facility]
--- OUTSIDE RECORDS SUMMARY | 2025-03-15 13:18 | XMS_ITS | Encounter Summary ---
Author Organization [facility] Address [facility]ly [facility] [address] [place] [address] Phone Care Team Providers Care Crime Scene Evidence Technician Name Role Phone Dawna Dominique MD Primary Care Provider Isaac Medina MD Unavailable Reason for Referral * MRI/CAT Scan - Closed Specialty Diagnoses / Procedures Referred By Contac t Referred To Contact Radiology Diagnoses Abdominal pain, unspecified abdominal location Procedures CT Abdomen/Pelvis Dawna Dominique MD [address] [place] [address] Phone: tel: fax: Referral ID Status Reason Start Date Expiration Date Visits Re quested Visits Authorized [id number] Closed 07/02/2022 1 1 Encounter Details Date Type Department Care Team (Latest Contact Info) Description 07/02/2022 Transcribe Orders Virtual Department [address] [place] [address] Dawna Dominique MD [address] [place] [address] Abdominal pain, unspecified abdominal location (Primary Dx) [...] Description 04/10/2025 11:15 AM EST Office Visit [facility] Gastroenterology Clinic 10 [place] [address] Unknown, Unknown, Maria C Mills, ROD STRAIGHTENER [address] [address] [email or web address] 04/12/2025 6:00 PM EST Appointment [facility], Bone Density - [address] [address] Lucia Fairchild MD [address] [place] [address], [address] [place] [address] 04/17/2025 1:15 PM EST Office Visit [facility] Orthopedics and Sports Medicine Clinic [address] [place] [address] Enid Wilkerson MD [address] [place] [address] Orthopedics & Sports Medicine, [facility] [place] [address] [email or web address] 05/10/2025 11:30 AM EST Office Visit [facility] Neurology Clinic 22 [place] [address] Fide Arteaga PA-C [address] [facility], 3rd [place] [address] 05/15/2025 2:20 PM EST Office Visit [facility] [address] Floor, [address] [place] [address] Amrit Jeffries MD [address] [place] [address] 05/20/2025 4:30 PM EST Office Visit [facility] Rheumatology Clinic [address] [place] [address] Jaylin Miller MD [address] [facility], [address] [place] [address] [email or web address] documented as of this encounter [...] location documented in this encounter Care Teams Crime Scene Evidence Technician Relationship Specialty Start Date End Date Dawna Dominique MD [address] [place] [address] PCP - General Family Medicine 03/16/17 Isaac Medina MD [address] [place] [address] ([email or web address]) [email or web address] Gastroenterology 01/07/25 documented as of this encounter Additional Source Comments The information contained in this document represents components of the legal health record. It is not the complete legal health record.[facility]
--- OUTSIDE RECORDS SUMMARY | 2025-03-15 13:18 | XMS_ITS | Continuity of Care Document ---
Author Organization [place] [facility], [facility] Address [address] [place] [address] Care Team Providers Care Phys Assistant Name Role Phone WINSTON DOMINIQUE Primary Care Provider Assessment Encounter Date Assessment Date Assessment LastModified by Organization Details LastModified Time 01/11/2025 01/11/2025 Fernanda is a 79-year-old female who presents today for evaluation of chronic sore throat, globus sensation as well as nasal drainage. Prior FFL showed evidence of reflux changes with a vocal tremor as well. Today repeat flexible laryngoscopy revealed the same and significant muscle tension dysphonia. -Increase omeprazole BID for 8 weeks -WOOD HEEL FLAP TRIMMER referral for vocal tremor and muscle tension dysphonia -work with neurology to improve tremor control -RV 3 months aleida Not available 01/11/2025 14:52:54 Plan of Treatment Reminders Order Date Submit Date Provider Last Modified By Organization Details Last Modified Time Details Appointments [facility] 15 2025 02:15P Elkin Bautista, DO Not available Not available Not available Lab None recorded . Referral speech language patholog ist referral - Patient with vocal tremor and laryngop haryngea l reflux, SVT therapy potentia l videostr obe 2024 025 [facility], [address] [facility], [place], [address], 01/14/2025 15:35:01 Procedures None recorded . Surgeries None recorded . Imaging None recorded . Medication Orders omeprazo le 20 mg tablet,d elayed release 2024 025 [id number], [address] [place], [address], 01/11/2025 14:53:31 Patient TargetsNo targets recorded. Patient Instructions Encounter Date Encounter Id Patient Instructions Last Modified By Organization Details Last Modified Time 01/11/2025 [id number] laryngopharyngea l reflux education [email or web address] Not available 01/11/2025 14:53:23 Reason for Referral Speech Language Pathologist Referral for Disorder of the larynx Patient with vocal tremor and laryngopharyngeal reflux, SVT therapy potential videostrobe Referring Physician: oDn Bautista, Otolaryngology, Encounter Date: 01/11/2025 Problems Name Problem SNOMED Code Status Onset Date Resolution Date Notes Provider Name and Address Organization Details Recorded Time Nasal congestio n 93580207 Active 2017 Nasal congestion ; Note: Date Diagnosed: 02/08/2018 2:19 PM (R09.81) Not Available [facility] 4 02:55:27 Simple obesity 745478700 Active 2017 Other obesity due to excess calories; Note: Date Diagnosed: 02/08/2018 2:19 PM (E66.09) Not Available [facility] 4 02:55:28 Obstructi ve sleep apnea syndrome 31466907 Active 2017 Obstructiv e sleep apnea (adult) (pediatric ); Note: Date Diagnosed: 02/08/2018 2:19 PM (G47.33) Not Available [facility] 4 02:55:27 Headache 00455510 Active 2017 Facial pain NOS; Note: Date Diagnosed: 02/08/2018 2:19 PM (R51) Not Available [facility] 4 02:55:29 Disorder of the larynx 29595108 Active 2024 Don Bautista DO [address] [address], [place], [address] , [place] [facility] 5 12:23:55 Vasomotor rhinitis 4849172 Active 2024 Don Bautista DO [address] [facility],[address] [address], [place], [address] , [place] [facility] 14:51:11 Chronic rhinitis 78694886 Active 2024 Don Bautista, DO [address], [place], [address] , [place] [facility] 14:51:11 Allergic rhinitis 93857797 Active 2024 Don Bautista, DO [address] [facility] [place], [place], [address] , [place] [facility] 5 14:51:11 Laryngoph aryngeal reflux 066686736 Active 2024 Don Bautista, DO [address] [facility] [place], [place], [address] , [place] [facility] 14:52:20 Edema of larynx 36574115 Active 2024 Don Bautista, DO [address] [facility] [place], [place], [address] , [place] [facility] 5 14:52:20 Gastroeso phageal reflux disease without esophagit is 794210155 [facility] 2024 Don Bautista, DO [address] [facility] [place], [place], [place], [address] , [place] [facility] 14:52:20 Voice tremor 48450867 Active 2024 Don Bautista, DO [address] [facility] [place], [place], [address] , [place] [facility] 5 14:53:41 Serum creatinin e above reference range 606072329 Active 2024 Don Bautista, DO [address], [place], [address] , [place] [facility] 14:55:49 Creatine kinase level above reference range 618049415 Active 2024 Don Bautista, DO [address] [facility] [place], [place], [address] , [facility] 5 14:56:01 Creatinin e clearance below reference range 012339955 Active 2024 Don Lily, [address] [address], [place], [address] , [facility] 5 14:56:42 Problem Notes None recorded. Procedures Surgical History Date Name Laterality Status Provider Name and Address Organization Details Recorded Time 01/11/2025 FOL_Reflux _DHL completed Don Lily, [address] [address], [place], [address], [facility] 01/11/2025 14:53:46 11/06/2024 FOL_Reflux _DHL completed Don Lily, [address] [address], [place], [address], [facility] 11/06/2024 14:53:24 Imaging Results None recorded. Procedure Notes None recorded. Medical Equipment None Reported. Allergies Allergen ID Allergen Name Allergen Category Reaction Reaction Severity Criticality Documentation Date Start Date Code Code System Note Provider Name and Address Organization Details Recorded Time [id number] Substance with sulfonami de structure and antibacte rial mechanism of action (substanc e) medicatio n other Not available Not available 08/02/2023 57359 8003 SNOMED React ion: unkno wn, unspe cifie d;; Not Available [facility] 4 01:20:27 Medications Name Sig Start Date Stop Date Status Note LastModified by Organization Details LastModified Time amoxicill in 500 mg capsule TAKE 4 CAPSULES 1 HOUR PRIOR TO INJECTIO N 01/11 completed Not Available Not Available Not Available budesonid e 32 mcg/actua tion nasal spray Take 2 sprays every day by nasal route. 2024 active Not Available Not Available Not Avai lable metformin 500 mg tablet 01/11 completed Medicati on ID: [id number] D uration Value: 30 Brand Name: metformi n Send Method: E-Prescr ibed Sub s Allowed: subs OK Medic ationGen ericName : metformi n Not Available Not Available Not Available alprazola m 1 mg tablet TAKE 1 TABLET BY MOUTH 1 HOUR PRIOR TO PROCEDUR E, MAY REPEAT 1 TIME 01/11 completed Not Available Not Available Not Available fluconazo le 150 mg tablet TAKE ONE TABLET BY MOUTH ONCE. REPEAT DOSE IN 72 HOURS IF STILL HAVING SYMPTOMS 11/06 completed Not Available Not Available Not Available metoprolo l succinate ER 50 mg tablet,ex tended release 24 hr TAKE ONE TABLET BY MOUTH EVERY DAY active Not Available Not Available No t Available allopurin ol 100 mg tablet 11/06 completed Medicati on ID: [id number] D uration Value: 30 Brand Name: allopuri nol Send Method: E-Prescr ibed Sub s Allowed: subs OK Medic ationGen ericName : allopuri nol Not Available Not Available Not Available amitripty line 50 mg tablet 11/06 completed Medicati on ID: [id number] D uration Value: 30 Brand Name: amitript yline Se nd Method: E-Prescr ibed Sub s Allowed: subs OK Medic ationGen ericName : amitript yline Not Available Not Available Not Available triamcino lone acetonide 0.025 % topical cream MIX WITH NYSTATIN AND APPLY TO ABDOMEN ONCE DAILY NEEDED active Not Available Not Available No t Available amitripty line 10 mg tablet TAKE TWO TABLETS BY MOUTH DAILY AT BEDTIME NEEDED active Not Available Not Available No t Available doxycycli ne monohydra te 100 mg capsule 1 capsule by mouth twice a day 11/06 completed Medicati on ID: [id number] D uration Value: 10 Prescri bed By Name: Leticia Quiñonez nd Name: doxycycl ine monohydr ate Send Method: E-Prescr ibed Sub s Allowed: subs OK Medic ationGen ericName : doxycycl ine monohydr ate Not Available Not Available Not Available erythromy stephanie 5 mg/gram (0.5 %) eye ointment PLACE 0.5 INCHES INTO THE LEFT EYE EVERY 4 HOURS FOR 7 DAYS 11/06 completed Not Available Not Available Not Available nitrofura ntoin macrocrys maryanne 100 mg capsule TAKE ONE CAPSULE BY MOUTH TWICE A DAY FOR 5 DAYS 11/06 completed Not Available Not Available Not Available nystatin 100,000 unit/gram topical cream MIX WITH TRIAMCIN OLONE AND APPLY ONCE DAILY TO ABDOMEN NEEDED active Not Available Not Available No t Available lisinopri l 10 mg tablet TAKE ONE TABLET BY MOUTH EVERY DAY active Not Available Not Available No t Available lidocaine 5 % topical patch PLACE ONE PATCH ONTO THE SKIN EVERY 12 HOURS NEEDED active Not Available Not Available No t Available omeprazol e 20 mg capsule,d elayed release TAKE 1 CAPSULE BY MOUTH 30 MINUTES BEFORE MORNING MEAL ONCE A DAY active Not Available Not Available No t Available allopurin ol 300 mg tablet TAKE ONE AND ONE-HALF TABLETS BY MOUTH EVERY DAY active Not Available Not Available No t Available gabapenti n 100 mg capsule TAKE ONE CAPSULE BY MOUTH THREE TIMES A DAY active Not Available Not Available No t Available metoprolo l succinate ER 25 mg tablet,ex tended release 24 hr TAKE ONE TABLET BY MOUTH EVERY DAY 01/11 completed Not Available Not Available Not Available colchicin e 0.6 mg tablet TAKE ONE TABLET BY MOUTH EVERY DAY active Not Available Not Available No t Available fluticaso ne propionat e 50 mcg/actua tion nasal spray,chris pension USE 1-2 SPRAYS BY NASAL ROUTE ONCE DAILY active Not Available Not Available No t Available metformin ER 500 mg tablet,ex tended release 24 hr TAKE 2 TO 3 TABLETS BY MOUTH DAILY IN THE EVENING active Not Available Not Available No t Available finasteri de 5 mg tablet TAKE ONE-HALF TABLET BY MOUTH EVERY DAY active Not Available Not Available No t Available oxycodone 5 mg tablet TAKE ONE TABLET BY MOUTH THREE TIMES A DAY NEEDED FOR PAIN active Not Available Not Available No t Available ciclopiro x 0.77 % topical cream APPLY TWICE DAILY TO WEBSPACE S OF FEET FOR 3 WEEKS active Not Available Not Available No t Available ezetimibe 10 mg tablet TAKE ONE TABLET BY MOUTH EVERY DAY active Not Available Not Available No t Available cyclobenz aprine 5 mg tablet TAKE ONE TABLET BY MOUTH DAILY AT BEDTIME active Not Available Not Available No t Available rosuvasta tin 5 mg tablet TAKE ONE TABLET BY MOUTH EVERY DAY 11/06 completed Not Available Not Available Not Available nitrofura ntoin monohydra te/macroc rystals 100 mg capsule TAKE ONE CAPSULE BY MOUTH TWICE A DAY FOR 7 DAYS 01/08 completed Not Available Not Available Not Available omeprazol e 20 mg tablet,de layed release Take 1 tablet twice a day by oral route for 60 days. 2024 active Not Available Not Available Not Avai lable Xarelto 20 mg tablet TAKE ONE TABLET BY MOUTH EVERY DAY WITH DINNER active Not Available Not Available No t Available Myrbetriq 50 mg tablet,ex tended release TAKE ONE TABLET BY MOUTH EVERY DAY active Not Available Not Available No t Available guaifenes in ER 600 mg tablet, extended release 12 hr TAKE ONE TABLET BY MOUTH TWICE A DAY FOR 7 DAYS 11/06 completed Not Available Not Available Not Available Ozempic 1 mg/dose (4 mg/3 mL) subcutane ous pen injector INJECT 1 MG SUBCUTAN EOUSLY ONCE WEEKLY 11/06 completed Not Available Not Available Not Available Ozempic 2 mg/dose (8 mg/3 mL) subcutane ous pen injector INJECT 2MGS SUBCUTAN EOUSLY INTO SKIN ONCE A WEEK active Not Available Not Available No t Available Vitals None Recorded Social History None recorded. Functional Status None recorded. Mental Status None recorded. Family History Nothing Reported. Medical History Condition Response Diabetes Y Anemia Y Migraines Y Arthritis Y Gynecological HistoryNo gynecological history recorded. Obstetrics History GPAL:G 0 P 0 0 0 0 Past Encounters Encounter ID Performer Location Encounter Start Date Encounter Closed Date Diagnosis/Indication Diagnosis SNOMED-CT Code Diagnosis ICD10 Code Diagnosis IMO Codes Diagnosis Note [id number] Don Bautista DO [facility] of [address] [address] 01/11/2025 13:43:49 01/11/2025 14:56:36 Disorder of the larynx 31348083 J38.7 9454322 Chronic rhinitis 4174186 6 J31.0 Laryngopha ryngeal reflux 778948754 K21.9 8978584 Edema of larynx 73982563 J38.4 41174 Voice tremor 42997352 R4 9.8 582223 Creatinine clearance below reference range 513397612 R94.4 853380 Health Concerns Section Related Observation LastModified by Organization Detai ls LastModified Time None Recorded Concern Status LastModified by Organization Details LastModified Time None Recorded Payers Encounter Date Sequence Insurance Name Policy Number Policy Farmer Covered Member ID Farmer Member ID Guarantor Name 01/11/2025 2 [employer] (MEDICARE SUPPLEMENT) Fernanda Barakat [id number] Fernanda Barakat 01/11/2025 1 MEDICARE B-[place] [facility] Fernanda Barakat [id number] Fernanda Barakat Notes Date Note Type Note Provider Name and Address Organization Details Recorded Time 01/11/2025 text/html ROS as noted in the HPI Interval history: At the last visit she had flexible laryngoscopy which revealed laryngopharyngeal reflux and a vocal tremor. In the interim she is seeing gastroenterology for an EGD - neg bx nop H pylori. No speech therapy She also had chronic nasal crusting, I did start budesonide for her for this Previous visit: Ref: Winston Dominique MD Chronic laryngitis and vocal changes, has been for months. Worse as day goes on. 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 She is having some difficulty with classes in the later time frames. She has recently started Xarelto and GLP-1 inhibitor and has been continued symptoms including potential hemoptysis and sore throat. This is intermittent and she also feels a globus sensation from as well. No history of heartburn or diagnosed acid reflux. No EGD previously. Very minimal caffeine intake. Also endorses significant low back pain as an aside and had some changes with herIt sounds like. She has not seen a second shift supervisor before. Currently has a very large creatinine number. Don Bautista, DO [address] [address], [place], [address], [facility] - [facility] 01/11/2025 14:53:58 OBGyn Episode No OBEpisode recorded.
--- OUTSIDE RECORDS SUMMARY | 2025-03-15 13:18 | XMS_ITS | Encounter Summary ---
Author Organization [facility] Address [facility] [address] [place] [address] Phone Care Team Providers Care Recording Engineer Name Role Phone Dawna Dominique MD Primary Care Provider Isaac Medina MD Unavailable Encounter Details Date Type Department Care Team (Late st Contact Info) Description 08/25/2021 Procedure Pass [facility] [address] [place] [address] Social History Tobacco Use Types Packs/Day Years [...] Department Care Team (Late Contact Info) Description 04/10/2025 11:15 AM EST Office Visit [facility] [address] [place], [place] [phone] Unknown, Unknown, Maria C Mills, MANAGER THERAPY [address] [phone] [email or web address] 04/12/2025 6:00 PM EST Appointment [facility], Bone Density - [facility] [address] [place] [address] Lucia Fairchild MD [address] [facility] [address] [place] [address] 04/17/2025 1:15 PM EST Office Visit [facility] 4 [place] [address] Enid Wilkerson MD [address] [place] [address] Orthopedics & Sports Medicine, [place] [address] [email or web address] 05/10/2025 11:30 AM EST Office Visit [facility] Neurology Clinic [address] [place] [address] Fide Arteaga PA-C [address] [facility], 3rd [place] [address] 05/15/2025 2:20 PM EST Office Visit [facility] [address] [facility] 3rd Floor, [address] [place] [address] Amrit Jeffries MD [address] [place] [address] 05/20/2025 4:30 PM EST Office Visit [facility] Rheumatology Clinic [address] [place] [address] Jaylin Miller MD [address] [facility], [address] [place] [address] [email or web address] documented as of this encounter Visit Diagnoses Not on filedocumented in this encounter Care Teams Recording Engineer Relationship Specialty Start Date End Date Dawna Dominique MD [address] [place] [address] PCP - General Family Medicine 03/16/17 Isaac Medina MD [address] [place] [address] Gastroenterology 01/07/25 documented as of this encounter Additional Source Comments The information contained in this document represents components of the legal health record. It is not the complete legal health record.[facility]
--- OUTSIDE RECORDS SUMMARY | 2025-03-15 13:18 | XMS_ITS | Encounter Summary ---
Author Organization [facility] Address [address] [place] [address] Phone Care Team Providers Care Channeling Machine Operator Name Role Phone Dawna Dominique MD Primary Care Provider Isaac Medina MD Unavailable Encounter Details Date Type Department Care Team (Late st Contact Info) Description 04/18/[address] [facility],Outside Imaging [address] [place] [address] Social History Tobacco Use Types Packs/Day Years [...] Description 04/10/2025 11:15 AM EST Office Visit [facility] 10 [place], [place] [phone] Unknown, Unknown, Maria C Mills, ENVIRONMENTAL DEPARTMENT MANAGER [address] [phone] [email or web address] 04/12/2025 6:00 PM EST Appointment [facility], Bone [facility] [address] [place] [address] Lucia Fairchild MD [address] [facility] [address] [place] [address] 04/17/2025 1:15 PM EST Office Visit [facility] [address] [place] [address] Enid Wilkerson MD [address] [place] [address] Orthopedics & Sports Medicine, [place] [address] [email or web address] 05/10/2025 11:30 AM EST Office Visit [facility] Neurology [facility] 22 [place] [address] Fide Arteaga PA-C [address] [facility], 3rd [place] [address] 05/15/2025 2:20 PM EST Office Visit [facility] 22 [facility] 3rd Floor, [address] [place] [address] Amrit Jeffries MD [address] [place] [address] 05/20/2025 4:30 PM EST Office Visit [facility] Rhe[facility]ology [facility] [address] [place] [address] Jaylin Miller MD [address] [facility], [address] [place] [address] [email or web address] documented as of this encounter Visit Diagnoses Not on filedocumented in this encounter Care Teams Channeling Machine Operator Relationship Specialty Start Date End Date Dawna Dominique MD [address] [place] [address] PCP - General Family Medicine 03/16/17 Isaac Medina MD [address] [place] [address] Gastroenterology 01/07/25 documented as of this encounter Additional Source Comments The information contained in this document represents components of the legal health record. It is not the complete legal health record.[facility]
--- OUTSIDE RECORDS SUMMARY | 2025-03-15 13:18 | XMS_ITS | Encounter Summary ---
Author Organization [facility] Address [address] [place] [address] Phone Care Team Providers Care Physical Education Instructor Name Role Phone Dawan Dominique MD Primary Care Provider Isaac Medina MD Unavailable Encounter Details Date Type Department Care Team (Late Contact Info) Description 09/11/2020 Transcribe Orders Virtual Department 30 [place] [address] Lucia Fairchild MD [address] [place] [address] [address] [place] [address] [email or web address] Thyroid nodule (Primary Dx) Social History [...] Description 04/10/2025 11:15 AM EST Office Visit [facility] Gastroenterology Clinic [address] [place] [address] Unknown, Unknown, Maria C Mills, WINDING OPERATOR 10 [facility] 2 [place] [address] [email or web address] 04/12/2025 6:00 PM EST Appointment [facility], Bone Density - [facility] 30 [place] [address] Lucia Fairchild MD [address] [place] [address] [address] [place] [address] 04/17/2025 1:15 PM EST Office Visit [facility] [address] [place] [address] Enid Wilkerson MD [address] [place] [address] Orthopedics & Sports Medicine, [place] [address] [email or web address] 05/10/2025 11:30 AM EST Office Visit [facility] Neurology Clinic [address] [place] [address] Fide Arteaga PA-C [address] [facility], 3rd [place] [address] 05/15/2025 2:20 PM EST Office Visit [facility] 22 [facility] 3rd Floor, [address] [place] [address] Amrit Jeffries MD [address] [place] [address] 05/20/2025 4:30 PM EST Office Visit [facility] Rheumatology Clinic [address] [place] [address] Jaylin Miller MD [address] [facility], [address] [place] [address] [email or web address] documented as of this encounter [...] goiter documented in this encounter Care Teams Physical Education Instructor Relationship Specialty Start Date End Date Dawna Dominique MD [address] [place] [address] PCP - General Family Medicine 03/16/17 Isaac Medina MD [address] [place] [address] Gastroenterology 01/07/25 documented as of this encounter Additional Source Comments The information contained in this document represents components of the legal health record. It is not the complete legal health record.[facility]
--- OUTSIDE RECORDS SUMMARY | 2025-03-15 13:18 | XMS_ITS | Encounter Summary ---
Author Organization [facility] Address [address] [place] [address] Phone Care Team Providers Care Solid Waste Division Supervisor Name Role Phone Dawna Dominique MD Primary Care Provider Isaac Medina MD Unavailable Encounter Details Date Type Department Care Team (Latest Contact Info) Description 01/07/2023 Transcribe Orders Virtual Department [address] [place] [address] Carmen Pearson PA-C [address] [place] [address] [email or web address] Pain of right hip (Primary Dx) Social [...] Description 04/10/2025 11:15 AM EST Office Visit [facility] Gastroenterology [facility] 10 [place] [address] Unknown, Unknown, Maria C Mills, INSURANCE BILLING SPECIALIST [address] [place] [address] [email or web address] 04/12/2025 6:00 PM EST Appointment [facility], Bone Density - [address] [address] Lucia Fairchild MD [address] [place] [address], [address] [place] [address] 04/17/2025 1:15 PM EST Office Visit [facility] 4 [place], [place] [phone] Enid Wilkerson MD [address] [place] [address] Orthopedics & Sports Medicine, [place] [address] [email or web address] 05/10/2025 11:30 AM EST Office Visit [facility] Neurology Clinic [address] [place] [address] Fide Arteaga PA-C 22 [facility], 3rd [place] [address] 05/15/2025 2:20 PM EST Office Visit [facility] 22 [facility] 3rd Floor, [address] [place] [address] Amrit Jeffries MD [address] [place] [address] anna 05/20/2025 4:30 PM EST Office Visit [facility] Rheumatology Clinic 22 [place] [address] Jaylin Miller MD 22 [facility], [address] [place] [address] [email or web address] documented as of this encounter Results [...] XR HIP 2 VW RIGHT PLUS PELVIS -02 FINDINGS: No fracture or dislocation. Mild osteoarthritis in the right hip, similarcompared to 2018. Remaining pelvis is unchanged. Diffuse osseousdemineralization. Sacrum is obscured. IMPRESSION: Unchanged mild right hip osteoarthritis compared to 2018. Carmen HICKS-C IMG XR PELVIS Final Result documented in this encounter Visit Diagnoses Diagnosis Pain of right hip- Primary Pain of right hip documented in this encounter Care Teams Solid Waste Division Supervisor Relationship Specialty Start Date End Date Dawna Dominique MD [address] [place] [address] PCP - General Family Medicine 03/16/17 Isaac Medina MD [address] [place] [address] Gastroenterology 01/07/25 documented as of this encounter Additional Source Comments The information contained in this document represents components of the legal health record. It is not the complete legal health record.[facility]
--- OUTSIDE RECORDS SUMMARY | 2025-03-15 13:18 | XMS_ITS | Encounter Summary ---
Author Organization [facility] Address [address] [place] [address] Phone Care Team Providers Care Canvas Goods Maker Name Role Phone Dawna Dominique MD Primary Care Provider Isaac Medina MD Unavailable Encounter Details Date Type Department Care Team (Late st Contact Info) Description 07/20/2024 Procedure Pass [facility] [address] [place] [address] Social History Tobacco Use Types Packs/Day Years Used Date Smoking Tobacco: Former Cigarettes 962 - 1987 Smokeless Tobacco: Never Alcohol [...] Description 04/10/2025 11:15 AM EST Office Visit [facility] Gastroenterology Clinic [address] [place] [address] Unknown, Unknown, Maria C Mills, STUFFED CASING TIER [address] [place] [address] [email or web address] 04/12/2025 6:00 PM EST Appointment [facility], Bone Density - [address] [address] Lucia Fairchild MD [address] [place] [address], [facility] 8 [place] [address] 04/17/2025 1:15 PM EST Office Visit [facility] [address] [place] [address] Enid Wilkerson MD [address] [place] [address] Orthopedics & Sports Medicine, [facility] [place], [place] [phone] [email or web address] 05/10/2025 11:30 AM EST Office Visit [facility] Neurology Clinic 22 [place] [address] Fide Arteaga PA-C [address] [place] [address], 3rd [place] [address] 05/15/2025 2:20 PM EST Office Visit [facility] 22 [facility] 3rd Floor, [address] [place] [address] Amrit Jeffries MD [address] [place] [address] 05/20/2025 4:30 PM EST Office Visit [facility] Rheumatology Clinic 22 [place] [address] Jaylin Miller MD 22 [facility], [address] [place] [address] [email or web address] documented as of this encounter Visit Diagnoses Not on filedocumented in this encounter Care Teams Canvas Goods Maker Relationship Specialty Start Date End Date Dawna Dominique MD [address] [place] [address] PCP - General Family Medicine 03/16/17 Isaac Medina MD [address] [place] [address] Gastroenterology 01/07/25 documented as of this encounter Additional Source Comments The information contained in this document represents components of the legal health record. It is not the complete legal health record.[facility]
--- OUTSIDE RECORDS SUMMARY | 2025-03-15 13:18 | XMS_ITS | Encounter Summary ---
Author Organization [facility] Address [address] [place] [address] Phone Care Team Providers Care Contact Lens Edge Buffer Name Role Phone Dawna Dominique MD Primary Care Provider Isaac Medina MD Unavailable Encounter Details Date Type Department Care Team (Late st Contact Info) Description 03/26/2024 Procedure Pass [facility] [address] [place] [address] Social History Tobacco Use Types Packs/Day Years [...] Description 04/10/2025 11:15 AM EST Office Visit [facility] Gastroenterology Clinic [address] [place] [address] Unknown, Unknown, Maria C Mills, LINDERMAN OPERATOR [address] [address] [email or web address] 04/12/2025 6:00 PM EST Appointment [facility], Bone Density - [address] [address] Lucia Fairchild MD [address] [place] [address], [facility] 8 [place] [address] 04/17/2025 1:15 PM EST Office Visit [facility] [address] [place] [address] Enid Wilkerson MD [address] [place] [address] Orthopedics & Sports Medicine, [place] [address] [email or web address] 05/10/2025 11:30 AM EST Office Visit [facility] Neurology Clinic 22 [place] [address] Fide Arteaga PA-C [address] [place] [address], 3[address] [place] [address] 05/15/2025 2:20 PM EST Office Visit [facility] 22 [facility] 3rd Floor, [address] [place] [address] Amrit Jeffries MD 50 [place] [address] 05/20/2025 4:30 PM EST Office Visit [facility] Rheumatology Clinic 22 [place] [address] Jaylin Miller MD 22 [facility], [address] [place] [address] [email or web address] documented as of this encounter Visit Diagnoses Not on filedocumented in this encounter Care Teams Contact Lens Edge Buffer Relationship Specialty Start Date End Date Dawna Dominique MD [address] [place] [address] PCP - General Family Medicine 03/16/17 Isaac Medina MD [address] [place] [address] Gastroenterology 01/07/25 documented as of this encounter Additional Source Comments The information contained in this document represents components of the legal health record. It is not the complete legal health record.[facility]
--- OUTSIDE RECORDS SUMMARY | 2025-03-15 13:18 | XMS_ITS | Data Portability ---
Author Organization [place] [facility], Allergy Address [address] [place] [address] Care Team Providers Care Fulfillment Representative Name Role Phone WINSTON DOMINIQUE Primary Care Provider Assessment Encounter Date Assessment Date Assessment LastModified by Organization Details LastModified Time 11/06/2024 11/06/2024 Fernanda is a 79-year-old female who presents today for evaluation of chronic sore throat, globus sensation as well as nasal drainage. FFL showed evidence of reflux changes with a vocal tremor as well. No friable masses, her intermittent hemoptysis is likely from dry nasal cavities from her CPAP. This is likely the reason for her dysphonia as well as globus sensation. We did discuss antireflux diet and examples along with elevation of head of bed for sleep. -Start Omeprazole BID for 8 weeks -Start Budesonide nasal spray to reduce nasal crusting. -I did place a nephrology referral as she sounds like she has kidney concerns as well as a rising creatinine and has not been brought up to another provider per her -RV 10 weeks [email or web address] Not available 11/06/2024 15:01:39 01/11/2025 01/11/2025 Fernanda is a 79-year-old female who presents today for evaluation of chronic sore throat, globus sensation as well as nasal drainage. Prior FFL showed evidence of reflux changes with a vocal tremor as well. Today repeat flexible laryngoscopy revealed the same and significant muscle tension dysphonia. -Increase omeprazole BID for 8 weeks -FINANCIAL SALES ASSISTANT referral for vocal tremor and muscle tension dysphonia -work with neurology to improve tremor control -RV 3 months [email or web address] Not available 01/11/2025 14:52:54 Plan of Treatment Reminders Order Date Submit Date Provider Last Modified By Organization Details Last Modified Time Details Appointments Establis hed 15 2025 02:15P Elkin Bautista, DO Not available Not available Not available Lab None recorded . Referral speech language patholog ist referral - Patient with vocal tremor and laryngop haryngea l reflux, SVT therapy potentia l videostr obe 2024 [facility], [address], [place], [address], 01/14/2025 15:35:01 nephrolo gist referral - elevated Cr, Recent GLP1 2024 [email or web address] Matteo Ochoa MD, [address] [place] [address] Dr Anatoliy Pablo, [place], [address], 11/23/2024 10:44:55 Procedures None recorded . Surgeries None recorded . Imaging None recorded . Medication Orders omeprazo le 20 mg tablet,d elayed release 2024 025 dlofgrenin [facility], [address] [place], [address], 01/11/2025 14:53:31 omeprazo le 20 mg tablet,d elayed release 2024 025 [facility], [address] [place], [address], 01/11/2025 14:02:47 budesoni de 32 mcg/actu ation nasal spray 2024 025 [facility], [address] [place], [address], 11/06/2024 14:52:12 Patient TargetsNo targets recorded. Patient Instructions Encounter Date Encounter Id Patient Instructions Last Modified By Organization Details Last Modified Time 11/06/2024 [id number] laryngopharyngea l reflux education dlofgrenmd Not available 11/06/2024 14:52:52 01/11/2025 [id number] laryngopharyngea l reflux education [email or web address] Not available 01/11/2025 14:53:23 Reason for Referral Regulatory Affairs Analyst Referral for Cr eatinine clearance below reference range elevated Cr, Recent GLP1 Referring Physician: Don Bautista, Otolaryngology, Encounter Date: 11/06/2024 Speech Language Pathologist Referral for Disorder of the larynx Patient with vocal tremor and laryngopharyngeal reflux, SVT therapy potential videostrobe Referring Physician: Don Bautista Otolaryngology, Encounter Date: 01/11/2025 Problems Name Problem SNOMED Code Status Onset Date Resolution Date Notes Provider Name and Address Organization Details Recorded Time Nasal congestio n 23099706 Active 2017 Nasal congestion ; Note: Date Diagnosed: 02/08/2018 2:19 PM (R09.81) Not Available [facility] 4 02:55:27 Simple obesity 839064323 Active 2017 Other obesity due to excess calories; Note: Date Diagnosed: 02/08/2018 2:19 PM (E66.09) Not Available [facility] 4 02:55:28 Obstructi ve sleep apnea syndrome 15602084 Active 2017 Obstructiv e sleep apnea (adult) (pediatric ); Note: Date Diagnosed: 02/08/2018 2:19 PM (G47.33) Not Available [facility] 4 02:55:27 Headache 11734938 Active 2017 Facial pain NOS; Note: Date Diagnosed: 02/08/2018 2:19 PM (R51) Not Available [facility] 4 02:55:29 Disorder of the larynx 86440484 Active 2024 Don Bautista DO [address] [address], [place], [address] , [place] [facility] 5 12:23:55 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 Active 2024 Don Bautista DO [address] [address], [place], [address] , [place] [facility] 5 14:51:11 Chronic rhinitis 77842957 Active 2024 Don Bautista, DO [address], [place], [address] , [place] [facility] 5 14:51:11 Allergic rhinitis 46401168 Active 2024 Don Bautista, DO [address], [place], [address] , [place] [facility] 5 14:51:11 Laryngoph aryngeal reflux 419194042 Active 2024 Don Bautista, DO [address], [place], [address] , [place] [facility] 5 14:52:20 Edema of larynx 63744480 Active 2024 Don Bautista, DO [address], [place], [address] , [place] [facility] 5 14:52:20 Gastroeso phageal reflux disease without esophagit is 005731285 Active 2024 Don Bautista, DO [address], [place], [address] , [place] [facility] 5 14:52:20 Voice tremor 05552732 Active 2024 Don Bautista, DO [address], [place], [address] , [place] [facility] 5 14:53:41 Serum creatinin e above reference range 981775882 Active 2024 Don Bautista, DO [address], [place], [address] , [place] [facility] 5 14:55:49 Creatine kinase level above reference range 941374656 Active 2024 Don Bautista, DO [address], [place], [address] , [place] [facility] 5 14:56:01 Creatinin e clearance below reference range 739856850 Active 2024 Don Lily, [address] [address], [place], [address] , [facility] 5 14:56:42 Problem Notes None recorded. Procedures Surgical History Date Name Laterality Status Provider Name and Address Organization Details Recorded Time 01/11/2025 FOL_Reflux _DHL completed Don Lily [address], [address], [facility] 01/11/2025 14:53:46 11/06/2024 FOL_Reflux _DHL completed Don Bautista [address], [address], [facility] 11/06/2024 14:53:24 Imaging Results None recorded. Procedure Notes None recorded. Medical Equipment None Reported. Allergies Allergen ID Allergen Name Allergen Category Reaction Reaction Severity Criticality Documentation Date Start Date Code Code System Note Provider Name and Address Organization Details Recorded Time 895735 Substance with sulfonami de structure and antibacte rial mechanism of action (substanc e) medicatio n other Not available Not available 08/02/2023 27709 8003 SNOMED React ion: unkno wn, unspe cifie d;; Not Available [facility] 4 01:20:27 Medications Name Sig Start [...] mg tablet 01/11 completed Medicati on ID: [id number] D uration Value: 30 Brand Name: formi n Send Method: E-Prescr ibed Sub s [...] mg tablet 11/06 completed Medicati on ID: [id number] D uration Value: 30 Brand Name: allopuri nol Send Method: E-Prescr ibed Sub s Allowed: subs OK Medic ationGen ericName : allopuri nol Not Available Not Available Not Available amitripty line 50 mg tablet 11/06 completed Medicati on ID: [id number] D uration Value: 30 Brand Name: amitript [...] a day 11/06 completed Medicati on ID: [id number] D uration Value: 10 Prescri bed By [...] Available Not Available No t Available Vitals Date Recorded Body height Body mass index (BMI) Body weight Provider Name and Address Organization Details Last Updated DateTime 11/06/2024 157.48 cm 39.3 kg/m2 89883.36 g [facility] 11/06/2024 14:31:35 Social History None recorded. Functional Status None [...] ICD10 Code Diagnosis IMO Codes Diagnosis Note [id number] Don Bautista DO [facility] [address] [address] 11/06/2024 14:19:38 11/06/2024 14:59:29 Disorder of the larynx 92058285 J38.7 9452335 Chronic rhinitis 0330026 6 J31.0 Laryngopha ryngeal reflux 557625301 K21.9 4924877 Edema of larynx 81338744 J38.4 19957 Voice tremor 05840964 R4 9.8 179937 Creatinine clearance below reference range 756941888 R94.4 197739 20875 Don Bautista DO [facility] [address] [place] [address] 01/11/2025 13:43:49 01/11/2025 14:56:36 Disorder of the larynx 47518857 J38.7 9094010 Chronic rhinitis 2915015 6 J31.0 Laryngopha ryngeal reflux 476905250 K21.9 7529256 Edema of larynx 72570256 J38.4 88323 Voice tremor 10078128 R4 9.8 260214 Creatinine clearance below reference range 912221235 R94.4 648857 Health Concerns Section Related Observation LastModified by Organization Detai ls LastModified Time None Recorded Concern Status LastModified by Organization Details LastModified Time None Recorded Advance Directives Directive None Recorded Payers Insurance Date Sequence Insurance Name Policy Number Policy Farmer Covered Member ID Farmer Member ID Guarantor Name 11/06/2024 2 [employer] Fernanda A [place]ton [id number] Fernanda A [place] 01/11/2025 2 [employer] (MEDICARE SUPPLEMENT) Fernanda A [place] [id number] Fernanda A [place] 01/11/2025 1 [place]IC[place] B-[place]: [employer] Fernanda A [place] [id number] Fernanda A [place] Notes Date Note Type Note Provider Name and Address Organization Details Recorded Time 11/06/2024 text/html ROS as noted in the HPI Ref: Winston Dominique MD Chronic laryngitis and [...] an aside and had some changes with her It sounds like. She has not seen a piano builder before. Currently has a very large creatinine number. Don Bautista, DO [address] [facility],[address] [address], [place], [address], [facility] - [facility] 11/06/2024 15:02:07 01/11/2025 text/html ROS as noted in the [...] sounds like. She has not seen a piano builder before. Currently has a very large creatinine number. Don Bautista, DO [address] [facility],[address] [address], [place], [address], [facility] - [facility] 01/11/2025 14:53:58 OBGyn Episode No OBEpisode recorded.
--- OUTSIDE RECORDS SUMMARY | 2025-03-15 13:18 | XMS_ITS | Encounter Summary ---
Author Organization [facility] Address [address] [place] [address] Phone Care Team Providers Care Nib Finisher Name Role Phone Dawna Dominique MD Primary Care Provider Isaac Medina MD Unavailable Encounter Details Date Type Department Care Team (Late st Contact Info) Description 05/12/2020 Procedure Pass [facility], Ct Scan - [address] [address] Social History Tobacco Use Types Packs/Day Years [...] Description 04/10/2025 11:15 AM EST Office Visit [facility] Gastroenterology Clinic 10 [place], [place] [phone] Unknown, Unknown, Maria C Mills, KITCHEN CLERK [address] [address] [email or web address] 04/12/2025 6:00 PM EST Appointment [facility], Bone Density - [facility] 30 [place] [address] Lucia Fairchild MD 33 [facility] 8 [place] [address] 04/17/2025 1:15 PM EST Office Visit [facility] Medicine Clinic 4 [place] [address] Enid Wilkerson MD [address] [place] [address] Orthopedics & Sports Medicine, [place] [address] [email or web address] 05/10/2025 11:30 AM EST Office Visit [facility] Neurology Clinic 22 [place] [address] Fide Arteaga PA-C 22 [facility], 3rd [place] [address] 05/15/2025 2:20 PM EST Office Visit [facility] 22 [facility] 3rd Floor, [address] [place] [address] Amrit Jeffries MD [address] [place] [address] 05/20/2025 4:30 PM EST Office Visit [facility] Rheumatology Clinic [address] [place] [address] Jaylin Miller MD [address] [facility], [address] [place] [address] [email or web address] documented as of this encounter Visit Diagnoses Not on filedocumented in this encounter Care Teams Nib Finisher Relationship Specialty Start Date End Date Dawna Dominique MD [address] [place] [address] PCP - General Family Medicine 03/16/17 Isaac Medina MD [address] [place] [address] [email or web address] Gastroenterology 01/07/25 documented as of this encounter Additional Source Comments The information contained in this document represents components of the legal health record. It is not the complete legal health record.[facility]
--- OUTSIDE RECORDS SUMMARY | 2025-03-15 13:18 | XMS_ITS | Continuity of Care Document ---
Author Organization [facility] Address [address] [place], [place] Phone [phone] Care Team Providers Care Orthotics Prosthetics Technician Name Role Phone Dawna Dominique MD Care Team Information Supervisor Plastics Unavailable LUCIA FAIRCHILD M.D. Care Team Information [...] SIG Qnty Indications Order ing Provider Date Yygwmidht44gp Tablets 1 tab by mouth rakan ry day 90tabs Lucia Fairchild M.D. 5 Ozempic (2 MG/Dose)8mg/3ML Solution Pen-Inject Inject 2MGS Subcutaneously Into Skin Once A Week 3units Lucia Fairchild M.D. 5 Colchicine0.6mg Tablets 1 tab by mouth every day 90tabs Lucia Fairchild M.D. 4 Metformin HCL TF931qd Tablets ER 24HR Take 2 To 3 Tablets By Mouth Daily In The Evening 270tabs Zaynab Fairchild M.D. 4 Fiasp Tfekxpfts523Vvyo/ML Solution Pen-Inject inject 2-10 unit subcutaneous four times a day as per ss 15ml Lucia Fairchild M.D. 4 Freestyle Samy 2/Eugene/Flash Glucose Monitoring Ipcnxz0Ekarnt Device uad to monitor bs 4-6x a day 1un Lucia Fairchild M.D. 3 Freestyle Samy 2/Sensor/Flash Glucose Monitoring Xtkfhn7Blqnto Misc uad to monitor bs 4-6x a day 6units Zaynab Fairchild M.D. 3 BD Pen Needle/Micro/Ultra-Fi ne/32G X 6mm32G X 6 mm Misc 1 four times a day 150units Zaynab Fairchild M.D. 3 Freestyle Lite TestStrips 1 strip to meter twice a day 200units Lucia Fairchild M.D. 9 Freestyle Lite Blood Glucose Monitoring SystemDevice d to test bs 2x a day 1units E11.65 Lucia Fairchild M.D. 9 Pjkkadi01hg Tablets Take One Tablet By Mouth Every Day With Dinner Unknown 0 Dubxlectvl690vz Capsules Take One Capsule By Mouth Three [...] 0 Vit D 2000iu/d Unknown 0 Cyclobenzaprine WMG98za Tablets Take One Tablet By Mouth AT Bedtime Unknown 0 Fish Zji9624st Capsules 1 tab by mouth every day Unknown 0 Oxycodone HCL5mg Tablets Take 1-2 Tablets By Mouth Every 6 Hours as Needed For Pain Unknown 0 Bjatytzjqi24kh Tablets Take One Tablet By Mouth Every Day Unknown 0 Co Q 10 200 Unknown 0 0 History Medications Ozempic (1 MG/Dose)4mg/3ML Solution Pen-Inject Inject 1 MG Subcutaneously Once Weekly 9ml Lucia Fairchild M.D. 06/17/2023 - 06/13/2024 Ozempic (0.25 Or 0.5 MG/Dose)2mg/3ML Solution Pen-Inject 0.25 mg sub cutaneously every week e9jhlbl then 0.5/week as tolerated 3ml Lucia Fairchild M.D. 05/02/2023 - 06/17/2023 Tlicile90di/3ML Solution Pen-Inject inject 1.2 mg subcutaneous every day start @ 0.6mg 2ml E11Aleksandra Fairchild M.D. 08/19/2022 - 05/02/2023 Novolog Cwnuaal654Thbm/ML Solution Pen-Inject inject 2-10 unit subcutaneous four times a day as per ss 15ml E11Aleksandra Fairchild M.D. 08/19/2022 - 04/27/2023 Trulicity0.75mg/0.5ML Solution Pen-Inject 0.75 mg subcutaneous every week 6ml Presley Fairchild M.D. 03/24/2022 - 08/19/2022 Qztcezfqnzu4xl Tablets Take 1 1/2 Tablets By Mouth Every Day AT Supper 180tabs Lucia Fairchild M.D. 03/24/2022 - 06/17/2023 Zckvptr1qp Tablets 1 by mouth every day 30tabs Presley Fairchild M.D. 10/09/2020 - 11/12/2021 Pravastatin Ueoalr56pu Tablets 1 by mouth every day 90tabs Presley Fairchild M.D. 07/03/2020 - 03/24/2022 Gfggpswbu61ol Tablets 1 by mouth every day 90tabs Jamie Fairchild M.D. 07/02/2019 - 07/03/2020 Cavseunfert8gl Tablets take 3 tablets by mouth dailyat 12noon 270tabs Lucia Fairchild M.D. 05/02/2019 - 03/24/2022 Ozempic (0.25 Or 0.5 MG/Dose)2mg/1.5ML Solution Pen-Inject 0.25 mg sub cutaneously every week q6gcwcn then 0.5/week as tolerated 1.500ml Presley Fairchild M.D. 12/29/2018 - 07/02/2019 Metformin HCL BO758ge Tablets ER 24HR Take 2 Tablets By Mouth Daily In The Evening 270tabs Melyssa MccollumD. 09/26/2018 - 03/24/2022 Metformin WQH803sz Tablets Take 2 Tablets By Mouth Twice Daily Unknown - 09/26/2018 Amitriptyline CVH60ea Tablets Take 1 Tablet By Mouth Nightly Along With Amitriptyline 25 MG Tablets Unknown - 03/24/2022 Amitriptyline VQA52ld Tablets Take Two Tablets By Mouth Twice A Day Unknown - 03/24/2022 Jcbraxmhnpj338oa Tablets Take 3 Tablet By Mouth Daily [...]
--- OUTSIDE RECORDS SUMMARY | 2025-03-15 13:18 | XMS_ITS | Encounter Summary ---
Author Organization [facility] Address [address] [place] [address] Phone Care Team Providers Care Nursing Education Specialist Name Role Phone Dawna Dominique MD Primary Care Provider Isaac Medina MD Unavailable Encounter Details Date Type Department Care Team (Late st Contact Info) Description 04/23/2024 Procedure Pass [facility], [address] [place] [address] Social History Tobacco Use Types Packs/Day Years [...] Description 04/10/2025 11:15 AM EST Office Visit [facility] [address] [place] [address] Unknown, Unknown, Maria C Mills, REAL ESTATE APPRAISER [address] [place] [address] [email or web address] 04/12/2025 6:00 PM EST Appointment [facility], Bone Density - [address] [address] Lucia Fairchild MD [address] [place] [address], [facility] 8 [place] [address] 04/17/2025 1:15 PM EST Office Visit [facility] [address] [place] [address] Enid Wilkerson MD [address] [place] [address] Orthopedics & Sports Medicine, [facility]. [place], [place] [phone] [email or web address] 05/10/2025 11:30 AM EST Office Visit [facility] 22 [place] [address] Fide Arteaga PA-C [address] [place] [address], 3[address] [place] [address] 05/15/2025 2:20 PM EST Office Visit [facility] 22 [facility] 3rd Floor, [address] [place] [address] Amrit Jeffries MD [address] [place] [address] 05/20/2025 4:30 PM EST Office Visit [facility] 22 [place] [address] Jaylin Miller MD 22 [facility], [address] [place] [address] [email or web address] documented as of this encounter Visit Diagnoses Not on filedocumented in this encounter Care Teams Nursing Education Specialist Relationship Specialty Start Date End Date Dawna Dominique MD [address] [place] [address] PCP - General Family Medicine 03/16/17 Isaac Medina MD [address] [place] [address] Gastroenterology 01/07/25 documented as of this encounter Additional Source Comments The information contained in this document represents components of the legal health record. It is not the complete legal health record.[facility]
--- OUTSIDE RECORDS SUMMARY | 2025-03-15 13:18 | XMS_ITS | Encounter Summary ---
Author Organization [facility] Address [address] [place] [address] Phone Care Team Providers Care Form Coverer Name Role Phone Dawna Dominique MD Primary Care Provider Isaac Medina MD Unavailable Encounter Details Date Type Department Care Team (Late st Contact Info) Description 02/09/2024 Transcribe Orders Virtual Department 30 [place] [address] Lucia Fairchild MD 33 [facility], [address] [place] [address] [email or web address] Disorder of bone (Primary Dx) Social History [...] 04/10/2025 11:15 AM EST Office Visit [facility]ology Clinic [address] [place] [address] Unknown, Unknown, Maria C Mills, DIRECTOR OF FEDERAL SALES [address] [place] [address] [email or web address] 04/12/2025 6:00 PM EST Appointment [facility], Bone Density - [address] [address] Lucia Fairchild MD [address] [place] [address], [address] [place] [address] 04/17/2025 1:15 PM EST Office Visit [facility] 4 [place] [address] Enid Wilkerson MD [address] [place] [address] Orthopedics & Sports Medicine, [place] [address] [email or web address] 05/10/2025 11:30 AM EST Office Visit [facility] Neurology Clinic 22 [place] [address] Fide Arteaga PA-C [facility], 3rd [place] [address] 05/15/2025 2:20 PM EST Office Visit [facility] 22 [facility] 3rd Floor, [address] [place] [address] Amrit Jeffries MD 50 [place] [address] 05/20/2025 4:30 PM EST Office Visit [facility] Rheumatology Clinic 22 [place] [address] Jaylin Miller MD 22 [facility], [address] [place] [address] [email or web address] Scheduled Orders Name Type Priority Associated Diagnoses Orde r Schedule DXA Screening Imaging Routine Disorder of bone Expected: 11/26/2024, Expires: 11/26/2025 documented as of this encounter Visit Diagnoses Diagnosis Disorder of bone- Primary documented in this encounter Care Teams Form Coverer Relationship Specialty Start Date End Date Dawna Dominique MD [address] [place] [address] PCP - General Family Medicine 03/16/17 Isaac Medina MD [address] [place] [address] Gastroenterology 01/07/25 documented as of this encounter Additional Source Comments The information contained in this document represents components of the legal health record. It is not the complete legal health record.[facility]
--- OUTSIDE RECORDS SUMMARY | 2025-03-15 13:18 | XMS_ITS | Encounter Summary ---
Author Organization [facility] Address [address] [place] [address] Phone Care Team Providers Care Certified Rehabilitation Counselor Name Role Phone Dawna Dominique MD Primary Care Provider Isaac Medina MD Unavailable Encounter Details Date Type Department Care Team (Late st Contact Info) Description 07/02/2022 Transcribe Orders [facility] Specimen Processing 30 [place] [address] Dawna Dominique MD [address] [place] [address] Social History Tobacco Use Types Packs/Day Years [...] Description 04/10/2025 11:15 AM EST Office Visit [facility] 10 [place], [place] [phone] Unknown, Unknown, Maria C Mills, HOUSEHOLD APPLIANCE INSTALLER 10 [facility] 2 [place] [address] [email or web address] 04/12/2025 6:00 PM EST Appointment [facility], Bone Density - [facility] 30 [place] [address] Lucia Fairchild MD 33 [facility] [address] [place] [address] 04/17/2025 1:15 PM EST Office Visit [facility] [address] [place] [address] Enid Wilkerson MD [address] [place] [address] Orthopedics & Sports Medicine, [place] [address] [email or web address] 05/10/2025 11:30 AM EST Office Visit [facility] [address] [place] [address] [place] [address] Fide Arteaga PA-C 22 [facility], 3rd [place] [address] 05/15/2025 2:20 PM EST Office Visit [facility] 22 [facility] 3rd Floor, [address] [place] [address] Amrit Jeffries MD 50 [place] [address] 05/20/2025 4:30 PM EST Office Visit [facility] [address] [place] [address] Jaylin Miller MD 22 [facility], [address] [place] [address] [email or web address] documented as of this encounter Visit Diagnoses Not on filedocumented in this encounter Care Teams Certified Rehabilitation Counselor Relationship Specialty Start Date End Date Dawna Dominique MD [address] [place] [address] PCP - General Family Medicine 03/16/17 Isaac Meidna MD [address] [place] [address] [email or web address] Gastroenterology 01/07/25 documented as of this encounter Additional Source Comments The information contained in this document represents components of the legal health record. It is not the complete legal health record.[facility]
--- OUTSIDE RECORDS SUMMARY | 2025-03-15 13:18 | XMS_ITS | Encounter Summary ---
Author Organization [facility] Address [address] [place] [address] Phone Care Team Providers Care Engraver Pantograph Name Role Phone Dawna Dominique MD Primary Care Provider Isaac Medina MD Unavailable Encounter Details Date Type Department Care Team (Late st Contact Info) Description 12/10/2024 Transcribe Orders [facility] [address] TolliverSHAAN garcia [address] Kit Mcknight MD [address] [place] [address], [address] [place], [place] [phone] [email or web address] Social History Tobacco Use Types Packs/Day Years [...] Office Visit [facility] [address] [place] [address] Unknown, Unknown, Maria C Mills, VALIDATION CONSULTANT [address] [place] [address] [email or web address] 04/12/2025 6:00 PM EST Appointment [facility], Bone Density - [address] [address] Lucia Fairchild MD [address] [place] [address], [address] [place] [address] 04/17/2025 1:15 PM EST Office Visit [facility] [address] [place] [phone] Enid Wilkerson MD [address] [place] [address] Orthopedics & Sports Medicine, [facility] [place] [address] [email or web address] 05/10/2025 11:30 AM EST Office Visit [facility] 22 [place] [address] Fide Arteaga PA-C 22 [facility], 3rd [place] [address] 05/15/2025 2:20 PM EST Office Visit [facility] 22 [facility] 3rd Floor, [address] [place] [address] Amrit Jeffries MD 50 [place] [address] 05/20/2025 4:30 PM EST Office Visit [facility] Rhe[facility]ology [facility] 22 [place] [address] Jaylin Miller MD 22 [facility], [address] [place] [address] [email or web address] documented as of this encounter Visit Diagnoses Not on filedocumented in this encounter Care Teams Engraver Pantograph Relationship Specialty Start Date End Date Dawna Dominique MD [address] [place] [address] PCP - General Family Medicine 03/16/17 Isaac Medina MD [address] [place] [address] Gastroenterology 01/07/25 documented as of this encounter Additional Source Comments The information contained in this document represents components of the legal health record. It is not the complete legal health record.[facility]
--- OUTSIDE RECORDS SUMMARY | 2025-03-15 13:18 | XMS_ITS | Encounter Summary ---
Author Organization [facility] Address [address] [place] [address] Phone Care Team Providers Care Front Desk Person Name Role Phone Dawna Dominique MD Primary Care Provider Isaac Medina MD Unavailable Encounter Details Date Type Department Care Team (Late Contact Info) Description 08/09/2017 Ancillary Orders [facility], X-Ray - [address] [place] [address] Dawna Dominique MD [address] [place] [address] Shoulder pain, unspecified chronicity, unspecified laterality Social [...] Description 04/10/2025 11:15 AM EST Office Visit [facility] 10 [place] [address] Unknown, Unknown, Maria C Mills, GREASE WORKER 10 [facility] 2 [place] [address] [email or web address] 04/12/2025 6:00 PM EST Appointment [facility], Bone Density - [facility] 30 [place] [address] Lucia Fairchild MD [address] [place] [address] [address] [place] [address] 04/17/2025 1:15 PM EST Office Visit [facility] [address] [place] [address] Enid Wilkerson MD [address] [place] [address] Orthopedics & Sports Medicine, [place] [address] [email or web address] 05/10/2025 11:30 AM EST Office Visit [facility] [address] [place] [address] Fide Arteaga PA-C 22 [facility], 3rd [place] [address] 05/15/2025 2:20 PM EST Office Visit [facility] 22 [facility] 3rd Floor, [address] [place] [address] Amrit Jeffries MD [address] [place] [address] 05/20/2025 4:30 PM EST Office Visit [facility] Rhe[facility]ology [facility] [address] [place] [address] Jaylin Miller MD 22 [facility], [address] [place] [address] [email or web address] documented as of this encounter Results * XR SHOULDER 2 VIEWS (RIGHT) (08/09/2017 2:35 PM EDT) Anatomical Region Laterality Modality Shoulder Right Radiographic Larissa ging 08/09/2017 3:36 PM EDT Impressions 08/09/2017 11:04 PM EDT Probable chronic fracture deformity involving the inferior scapula. Clinical correlation needed. Mild degenerative changes. POS - [id number] Edited by: Sonia Florence on 08/09/2017 3:53 [...] correlation needed. Mild degenerative changes. POS - [id number] Edited by: Sonia Florence on 08/09/2017 3:53 PM Dawna Dominique MD IMG XR UPPER EXTREMITY Final Result documented in this encounter Visit Diagnoses Diagnosis Shoulder pain, unspecified chronicity, unspecified laterality Shoulder pain, unspecified chronicity, unspecified laterality documented in this encounter Care Teams Front Desk Person Relationship Specialty Start Date End Date Dawna Dominique MD [address] [place] [address] PCP - General Family Medicine 03/16/17 Isaac Medina MD [address] [place] [address] [email or web address] Gastroenterology 01/07/25 documented as of this encounter Additional Source Comments The information contained in this document represents components of the legal health record. It is not the complete legal health record.[facility]
--- OUTSIDE RECORDS SUMMARY | 2025-03-15 13:18 | XMS_ITS | Encounter Summary ---
Author Organization [facility] Address [facility] [employer] [address] [place] [address] Phone Care Team Providers Care Supervisor Polishing Name Role Phone Dawna Dominique MD Primary Care Provider Isaac Medina MD Unavailable Reason for Referral * MRI/CAT Scan - Closed Specialty Diagnoses / Procedures Referred By Contac t Referred To Contact Radiology Diagnoses Spinal stenosis of lumbar region, unspecified whether neurogenic claudication present Procedures MRI Lumbar Spine Adebayo Luis MD [address] [place] [phone] Phone: tel: fax: Referral ID Status Reason Start Date Expiration Date Visits Re quested Visits Authorized [id number] Closed 04/23/2024 04/23/2025 1 1 Encounter Details Date Type Department Care Team (Latest Contact Info) Description 04/23/2024 Transcribe Orders Virtual Department 30 [place] [address] Adebayo Luis MD [address] [place] [phone] Spinal stenosis of lumbar region, unspecified [...] Description 04/10/2025 11:15 AM EST Office Visit [facility] Gastroenterology [facility] 10 [place] [address] Unknown, Unknown, Maria C Mills, FRACTIONATION PLANT SUPERVISOR [address] [address] [email or web address] 04/12/2025 6:00 PM EST Appointment [facility], Bone Density - [facility] 30 [place] [address] Lucia Fairchild MD 33 [facility] [place], [address] [place] [address] 04/17/2025 1:15 PM EST Office Visit [facility] [address] [place] [address] Enid Wilkerson MD [address] [place] [address] Orthopedics & Sports Medicine, [place] [address] [email or web address] 05/10/2025 11:30 AM EST Office Visit [facility] Neurology Clinic 22 [place] [address] Fide Arteaga PA-C 22 [facility], 3rd [place] [address] 05/15/2025 2:20 PM EST Office Visit [facility] [address] [place] [address] 3rd Floor, [address] [place] [address] Amrit Jeffries MD [address] [place] [address] 05/20/2025 4:30 PM EST Office Visit [facility] Rheumatology Clinic [address] [place] [address] Jaylin Miller MD [address] [place] [address], [address] [place] [address] [email or web address] documented as of this encounter [...] clinician's provided indication for this examination in [facility]: Outside Radiology Order; Investigate spinal/ foraminal stenosis [...] clinician's provided indication for this examination in [facility]:Outside Radiology Order; Investigate spinal/ foraminal stenosis TECHNIQUE: [...] present documented in this encounter Care Teams Supervisor Polishing Relationship Specialty Start Date End Date Dawna Dominique MD 95 [place] [address] PCP - General Family Medicine 03/16/17 Isaac Medina MD [address] [place] [address] [email or web address] Gastroenterology 01/07/25 documented as of this encounter Additional Source Comments The information contained in this document represents components of the legal health record. It is not the complete legal health record.[facility]
--- OUTSIDE RECORDS SUMMARY | 2025-03-15 13:18 | XMS_ITS | Encounter Summary ---
Author Organization [facility] Address [address] [place] [address] Phone Care Team Providers Care Shale Processing Technician Name Role Phone Dawna Dominique MD Primary Care Provider Isaac Medina MD Unavailable Encounter Details Date Type Department Care Team (Late st Contact Info) Description 07/02/2022 Procedure Pass [facility], Ct Scan - [address] [address] Social History Tobacco Use Types Packs/Day Years [...] Description 04/10/2025 11:15 AM EST Office Visit [facility] Gastroenterology Clinic 10 [place], [place] [phone] Unknown, Unknown, Maria C Mills, GRINDER SET UP OPERATOR [address] [phone] [email or web address] 04/12/2025 6:00 PM EST Appointment [facility], Bone Density - [facility] 30 [place] [address] Lucia Fairchild MD 33 [facility] 8 [place] [address] 04/17/2025 1:15 PM EST Office Visit [facility] 4 [place] [address] Enid Wilkerson MD [address] [place] [address] Orthopedics & Sports Medicine, [place] [address] [email or web address] 05/10/2025 11:30 AM EST Office Visit [facility] Neurology Clinic 22 [place] [address] Fide Arteaga PA-C 22 [facility], 3rd [place] [address] 05/15/2025 2:20 PM EST Office Visit [facility] 22 [facility] 3rd Floor, [address] [place] [address] Amrit Jeffries MD [address] [place] [address] 05/20/2025 4:30 PM EST Office Visit [facility] Rheumatology Clinic [address] [place] [address] Jaylin Miller MD 22 [facility], [address] [place] [address] [email or web address] documented as of this encounter Visit Diagnoses Not on filedocumented in this encounter Care Teams Shale Processing Technician Relationship Specialty Start Date End Date Dawna Dominique MD [address] [place] [address] PCP - General Family Medicine 03/16/17 Isaac Medina MD [address] [place] [address] [email or web address] Gastroenterology 01/07/25 documented as of this encounter Additional Source Comments The information contained in this document represents components of the legal health record. It is not the complete legal health record.[facility]
--- OUTSIDE RECORDS SUMMARY | 2025-03-15 13:18 | XMS_ITS | Encounter Summary ---
Author Organization [facility] Address [address] [place] [address] Phone Care Team Providers Care Computer Forensic Examiner Name Role Phone Dawna Dominique MD Primary Care Provider Isaac Medina MD Unavailable Encounter Details Date Type Department Care Team (Latest Contact Info) Description 08/03/2017 Transcribe Orders [facility] [place] [address] [place] [address] Dawna Dominique MD [address] [place] [address] Type 2 diabetes mellitus treated with insulin [...] Description 04/10/2025 11:15 AM EST Office Visit [facility] 10 [place] [address] Unknown, Unknown, Maria C Mills, BLOCK SAWYER [facility] 2 [place] [address] [email or web address] 04/12/2025 6:00 PM EST Appointment [facility], Bone Density - [facility] 30 [place] [address] Lucia Fairchild MD [address] [place] [address] [address] [place] [address] 04/17/2025 1:15 PM EST Office Visit [facility] [address] [place] [address] Enid Wilkerson MD [address] [place] [address] Orthopedics & Sports Medicine, [place] [address] [email or web address] 05/10/2025 11:30 AM EST Office Visit [facility] Neurology [facility] [address] [place] [address] Fide Arteaga PA-C 22 [facility], 3rd [place] [address] 05/15/2025 2:20 PM EST Office Visit [facility] 22 [facility] 3rd Floor, [address] [place] [address] Amrit Jeffries MD [address] [place] [address] 05/20/2025 4:30 PM EST Office Visit [facility] Rheumatology [facility] [address] [place] [address] Jaylin Miller MD [address] [place] [address], [address] [place] [address] [email or web address] documented as of this encounter Results * Microalbumin/creatinine ratio, random urine (08/03/2017 8:57 AM EDT) URINE MICROALBUMIN 0.6 0 - 2.3 mg/dL [facility] URINE CREATININE 71 mg/dL [facility] MICROALB/CRE RATIO NOT CALCULATED 0 - 20 mg/g Cre [facility] Comment:due to Microalbumin <1.2 Urine (Urine) 08/03/2017 8:5 7 AM EDT 08/03/2017 9:04 AM EDT Dawna Dominique MD LAB URINE ORDERABLES Fi nal Result Performing Organization Address City/[facility]/ZIP Co de Phone Number [address] [address] * TSH (08/03/2017 8:45 AM EDT) Pathologist [facility] TSH 1.30 0.27 - 4.20 uIU/mL [facility] Blood 08/03/2017 8:45 AM EDT 08/03/2017 8:54 AM EDT Dawna Dominique MD LAB BLOOD BKR ORDERABLE S Final Result [address] [address] * (ABNORMAL) Lipid panel (08/03/2017 8:45 AM EDT) Pathologist [facility] HDL 57 mg/dL [facility] Comment: Interpretation: Risk Level Females Decreased >55mg/dL Average 50-55 mg/dL Increased <50 mg/dL CHOLESTEROL 188 0 - 240 mg/dL [facility] TRIGLYCERIDES 190(H) 30 - 160 mg/dL [facility] LDL 93 50 - 129 mg/dL [facility] Comment: LDL levels in terms of risk for coronary heart disease: <100 mg/dL: Optimal 100-129 mg/dL: Near or above optimal 130-159 mg/dL: Borderline high 160-189 mg/dL: High >190 mg/dL: Very High CARDIAC RISK RATIO 3.3 3.3 - 4.4 C [facility] Blood 08/03/2017 8:45 AM EDT 08/03/2017 8:54 AM EDT us Dawna Dominique MD LAB BLOOD BKR ORDERABLE S Final Result [facility] 30 [place] [address] * (ABNORMAL) Comprehensive metabolic panel (08/03/2017 8:45 AM EDT) SODIUM 143 133 - 146 mmol/L [facility] POTASSIUM 4.3 3.3 - 5.1 mmol/L [facility] CHLORIDE 100 96 - 108 mmol/L [facility] CO2 27 21 - 35 mmol/L [facility] BUN 11 6 - 19 mg/dL [facility] CREATININE 0.60 0.5 - 1.5 mg/dL [facility] GLUCOSE 132(H) 70 - 99 mg/dL [facility] ALBUMIN 4.1 3.9 - 4.8 g/dL [facility] TOTAL PROTEIN 7.4 6.5 - 8.0 g/dL [facility] CALCIUM 9.5 8.4 - 10.3 mg/dL [facility] ALKALINE PHOSPHATASE 92 39 - 117 U/L [facility] TOTAL BILIRUBIN 0.4 0.0 - 1.2 mg/dL [facility] AST 24 0 - 37 U/L [facility] ALT 30 0 - 40 U/L [facility] GLOBULIN 3.3 1 - 4.8 g/dL [facility] EGFR 92 >59 mL/min/1.7 3m2 [facility] Comment:If patient is black, multiply result by 1.159. The eGFR calculation has changed from the MDRD equation to the CKD-EPI equation as of May 24, 2017. ANION GAP 20 10 - 20 mmol/L [facility] Blood 08/03/2017 8:45 AM EDT 08/03/2017 8:54 AM EDT Dawna Dominique MD LAB BLOOD BKR ORDERABLE S Final Result Performing Organization Address [facility] Co de Phone Number [address] [address] * (ABNORMAL) Uric acid (08/03/2017 8:45 AM EDT) URIC ACID 8.6(H) 2.4 - 7.0 mg/dL [facility] Blood 08/03/2017 8:45 AM EDT 08/03/2017 8:54 AM EDT Dawna Dominique MD LAB BLOOD BKR ORDERABLE S Final Result Performing Organization Address [facility] Co de Phone Number [address] [address] * (ABNORMAL) Hemoglobin A1c (08/03/2017 8:45 AM EDT) HEMOGLOBIN A1C 6.6(H) 4.3 - 5.8 % [facility] Blood 08/03/2017 8:45 AM EDT 08/03/2017 8:54 AM EDT Dawna Dominique MD LAB BLOOD BKR ORDERABLE S Final Result Performing Organization Address [facility] Co de Phone Number [address] [address] documented in this encounter Visit Diagnoses Diagnosis Type 2 diabetes mellitus treated with insulin- Primary documented in this encounter Care Teams Computer Forensic Examiner Relationship Specialty Start Date End Date Dawna Dominique MD [address] [place] [address] PCP - General Family Medicine 03/16/17 Isaac Medina MD [address] [place] [address] [email or web address] Gastroenterology 01/07/25 documented as of this encounter Additional Source Comments The information contained in this document represents components of the legal health record. It is not the complete legal health record.[facility]
--- OUTSIDE RECORDS SUMMARY | 2025-03-15 13:18 | XMS_ITS | Encounter Summary ---
Author Organization [facility] Address [address] [place] [address] Phone Care Team Providers Care Associate Research Scientist Name Role Phone Dawna Dominique MD Primary Care Provider Isaac Medina MD Unavailable Encounter Details Date Type Department Care Team (Late st Contact Info) Description 11/18/2022 Procedure Pass [facility] Endoscopy Admitting Dept Virtual Department 30 [place], [place] [id number] Social History Tobacco Use Types Packs/Day Years [...] [facility] Gastroenterology Clinic [address] [place] [address] Unknown, Unknown, Maria C Mills, OVENS SUPERVISOR [address] [place] [address] [email or web address] 04/12/2025 6:00 PM EST Appointment [facility], Bone Density - [address] [address] Lucia Fairchild MD [address] [place] [address], [facility] 8 [place] [address] 04/17/2025 1:15 PM EST Office Visit [facility] Orthopedics and Sports Medicine Clinic [address] [place] [address] Enid Wilkerson MD [address] [place] [address] Orthopedics & Sports Medicine, [facility] [place], [place] [phone] [email or web address] 05/10/2025 11:30 AM EST Office Visit [facility] Neurology Clinic 22 [place] [address] Fide Arteaga PA-C [address] [place] [address], [address]rd [place] [address] 05/15/2025 2:20 PM EST Office Visit [facility] 22 [facility] 3rd Floor, [address] [place] [address] Amrit Jeffries MD [address] [place] [address] 05/20/2025 4:30 PM EST Office Visit [facility] Rheumatology Clinic 22 [place] [address] Jaylin Miller MD 22 [facility], [address] [place] [address] [email or web address] documented as of this encounter Visit Diagnoses Not on filedocumented in this encounter Care Teams Associate Research Scientist Relationship Specialty Start Date End Date Dawna Dominique MD [address] [place] [address] PCP - General Family Medicine 03/16/17 Isaac Medina MD [address] [place] [address] Gastroenterology 01/07/25 documented as of this encounter Additional Source Comments The information contained in this document represents components of the legal health record. It is not the complete legal health record.[facility]
--- OUTSIDE RECORDS SUMMARY | 2025-03-15 13:19 | XMS_ITS | Clinical Summary ---
Author Organization [facility] Address [address] [place] [address] Phone Care Team Providers Care Director Of Analytics Name Role Phone Dawna Dominique MD Primary Care Provider [phone] Encounters Date Type Department Care Team Description 12/31/2024 12:44 PM EDT - 12/31/2024 11:59 PM EDT Hospital Encounter [facility] [address] [phone] Encounter for screening mammogram for breast cancer Discharge Disposition: Home or Self Care from Last 3 Months Surgical History Surgery Date Site/Laterality Comments HYSTERECTOMY STEREOTACTIC CORE BIOPSY Bilateral BREAST LUMPECTOMY Family History Medical History Relation Name Comments Breast cancer Father's Sister Relation Name Status Comments Father's Sister Alive Social History Tobacco Use Types Packs/Day Years Used Date Smoking Tobacco: Never Assessed Comments No Sex and Gender Information Value Date Recorded Sex Assigned at Not on file Legal Sex Female 11:39 AM EST Gender Identity Not on file Sexual Orientation Not on file Obstetrics History Para Term AB IAB SAB Ectopic Multiple Livin g Live Births 1 Last Filed Vital Signs Vital Sign Reading Time Taken Comments Blood Pressure - - Pulse - - Temperature - - Respiratory Rate - - Oxygen Saturation - - Inhaled Oxygen Concentration - - Weight 124 kg (274 lb) 12/31/2024 1:16 PM EDT Height 157.5 cm (5' 2 ) 12/31/2024 1:16 PM EDT Body Mass Index 50.12 12/31/2024 1:16 PM EDT Plan of Treatment Health Maintenance Due Date Last Done Comments Diabetes: Annual Foot Exam 1957 Diabetes: Annual Retina Eye Exam 1955 Zoster Vaccines (1 of 2) 1966 Pneumococcal Vaccine: 50+ Years (3 of 3 - PCV20 or PCV21) 11/21/2019 09/26/2019, 02/22/2006 Falls Risk Assessment 02/16/2022 Medicare Annual Wellness Visit 02/16/2022 Social Influencers of Health Screening 02/16/2022 DTaP,Tdap,and Td Vaccines (3 - Td or Tdap) 06/09/2023 06/08/2013, 02/05/2002 Depression Screening 03/21/2024 COVID-19 Vaccine ( season) 2024 12/26/2023, 12/31/2022, 07/11/2022, Additional history exists Influenza Vaccine (#1) 2024 , 12/31/2022, 12/25/2021, Additional history exists Diabetes: Annual Urine Albumin-Creatinine Ratio (uACR) 12/10/2024 10/03/2023, 08/16/2023, 06/30/2022, Additional history exists Diabetes: Blood Sugar Control Test (HGBA1C) 12/10/2024 Diabetes: Annual GFR (Glomerular Filtration Rate) 02/11/2026 02/11/2025, 01/21/2025, 10/19/2024, Additional history exists Osteoporosis Screening (Bone Density [...] on patient's age to complete this topic Procedures Procedure Name Priority Date/Time Associated Diagnosis Comments MG MAMMO DIGITAL SCREENING W ERIC BILAT Routine 12/31/2024 1:29 PM EDT Encounter for screening mammogram for breast cancer from Last 3 Months Results * MG Mammo Digital Screening w Eric bilat (12/31/2024 1:29 PM EDT) Anatomical Region Laterality Modality Breast Bilateral Mammography 12/31/2024 1:42 PM EDT Impressions 12/31/2024 1:49 PM EDT No evidence of breast malignancy. BI-RADS CATEGORY: 1 - NEGATIVE RECOMMENDATION: Screening bilateral mammogram is recommended in 1 year. Mammo Location: [facility], [address] [place] [address], [address], . -------- FINAL REPORT -------- Dictated By: Dalila Phelps Dictated Date: 12/31/2024 13:42 ET Assigned Physician: Dalila Phelps Reviewed and Electronically Signed By: Dalila Phelps Signed Date: 12/31/2024 13:49 ET Workstation ID: [id number] Transcribed By: Self Edit Transcribed Date: 12/31/2024 13:42 ET Narrative 12/31/2024 1:49 PM EDT CLINICAL: 79 years old, Female, routine annual exam. COMPARISON: Multiple prior studies dating back to 2019 TECHNIQUE: Bilateral MLO and CC views were obtained digitally with 3-D mammogram (digital breast tomosynthesis). Computer-aided detection was utilized in evaluation of this exam (CAD). FINDINGS: There is no evidence of suspicious mass or architectural distortion. No worrisome calcifications are evident. There has been no significant change from prior exam(s). BREAST DENSITY: B - There are scattered areas of fibroglandular density. Procedure Note Dalila Phelps MD - 12/31/2024 CLINICAL: 79 years old, Female, routine annual exam. COMPARISON: Multiple prior studies dating back to 2019 TECHNIQUE: Bilateral MLO and CC views were obtained digitally with 3-Dmammogram (digital breast tomosynthesis). Computer-aided detection wasutilized in evaluation of this exam (CAD). FINDINGS: There is no evidence of suspicious mass or architectural distortion. Noworrisome calcifications are evident. There has been no significantchange from prior exam(s). BREAST DENSITY: B - There are scattered areas of fibroglandular density. IMPRESSION: No evidence of breast malignancy. BI-RADS CATEGORY: 1 - NEGATIVE RECOMMENDATION: Screening bilateral mammogram is recommended in 1 year. Mammo Location: [facility], [address] [place] [address], [address], . -------- FINAL REPORT -------- Dictated By: Dalila Phelps Dictated Date: 12/31/2024 13:42 ET Assigned Physician: Dalila Phelps Reviewed and Electronically Signed By: Dalila Phelps Signed Date: 12/31/2024 13:49 ET Workstation ID: [id number] Transcribed By: Self Edit Transcribed Date: 12/31/2024 13:42 ET us Self Referral Sppl IMG BI PROCEDURES Final Resul t from Last 3 Months Insurance MEDICARE [facility] Care Teams Director Of Analytics Relationship Specialty Start Date End Date Dawna Dominique MD [address] [facility], [address] [place] [address] PCP - General Family Medicine 12/31/24
--- OUTSIDE RECORDS SUMMARY | 2025-03-15 13:19 | XMS_ITS | Encounter Summary ---
Author Organization [facility] Address [address] [place] [address] Phone Care Team Providers Care Campaign Management Specialist Name Role Phone Dawna Dominique MD Primary Care Provider Isaac Medina MD Unavailable Encounter Details Date Type Department Care Team (Late st Contact Info) Description 09/27/2018 Ancillary Orders Virtual Department 30 [place] [address] Lucia Fairchild MD [address] [place] [address] [address] [place] [address] [email or web address] Post-menopausal Social History Tobacco Use Types Packs/Day [...] Description 04/10/2025 11:15 AM EST Office Visit [facility] Gastroenterology Clinic 10 [place], [place] [phone] Unknown, Dustin, Maria C Mills, SYSTEMS MANAGEMENT CONSULTANT 10 [facility] 2 [place] [address] [email or web address] 04/12/2025 6:00 PM EST Appointment [facility], Bone Density - [facility] 30 [place] [address] Lucia Fairchild MD [address] [facility] [address] [place] [address] 04/17/2025 1:15 PM EST Office Visit [facility] Orthopedics and Sports Medicine Clinic [address] [place] [address] Enid Wilkerson MD [address] [place] [address] Orthopedics & Sports Medicine, [place] [address] [email or web address] 05/10/2025 11:30 AM EST Office Visit [facility] Neurology Clinic [address] [place] [address] [place] [address] Fide Arteaga PA-C 22 [facility], 3rd [place] [address] 05/15/2025 2:20 PM EST Office Visit [facility] 22 [facility] 3rd Floor, [address] [place] [address] Amrit Jeffries MD [address] [place] [address] 05/20/2025 4:30 PM EST Office Visit [facility] Rheumatology Clinic [address] [place] [address] Jaylin Miller MD 22 [facility], [address] [place] [address] [email or web address] documented as of this encounter [...] (natural) documented in this encounter Care Teams Campaign Management Specialist Relationship Specialty Start Date End Date Dawna Dominique MD [address] [place] [address] PCP - General Family Medicine 03/16/17 Isaac Medina MD [address] [place] [address] [email or web address] Gastroenterology 01/07/25 documented as of this encounter Additional Source Comments The information contained in this document represents components of the legal health record. It is not the complete legal health record.[facility]
--- OUTSIDE RECORDS SUMMARY | 2025-03-15 13:19 | XMS_ITS | Encounter Summary ---
Author Organization [facility] Address [address] [facility] [address] [place] [address] Phone Care Team Providers Care Top Closer Name Role Phone Dawna Dominique MD Primary Care Provider Isaac Medina MD Unavailable Encounter Details Date Type Department Care Team (Latest Contact Info) Description 08/18/2023 Ancillary Orders [facility] Rheumatology Clinic 22 [place] [address] Jaylin Miller MD 22 [facility], [address] [place] [address] [email or web address] Inflammatory polyarthritis (Primary Dx); Primary osteoarthritis involving [...] Description 04/10/2025 11:15 AM EST Office Visit [facility] Gastroenterology Clinic [address] [place] [address] Unknown, Unknown, Maria C Mills, PULMONARY NURSE PRACTITIONER [address] [place] [address] [email or web address] 04/12/2025 6:00 PM EST Appointment [facility], Bone Density - [address] [address] Lucia Fairchild MD [address] [place] [address], [address] [place] [address] 04/17/2025 1:15 PM EST Office Visit [facility] Orthopedics and Sports Medicine Clinic [address] [place] [phone] Enid Wilkerson MD [address] [place] [address] Orthopedics & Sports Medicine, [place], [place] [phone] [email or web address] 05/10/2025 11:30 AM EST Office Visit [facility] Neurology [facility] 22 [place] [address] Fide Arteaga PA-C 22 [facility], 3rd [place] [address] 05/15/2025 2:20 PM EST Office Visit [facility] 22 [facility] 3rd Floor, [address] [place] [address] Amrit Jeffries MD [address] [place] [address] 05/20/2025 4:30 PM EST Office Visit [facility] Rheumatology Clinic 22 [place] [address] Jaylin Miller MD 22 [facility], [address] [place] [address] [email or web address] documented as of this encounter [...] provided indication for this examination in Epic: Osteoarthritis Additional focal information: Bilateral chronic knee pain. COMPARISON: 09/08/2020 right knee series. FINDINGS: Left Knee: No fracture. Normal alignment. Normal joint spaces. No effusion. Right Knee: Small to moderate superior patellar enthesophyte, more clearly demonstrated on previous x-rays. Pronghorn patellar view shows small medial and lateral patellar spurs. Mild retropatellar spurring. Otherwise normal appearance to the right knee. No fracture, malalignment or discernible effusion. Procedure Note Bunny Bonds MD - 08/26/2023 XR KNEE 4 OR MORE VIEWS (BILATERAL) Referring clinician's provided indication for this examination in [facility]:Osteoarthritis Additional focal information: Bilateral chronic knee pain. COMPARISON: 09/08/2020 right knee series. FINDINGS: Left Knee: No fracture. Normal alignment. Normal joint spaces. Noeffusion. Right Knee: Small to moderate superior patellar enthesophyte, more clearlydemonstrated on previous x-rays. Pronghorn patellar view shows small medialand lateral patellar spurs. Mild retropatellar spurring. Otherwise normalappearance to the right knee. No fracture, malalignment or discernibleeffusion. IMPRESSION: Mild enthesopathy and arthritic change affecting the right patellofemoraljoint. Otherwise normal bilateral knee series. Jaylin Miller MD IMG XR LOWER EXTREMITY [...] mellitus documented in this encounter Care Teams Top Closer Relationship Specialty Start Date End Date Dawna Dominique MD [address] [place] [address] PCP - General Family Medicine 03/16/17 Isaac Medina MD [address] [place] [address] Gastroenterology 01/07/25 documented as of this encounter Additional Source Comments The information contained in this document represents components of the legal health record. It is not the complete legal health record.[facility]
--- OUTSIDE RECORDS SUMMARY | 2025-03-15 13:19 | XMS_ITS | Encounter Summary ---
Author Organization [facility] Address [address] [place] [address] Phone Care Team Providers Care Bond Runner Name Role Phone Dawna Dominique MD Primary Care Provider Isaac Medina MD Unavailable Encounter Details Date Type Department Care Team (Late st Contact Info) Description 03/12/2025 Orders Only [facility] [place] [address] [place] [address] Matteo Ochoa MD [address] [facility] [address] [place] [address] Nonspecific abnormal results of kidney function study (Primary Dx) Social History Tobacco Use Types [...] Office Visit [facility]enterology [facility] [address] [place] [address] Unknown, Unknown, Maria C Mills, CAPACITY PLANNING ANALYST [address] [place] [address] [email or web address] 04/12/2025 6:00 PM EST Appointment [facility], Bone Density - [address] [address] Lucia Fairchild MD [address] [place] [address], [address] [place] [address] 04/17/2025 1:15 PM EST Office Visit [facility] [address] [place] [address] Enid Wilkerson MD [address] [place] [address] Orthopedics & Sports Medicine, [place] [address] [email or web address] 05/10/2025 11:30 AM EST Office Visit [facility] Neurology Clinic [address] [place] [address] Fide Arteaga PA-C 22 [facility], 3rd [place] [address] 05/15/2025 2:20 PM EST Office Visit [facility] 22 [facility] 3rd Floor, [address] [place] [address] Amrit Jeffries MD [address] [place] [address] 05/20/2025 4:30 PM EST Office Visit [facility] Rheumatology Clinic [address] [place] [address] Jaylin Miller MD 22 [facility], [address] [place] [address] [email or web address] documented as of this encounter Results * Protein/Creatinine Ratio, Random Urine, Total (03/12/2025 12:25 PM EST) Total Protein/Creatinine Ratio, Urine 0.12 <0.15 03/12/2025 8:45 PM EST [facility] Comment:Ratios <0.2 reflect insignificant protein excretion. Total Protein, Urine 10.9 <=13.5 mg/dL 03/12/2025 8:45 PM EST [facility] Creatinine, Urine 93 mg/dL 025 8:45 PM [facility] Urine (Urine, Voided) Non-Blood Collection / Unknown 03/12/2025 12:25 PM EST 03/12/2025 12:25 PM EST [facility] - 03/12/2025 8:45 PM EST The reference interval(s) are unavailable for this specimen type. Comparison of this result with other laboratory results, such as the concentration in the blood, serum, or plasma, is recommended. The test result should be integrated into the clinical context for interpretation. Matteo Ochoa MD LAB URINE ORDERAB LES Final Result [facility] [address] [place] [address] * (ABNORMAL) Urinalysis with Sediment (03/12/2025 12:25 PM EST) Color Yellow Yellow 03/12/2025 9:16 PM [facility] Clarity Clear Clear 03/12/2025 9:16 PM [facility] Glucose Negative Negative 03/12/2025 9:16 PM [facility] Bilirubin Urine Negative Negative 9:16 PM [facility] Ketone Urine Negative Negative 03/12/2025 9:16 PM [facility] Specific Parrish 1.015 1.001 - 1.035 03/12/2025 9:16 PM [facility] Blood Negative Negative 03/12/2025 9:16 PM [facility] pH 6.0 5.0 - 8.0 03/12/2025 9:16 PM [facility] Protein Negative Negative 03/12/2025 9:16 PM [facility] Nitrites Negative Negative 03/12/2025 9:16 PM [facility] Leukocyte Esterase 1+(A) Negative 03/12/2025 9:16 PM [facility] Urobilinogen Negative Negative 03/12/2025 9:16 PM [facility] RBC 0-2 0 - 2 /hpf 03/12/2025 9:16 PM [facility] WBC 51-100(A) 0 - 9 /hpf 03/12/2025 9:16 PM [facility] WBC Clumps Present(A) Not Present /hpf 03/12/2025 9:16 PM [facility] Squamous Epithelial Cells 10-20(A) Not Present /hpf 03/12/2025 9:16 PM [facility] Bacteria 3+(A) Negative /hpf 03/12/2025 9:16 PM [facility] Urine (Urine, Voided) Non-Blood Collection / Unknown 03/12/2025 12:25 PM EST 03/12/2025 12:25 PM EST Narrative [facility] - 03/12/2025 9:16 PM EST The time from collection to resulting exceeded 8 hours. If the specimen was collected in a container without preservative, some parameters may be affected. Matteo Ochoa MD LAB URINE ORDERAB LES Final Result [facility] [address] [place] [address] documented in this encounter Visit Diagnoses Diagnosis Nonspecific abnormal results of kidney function study- Primary documented in this encounter Care Teams Bond Runner Relationship Specialty Start Date End Date Dawna Dominique MD [address] [place] [address] PCP - General Family Medicine 03/16/17 Isaac Medina MD [address] [place] [address] Gastroenterology 01/07/25 documented as of this encounter Additional Source Comments The information contained in this document represents components of the legal health record. It is not the complete legal health record.[facility]
--- OUTSIDE RECORDS SUMMARY | 2025-03-15 13:19 | XMS_ITS | Encounter Summary ---
Author Organization [facility] Address [address] [place] [address] Phone Care Team Providers Care Wick Tender Name Role Phone Dawna Dominique MD Primary Care Provider Isaac Medina MD Unavailable Reason for Visit * Reason Comments Medication Refill Encounter Details Date Type Department Care Team (Late st Contact Info) Description 03/08/2025 Refill [facility] [address] [place] [address] 3rd Floor, [address] [place] [address] Yasmin Montague DNP 22 [facility], [facility] [address] [place] [address] [email or web address] Medication Refill Social History Tobacco Use Types Packs/Day Years [...] PM EDT documented as of this encounter Progress Notes * Katina Cordero MA - 03/11/2025 9:20 AM EST RX REVIEWED documented in this encounter Plan of Treatment Upcoming Encounters Date Type Department Care Team (Late st Contact Info) Description 04/10/2025 11:15 AM EST Office Visit [facility] Gastroenterology Clinic 10 [place] [address] Unknown, Unknown, Maria C Mills, BOLT MACHINE OPERATOR 10 [facility] 2 [place] [address] [email or web address] 04/12/2025 6:00 PM EST Appointment [facility], Bone Density - [facility] 30 [place] [address] Lucia Fairchild MD [address] [place] [address], [address] [place] [address] 04/17/2025 1:15 PM EST Office Visit [facility] 4 [place] [address] Enid Wilkerson MD [address] [place] [address] Orthopedics & Sports Medicine, [place] [address] [email or web address] 05/10/2025 11:30 AM EST Office Visit [facility] Neurology Clinic [address] [place] [address] Fide Arteaga PA-C 22 [facility], 3rd [place] [address] 05/15/2025 2:20 PM EST Office Visit [facility] 22 [facility] 3rd Floor, [address] [place] [address] Amrit Jeffries MD [address] [place] [address] 05/20/2025 4:30 PM EST Office Visit [facility] Rheumatology Clinic 22 [place] [address] Jaylin Miller MD 22 [facility], [address] [place] [address] [email or web address] documented as of this encounter Visit Diagnoses Not on filedocumented in this encounter Care Teams Wick Tender Relationship Specialty Start Date End Date Dawna Dominique MD [address] [place] [address] PCP - General Family Medicine 03/16/17 Isaac Medina MD [address] [place] [address] Gastroenterology 01/07/25 documented as of this encounter Additional Source Comments The information contained in this document represents components of the legal health record. It is not the complete legal health record.[facility]
--- OUTSIDE RECORDS SUMMARY | 2025-03-15 13:19 | XMS_ITS | Encounter Summary ---
Author Organization [facility] Address [address] [facility] [address] [place] [address] Phone Care Team Providers Care Government Employee Name Role Phone Dawna Dominique MD Primary Care Provider Isaac Medina MD Unavailable Reason for Visit * Reason Comments Medication Refill Encounter Details Date Type Department Care Team (Late st Contact Info) Description 03/10/2025 Refill [facility] Rheumatology Clinic [address] [place] [address] Jaylin Miller MD 22 [facility], [address] [place] [address] [email or web address] Medication Refill Social History Tobacco Use Types [...] as of this encounter Progress Notes * Tricia Troy [place] - 03/11/2025 1:26 PM EST Pt filled 11/30/[address] Fna Ceron. 90 day supply ENT filled 03/08/2025 90 day supply documented in this encounter Plan of Treatment Upcoming Encounters Date Type Department Care Team (Late st Contact Info) Description 04/10/2025 11:15 AM EST Office Visit [facility] Gastroenterology Clinic 10 [place] [address] Unknown, Unknown, Maria C Mills, JOSUE [address] [address] [email or web address] 04/12/2025 6:00 PM EST Appointment [facility], Bone Density - [address] [address] Lucia Fairchild MD 33 [facility], [address] [place] [address] 04/17/2025 1:15 PM EST Office Visit [facility] 4 [place] [address] Enid Wilkerson MD [address] [place] [address] Orthopedics & Sports Medicine, [facility] [place] [address] [email or web address] 05/10/2025 11:30 AM EST Office Visit [facility] Neurology Clinic 22 [place] [address] Fide Arteaga PA-C 22 [facility], 3rd [place] [address] 05/15/2025 2:20 PM EST Office Visit [facility] [address] [place] [address] 3rd Floor, [address] [place] [address] Amrit Jeffries MD [address] [place] [address] 05/20/2025 4:30 PM EST Office Visit [facility] Rheumatology Clinic [address] [place] [address] Jaylin Miller MD [address] [place] [address], [address] [place] [address] [email or web address] documented as of this encounter Visit Diagnoses Diagnosis Cervical radiculopathy Brachial neuritis or radiculitis nos documented in this encounter Care Teams Government Employee Relationship Specialty Start Date End Date Dawna Dominique MD [address] [place] [address] PCP - General Family Medicine 03/16/17 Isaac Medina MD [address] [place] [address] Gastroenterology 01/07/25 documented as of this encounter Additional Source Comments The information contained in this document represents components of the legal health record. It is not the complete legal health record.[facility]
--- OUTSIDE RECORDS SUMMARY | 2025-03-15 13:19 | XMS_ITS | Encounter Summary ---
Author Organization [facility] Address [address] [place] [address] Phone Care Team Providers Care Solar Electric Practitioner Name Role Phone Dawna Dominique MD Primary Care Provider Isaac Medina MD Unavailable Encounter Details Date Type Department Care Team (Late st Contact Info) Description 09/29/2018 Ancillary Orders Virtual Department 30 [place] [address] Lucia Fairchild MD [address] [place] [address] [address] [place] [address] [email or web address] Multinodular goiter Social History Tobacco Use Types [...] Description 04/10/2025 11:15 AM EST Office Visit [facility] Gastroenterology Clinic 10 [place], [place] [id number] Unknown, Unknown, Maria C Mills, BAG ADJUSTER 10 [facility] 2 [place] [address] [email or web address] 04/12/2025 6:00 PM EST Appointment [facility], Bone Density - [facility] 30 [place] [address] Lucia Fairchild MD 33 [facility] [address] [place] [address] 04/17/2025 1:15 PM EST Office Visit [facility] Clinic [address] [place] [address] Enid Wilkerson MD [address] [place] [address] Orthopedics & Sports Medicine, [place] [address] [email or web address] 05/10/2025 11:30 AM EST Office Visit [facility] Neurology Clinic [address] [address] [place] [address] Fide Arteaga PA-C 22 [facility], 3rd [place] [address] 05/15/2025 2:20 PM EST Office Visit [facility] 22 [facility] 3rd Floor, [address] [place] [address] Amrit Jeffries MD [address] [place] [address] 05/20/2025 4:30 PM EST Office Visit [facility] Rheumatology Clinic [address] [place] [address] Jaylin Miller MD 22 [facility], [address] [place] [address] [email or web address] documented as of this encounter [...] on 09/29/2018 3:36 PM [address] [facility] THYROID Final Result documented in this encounter Visit Diagnoses Diagnosis Multinodular goiter Nontoxic multinodular goiter Multinodular goiter Nontoxic multinodular goiter documented in this encounter Care Teams Solar Electric Practitioner Relationship Specialty Start Date End Date Dawna Dominique MD [address] [place] [address] PCP - General Family Medicine 03/16/17 Isaac Medina MD [address] [address] Gastroenterology 01/07/25 documented as of this encounter Additional Source Comments The information contained in this document represents components of the legal health record. It is not the complete legal health record.[facility]
--- OUTSIDE RECORDS SUMMARY | 2025-03-15 13:19 | XMS_ITS | Encounter Summary ---
Author Organization [facility] Address [address] [place] [address] Phone Care Team Providers Care Journeyman Press Operator Name Role Phone Dawna Dominique MD Primary Care Provider Isaac Medina MD Unavailable Encounter Details Date Type Department Care Team (Late st Contact Info) Description 03/01/[address] [facility] [address] [place] [phone] Phillip Cordoba MD [address] [place] [address] Orthopedics & Sports Medicine, [place], [place] [phone] [email or web address] Social History Tobacco Use Types Packs/Day Years [...] 11:15 AM EST Office Visit [facility] Gastroenterology Clinic [address] [place] [address] Unknown, Unknown, Maria C Mills, MACHINIST 2ND SHIFT [address] [place] [address] [email or web address] 04/12/2025 6:00 PM EST Appointment [facility], Bone Density - [address] [address] Lucia Fairchild MD [address] [place] [address], [address] [place] [address] 04/17/2025 1:15 PM EST Office Visit [facility] Clinic 4 [place] [address] Enid Wilkerson MD [address] [place] [address] Orthopedics & Sports Medicine, [place] [address] [email or web address] 05/10/2025 11:30 AM EST Office Visit [facility] Neurology Clinic 22 [place] [address] Fide Arteaga PA-C 22 [facility], 3rd [place] [address] 05/15/2025 2:20 PM EST Office Visit [facility] 22 [facility] 3rd Floor, [address] [place] [address] Amrit Jeffries MD [address] [place] [address] 05/20/2025 4:30 PM EST Office Visit [facility] Rheumatology Clinic 22 [place] [address] Jaylin Miller MD 22 [facility], [address] [place] [address] [email or web address] documented as of this encounter Visit Diagnoses Not on filedocumented in this encounter Care Teams Journeyman Press Operator Relationship Specialty Start Date End Date Dawna Dominique MD [address] [place] [address] PCP - General Family Medicine 03/16/17 Isaac Medina MD [address] [place] [address] Gastroenterology 01/07/25 documented as of this encounter Additional Source Comments The information contained in this document represents components of the legal health record. It is not the complete legal health record.[facility]
--- OUTSIDE RECORDS SUMMARY | 2025-03-15 13:19 | XMS_ITS | Encounter Summary ---
Author Organization [facility] Address [address] [place] [address] Phone Care Team Providers Care Social Work Coordinator Name Role Phone Dawna Dominique MD Primary Care Provider Isaac Medina MD Unavailable Reason for Referral * MRI/CAT Scan - Closed Specialty Diagnoses / Procedures Referred By Contac t Referred To Contact Radiology Diagnoses Spinal stenosis, unspecified spinal region Procedures MRI Lumbar Spine Adebayo Luis MD Phone: tel: fax: Referral ID Status Reason Start Date Expiration Date Visits Re quested Visits Authorized [id number] Closed 04/12/2017 04/12/2018 1 1 Encounter Details Date Type Department Care Team (Latest Contact Info) Description 04/12/2017 Ancillary Orders Virtual Department 30 [place] [address] Adebayo Luis MD [address] [place] [phone] Spinal stenosis, unspecified spinal region; Primary osteoarthritis [...] [facility] Clinic 10 [place] [address] Unknown, Unknown, Maria C Mills, INCIDENT RESPONSE MANAGER [address] [address] [email or web address] 04/12/2025 6:00 PM EST Appointment [facility], [facility] - [address] [address] Lucia Fairchild MD [address] [place] [address], [address] [place] [address] 04/17/2025 1:15 PM EST Office Visit [facility]ics [facility] Sports Medicine Clinic [address] [place] [address] Enid Wilkerson MD [address] [place] [address] Orthopedics & Sports Medicine, [place] [address] [email or web address] 05/10/2025 11:30 AM EST Office Visit [facility] Neurology Clinic [address] [place] [address] Fide Arteaga PA-C 22 [facility], 3rd [place] [address] 05/15/2025 2:20 PM EST Office Visit [facility] [address] 3rd Floor, [address] [place] [address] Amrit Jeffries MD [address] [place] [address] 05/20/2025 4:30 PM EST Office Visit [facility] Rheumatology Clinic [address] [place] [address] Jaylin Miller MD 22 [facility], [address] [place] [address] [email or web address] Scheduled Orders Name Type Priority Associated [...] Mild osteoarthritis in the right hip POS [id number] Narrative 04/22/2017 12:43 PM EST AP pelvis [...] Mild osteoarthritis in the right hip POS [id number] Adebayo Luis MD IMG XR PELVIS Final Resul t documented in this encounter Visit Diagnoses Diagnosis Spinal stenosis, unspecified spinal region Primary osteoarthritis of hip, unspecified laterality Primary osteoarthritis of hip, unspecified laterality documented in this encounter Care Teams Social Work Coordinator Relationship Specialty Start Date End Date Dawna Dominique MD [address] [place] [address] PCP - General Family Medicine 03/16/17 Isaac Medina MD [address] [place] [address] Gastroenterology 01/07/25 documented as of this encounter Additional Source Comments The information contained in this document represents components of the legal health record. It is not the complete legal health record.[facility]
--- OUTSIDE RECORDS SUMMARY | 2025-03-15 13:19 | XMS_ITS | Clinical Summary ---
Author Organization [facility] Address [address] [place] [phone] Phone Care Team Providers Care Network Technical Analyst Name Role Phone Dawna Dominique MD Primary Care Provider Isaac Medina MD Unavailable Allergies Active Allergy Reactions Criticality Noted Date [...] tablet Take 1 tablet by mouth daily. 019 Active omega 1-nww-yls-fish oil 1,000 mg (120 mg-180 mg) Cap Take 1 capsule by mouth daily. Active pyridoxine, vitamin B6, (B-6) 25 MG tablet Take 25 mg by mouth daily. Active chromium picolinate 1,000 mcg Tab Take 200 mcg by mouth daily. Active FREESTYLE LITE METER meter kit USE DIRECTED TO TEST BLOOD SUGAR TWO TIMES A DAY 023 Active FREESTYLE LITE Strp strips USE TWO TIMES A DAY DIRECTED 023 Active NOVOFINE 32 32 gauge x 03/24 Ndle USE TO INJECT INSULIN FOUR TIMES A DAY 023 Active TURMERIC ORALIndications:w ith curcumin Take by mouth. Indications: with curcumin Active metFORMIN (GLUCOPHAGE-XR) 500 MG 24 hr tablet Take 1,500 mg by mouth nightly at bedtime. 024 Active ezetimibe (ZETIA) 10 mg tablet Take 10 mg by mouth daily. Active lidocaine 5 %Indications:Diab etic polyneuropathy associated with type [address] 1 patch onto the skin every 12 (twelve) hours as needed (Diabetic polyneuropathy associated with type 2 diabetes mellitus). 90 patch 3 025 Active OZEMPIC 2 mg/dose (8 mg/3 mL) subcutaneous injection pen INJECT 2MGS SUBCUTANEOUSLY INTO SKIN ONCE A WEEK 025 Active allopurinol (ZYLOPRIM) 300 MG tabletIndications :Hyperuricemia Take 1.5 tab daily 135 tablet 3 025 Active metoprolol succinate (TOPROL-XL) 50 MG 24 hr tabletIndications :Persistent atrial fibrillation Take 1 tablet (50 mg total) by mouth daily. 90 tablet 3 025 Active colchicine (COLCRYS) 0.6 mg tablet Take 0.6 mg by mouth daily. Active omeprazole (PRILOSEC) 20 MG capsule Take 40 mg by mouth daily. Active BETA CAROTENE ORAL Take by mouth. Activ e psyllium (METAMUCIL) Powd Take by mouth. Active gabapentin (NEURONTIN) 100 MG capsuleIndication s:Essential tremor Take 3 capsules (300 mg total) by mouth nightly at bedtime. 90 capsule 11 025 Active fluticasone propionate (FLONASE) 50 mcg/actuation nasal sprayIndications: Acute viral pharyngitis,Viral URI with cough 1-2 sprays by Nasal route daily. 32 g 3 Active methenamine (HIPREX) 1 gram tablet Take 1 g by mouth 2 (two) times a day with meals. Active MYRBETRIQ 50 mg Tb24 Take 50 mg by mouth daily. Active amitriptyline (ELAVIL) 10 MG tabletIndications :Fibromyalgia Take 2 tablets (20 mg total) by mouth nightly at bedtime as needed (Fibromyalgia). 180 tablet 1 Active cyclobenzaprine (FLEXERIL) 5 MG tabletIndications :Cervical radiculopathy TAKE ONE TABLET BY MOUTH EVERY DAY AT BEDTIME 90 tablet 1 025 Active rivaroxaban (XARELTO) 20 mg Tab TAKE ONE TABLET BY MOUTH EVERY DAY WITH DINNER 30 tablet 11 025 Active rivaroxaban (XARELTO) 20 mg Tab Take 1 tablet (20 mg total) by mouth daily with dinner. 30 tablet 4 025 2024 Discontinued Active Problems Problem Noted Date Diagnosed Date Atrial fibrillation 03/26/2024 Assessment & Plan (12/26/2024 1:06 PM EDT): Persistent. Patient underwent a cardioversion on 07/31/2024. She remains in normal sinus rhythm today with a rate of 98 bpm. She is on metoprolol for rate control. Patient is currently on Xarelto for CVA prophylaxis and tolerating well. She denies any bleeding issues or cardiac symptoms at this time. Patient to follow-up on 05/15/25 as scheduled. Plan: Continue metoprolol Continue Xarelto Follow-up as scheduled Assessment & Plan (09/24/2024 5:00 PM EDT): [...] looks like, no prior recent EKGs however. [id number] score is 5. She did recently have [...] without sciatica 0 03/23/2024 Assessment & Plan (01/21/2025 4:19 PM EST): Avoid prolonged standing, bending, stooping, [...] on lumbar spine x-rays from 11/29/2023 at [facility] I offered her an appointment at [facility] that in the past was helpful to her. Assessment & Plan (09/19/2024 4:55 PM EDT): [...] on lumbar spine x-rays from 11/29/2023 at [facility] I offered her an appointment at [facility] that in the [...] on lumbar spine x-rays from 11/29/2023 at [facility] I offered her an appointment at [facility] that in the past was helpful to her. Tachycardia 03/23/2024 Assessment & Plan (03/23/2024 2:35 PM EST): She denies increased shortness of breath or chest pain. She is scheduled for follow-up with her offset proof press operator- on 03/26/2024 Hyperlipidemia 12/06/2022 Assessment & Plan (12/26/2024 1:06 PM EDT): Patient is currently managed on ezetimibe. She is tolerating this medication well. Will continue current management and follow-up in 4 months. Assessment & Plan (09/24/2024 5:00 PM EDT): [...] of episode etc. to review it with district gauger at requested GI consultation. Neck swelling 11/19/2021 [...] 2 diabetes mellitus 11/14/2019 Assessment & Plan (01/21/2025 4:19 PM EST): She finds Lidoderm patches helpful for painful feet neuropathy Assessment & Plan (09/19/2024 4:55 PM EDT): [...] PM EDT): Follow closely with her PCP, floor associate, cider press operator/diabetic nurse educator to optimize glucose control. Assessment [...] prescribed. Follow closely with treating physician, dietitian, cider press operator, diabetic nurse educator, floor associate exactly as scheduled. Aim at BS= 90-120 mg % Cervical radiculopathy 11/14/2019 Assessment & Plan (01/21/2025 4:19 PM EST): Continue proper posture and neck support for nighttime. Avoid prolonged bending or extending without breaks in the interim. Gentle, regular stretching, ROM, muscle strengthening exercises preceded by the warm pack or warm shower. Consider gentle massage versus gentle traction versus acupuncture. Assessment & Plan (09/19/2024 4:55 PM EDT): [...] traction Inflammatory polyarthritis 08/24/2018 Assessment & Plan (01/21/2025 4:18 PM EST): Due to previously ongoing elev [...] to add any DMARDs Assessment & Plan (09/19/2024 4:54 PM EDT): [...] decide yet Tremor 08/24/2018 Assessment & Plan (01/21/2025 4:18 PM EST): Monitor carefully and watch for modifying factors. Follow-up with neurologist as scheduled. Assessment & Plan (09/19/2024 4:55 PM EDT): [...] gentle traction Hyperuricemia 01/27/2018 Assessment & Plan (01/21/2025 4:18 PM EST): Carefully continue allopurinol 1.5 tablet = 450 mg daily to keep serum uric acid below 6 mg %. Low purine diet. Proper hydration. Monitor for any signs of skin rash, abdominal pain, unusual fatigue etc. Continue tart hedrick drink Assessment & Plan (09/19/2024 4:54 PM EDT): [...] supraventricular tachycardia 09/14/19 18 Assessment & Plan (12/26/2024 1:05 PM EDT): Status post previous ablation. No known recurrence. Assessment & Plan (09/24/2024 4:58 PM EDT): [...] Dyspnea on exertion 09/13/2017 Assessment & Plan (12/26/2024 1:06 PM EDT): Chronic and worsened with back pain. No changes in management at this time. Assessment & Plan (06/13/2023 2:42 PM EDT): [...] 39.9 in adult 09/13/2017 Assessment & Plan (01/21/2025 5:51 PM EST): Congratulations on losing 2 pounds from 218 on 09/19/2024 down to 216 today and keep it off. Continue diligent portion control. Limit concentrated sugars, saturated fats and calories in the diet. Keep well-hydrated. If unable to achieve expected goal consider formal dietary/nutritional support. Assessment & Plan (10/21/2024 9:41 PM EDT): Congratulations on losing 2 pounds from 220 on 03/23/2024 down to 218 today and keep it off. Continue diligent portion control. Limit concentrated sugars, saturated fats and calories in the diet. Keep well-hydrated. If unable to achieve expected goal consider formal dietary/nutritional support. EDITH on CPAP 09/13/2017 Assessment & Plan (01/21/2025 4:18 PM EST): More than likely this is due to severe obesity-continue nightly CPAP Assessment & Plan (09/19/2024 4:55 PM EDT): [...] Use CPAP nightly Follow regularly with respiratory therapy/senior business objects developer as scheduled Assessment & Plan (02/18/2021 4:13 PM EST): Work very diligently on reducing body weight as close as possible to ideal range for her height. Use CPAP nightly Follow regularly with respiratory therapy/senior business objects developer as scheduled Assessment & Plan (10/20/2020 11:39 AM EDT): Being treated on a regular basis Assessment & Plan (10/03/2020 2:39 PM EDT): Work very diligently on reducing body weight as close as possible to ideal range for her height. Use CPAP nightly Follow regularly with respiratory therapy/senior business objects developer as scheduled Assessment & Plan (11/17/2019 9:32 PM EDT): Work very diligently on reducing body weight as close as possible to ideal range for her height. Use CPAP nightly Follow regularly with respiratory therapy/senior business objects developer as scheduled Assessment & Plan (08/27/2018 11:18 AM EDT): Work very diligently on reducing body weight as close as possible to ideal range for her height. Use CPAP nightly Follow regularly with respiratory therapy/senior business objects developer as scheduled Assessment & Plan (05/30/2018 9:21 PM EDT): Work very diligently on reducing body weight as close as possible to ideal range for her height. Use CPAP nightly Follow regularly with respiratory therapy/senior business objects developer as scheduled. Assessment & Plan (12/05/2017 11:11 AM EDT): I stressed weight loss with cutting back her calories as she is not going to be able to exercise much due to her muscular skeletal limitations. Fibromyalgia 03/16/2017 Assessment & Plan (01/21/2025 4:18 PM EST): Carefully restart amitriptyline 10 mg [...] options are to read book by Dr. Lucia Law: Managing pain before it manages you and Dr Kole Larkin Unlearn your pain . Assessment & Plan (09/19/2024 4:54 PM EDT): [...] described in book written by Dr Gaurav fontaine Another helpful options are to read book by Dr. Lucia Law: Managing pain before it manages you [...] described in book written by Dr Gaurav fontaine Another helpful options are to read book by Dr. Lucia Law: Managing pain before it manages you [...] described in book written by Dr Gaurav fontaine Another helpful options are to read book by Dr. Lucia Law: Managing pain before it manages you [...] involving multiple joints 03/16/2017 Assessment & Plan (01/21/2025 5:50 PM EST): Avoid falls, injuries, overuse. Joint protection, energy conservation techniques. Continue topical cream versus patch as needed. Consider using topicals in the form of sandwich technique toward most painful region at the time of flare. Work on reducing body weight as close as possible to ideal range for her height. On her request I agreed to inject her right knee with long-acting intra- articular steroid today, Procedure: After an informed written consent, under sterile conditions using Ethyl chloride spray for local anesthesia I have injected 40 mg Kenalog and 2 cc 1% Lidocaine into Right knee from infero-medial approach uneventfully. Details of post-procedure care were explained to the patient in the office and given in writing. Provider: Jaylin Miller MD Patient: Fernanda Barakat : 1945 Date: 01/21/2025 Return to regular walking in a pool to reduce the stiffness, pain and help with muscle strength and stress Assessment & Plan (10/21/2024 9:43 PM EDT): [...] in writing. Provider: Jaylin Miller MD Patient: Fernanda Barakat : 1945 Date: 11/16/2023 Assessment & [...] achieve expected goal consider formal dietary/nutritional support. 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 current use of non -steroidal anti-inflammatories (NSAID) [...] Encounters Date Type Department Care Team Description 03/12/2025 Orders Only [facility] [address] [place] [address] Matteo Ochoa MD Nonspecific abnormal results of kidney function study (Primary Dx) 03/10/2025 Refill [facility] Rheumatology [address] [place] [address] Jaylin Miller MD Medication Refill 03/08/2025 Refill [facility] [address] [place] [address] 3rd Floor, [address] [place] [address] Yasmin Montague DNP Medication Refill 03/01/2025 2:00 PM EST Office Visit [facility] [address] [place] [address] [place] [address] Phillip Cordoba MD Primary osteoarthritis of right knee (Primary Dx); Rheumatoid arthritis, involving unspecified site, unspecified whether rheumatoid factor present; Foot drop, right 03/01/2025 Documentation [facility] [address] [place] [address] Phillip Cordoba MD 02/19/2025 Orders Only [facility] [address] [place] [address] [place] [address] Jaylin Miller MD Inflammatory polyarthritis (Primary Dx); Primary osteoarthritis involving multiple joints; Acute pain of right knee; Status post fall 02/18/2025 3:15 PM EST - 02/18/2025 11:59 PM EST Hospital Encounter [facility], X-Ray - [address] [address] Jaylin Miller MD Discharge Disposition: Home or Self Care 01/21/2025 4:00 PM EST Office Visit [facility] [address] [place] [address] Jaylin Miller MD Inflammatory polyarthritis (Primary Dx); Primary osteoarthritis involving multiple joints; Fibromyalgia; Hyperuricemia; Diabetic polyneuropathy associated with type 2 diabetes mellitus; Cervical radiculopathy; EDITH on CPAP; Tremor; Chronic midline low back pain without sciatica; Class 2 severe obesity due to excess calories with serious comorbidity and body mass index (BMI) of 39.0 to 39.9 in adult 01/04/2025 10:00 AM EDT Office Visit [facility] [address] [place] [address] Fide Arteaga PA-C Acute viral pharyngitis; Viral URI with cough; Essential tremor 01/01/2025 5:53 PM EDT - 01/01/2025 11:59 PM EDT Hospital Encounter [facility], Ultrasound - [address] [address] Matteo Ochoa MD Discharge Disposition: Home or Self Care 12/26/2024 1:00 PM EDT Office Visit [facility] [address] [place] [address] [address]rd Floor, [address] [place] [address] Yasmin Montague DNP Paroxysmal supraventricular tachycardia (Primary Dx); Persistent atrial fibrillation; Dyspnea on exertion; Hyperlipidemia, unspecified hyperlipidemia type 12/20/2024 Transcribe Orders Virtual Department [address] [place] [address] DonMatteo rose MD Abnormal results of kidney function studies (Primary Dx); Abdominal pain, unspecified abdominal location from Last 3 Months Immunizations Immunization Administration [...] Date Smoking Tobacco: Former Cigarettes 1 1 [id number] Smokeless Tobacco: Never Tobacco Cessation:Counseling Given: Not [...] Sign Reading Time Taken Comments Blood Pressure 122/70 01/21/2025 3:59 PM EST Pulse 100 01/21/2025 3:59 PM EST Temperature 36.3 C (97.3 F) 12/05/2024 1:01 PM EDT Respiratory Rate 26 12/05/2024 2:00 PM EDT Oxygen Saturation 96% 01/21/2025 3:59 PM EST Inhaled Oxygen Concentration - - Weight 98.2 kg (216 lb 9.6 oz) 01/21/2025 3:59 P M EST Height 157.5 cm (5' 2.01 ) 01/21/2025 3:59 PM ES T Body Mass Index 39.61 01/21/2025 3:59 PM EST Plan of Treatment Upcoming Encounters Date Type Department Care Team (Late st Contact Info) Description 04/10/2025 11:15 AM EST Office Visit [facility] [address] [place] [phone] Unknown, Unknown, Maria C Mills, ACTUARIAL ASSOCIATE [address] [place] [phone] [email or web address] 04/12/2025 6:00 PM EST Appointment [facility], Bone Density - [facility] [address] [place] [address] Lucia Fairchild MD [address] [facility], [address] [place] [address] 04/17/2025 1:15 PM EST Office Visit [facility] [address] [place] [address] [phone] Enid Wilkerson MD [address] [place] [address] Orthopedics & Sports Medicine, [facility] [place] [address] [email or web address] 05/10/2025 11:30 AM EST Office Visit [facility] [address] [place] [address] Fide Arteaga PA-C [address] [facility] 3rd [place] [address] 05/15/2025 2:20 PM EST Office Visit [facility] [address] [facility] 3rd Floor, [address] [place] [address] Amrit Jeffries MD [address] [place] [address] 05/20/2025 4:30 PM EST Office Visit [facility] [address] [place] [address] Jaylin Miller MD [address] [facility], [address] [place] [address] [email or web address] Health Maintenance Due Date Last Done Comments DEPRESSION SCREENING 1959 COLOGUARD 02/15/1992 FIT TEST 02/15/1992 FOBT 02/15/1992 SIGMOIDOSCOPY 02/15/1992 VIRTUAL COLONOSCOPY 02/15/1992 ZOSTER VACCINES (1 of 2) 1997 DIABETIC EYE EXAM 11/07/2019 Adult Td,Tdap Booster 06/09/2023 06/08/2013, 002 PNEUMOCOCCAL VACCINES (50+ years) (3 of 3 - PCV20 or PCV21) 09/25/2024 09/26/2019, 02/22/2006 HEMOGLOBIN A1C 04/21/2025 10/19/2024, 05/20, 02/28/2024, Additional history exists COVID-19 VACCINE ( season) 2025 01/12/2025, 12/26/2023, 12/31/2022, Additional history exists BLOOD PRESSURE 07/21/2025 01/21/2025 LIPID PANEL 10/19/2025 10/19/2024, 05/20, 09/29/2023, Additional history exists CREATININE LEVEL 02/11/2026 03/12/2025, , 01/21/2025, Additional history exists POTASSIUM LEVEL 02/11/2026 03/12/2025, 01/20, 01/21/2025, Additional history exists COLONOSCOPY 11/19/2027 12/05/2024, 11/18/2022 COLORECTAL CANCER SCREENING 11/19/2027 OSTEOPOROSIS SCREENING INITIAL (ONE-TIME) Completed 12/01/2018 HEPATITIS C SCREENING Completed 09/17/2022 , 09/17/2022, 09/17/2022 RSV VACCINE Completed 12/31/2022 INFLUENZA VACCINE Completed 01/12/2025, , 12/31/2022, Additional history exists SMOKING STATUS SCREENING (Once After 26 Yrs) Completed 03/01/2025 HEPATITIS A VACCINES Aged Out No long [...] this topic Medical Devices Implanted Type Area Program Associate Device Identifier Shelf Expiration Date Model / Serial / Lot Staple Staple Bladder Procedures Procedure Name Priority Date/Time Associated Diagnosis Comments TOTAL PROTEIN CREATININE RATIO, RANDOM URINE Routine 03/12/2025 12:25 PM EST Nonspecific abnormal results of kidney function study URINALYSIS WITH SEDIMENT Routine 03/12/2025 12:25 PM EST Nonspecific abnormal results of kidney function study CBC AND DIFFERENTIAL Routine 03/12/2025 12:07 PM EST Fibromyalgia Inflammatory polyarthritis Hyperuricemia SEDIMENTATION RATE (ESR) Routine 03/12/2025 12:07 PM EST Fibromyalgia Inflammatory polyarthritis Hyperuricemia C-REACTIVE PROTEIN (CRP) Routine 03/12/2025 12:07 PM EST Fibromyalgia Inflammatory polyarthritis Hyperuricemia COMPREHENSIVE METABOLIC PANEL (CMP) Routine 03/12/2025 12:07 PM EST Fibromyalgia Inflammatory polyarthritis Hyperuricemia CBC AND DIFFERENTIAL Routine 03/12/2025 12:07 PM EST Fibromyalgia Inflammatory polyarthritis Hyperuricemia URIC ACID Routine 03/12/2025 12:07 PM EST Hyperuricemia XR KNEE 4 OR MORE VIEWS (RIGHT) Routine 02/18/2025 3:32 PM EST Primary osteoarthritis involving multiple joints URINE SEDIMENT Routine 02/15/2025 11:12 AM EST Urinary frequency URINALYSIS Routine 02/15/2025 11:12 AM EST Urinary frequency URINE CULTURE Routine 02/15/2025 11:12 AM EST Urinary frequency CBC AND DIFFERENTIAL Routine 02/11/2025 10:08 AM EST Fibromyalgia Inflammatory polyarthritis Hyperuricemia SEDIMENTATION RATE (ESR) Routine 02/11/2025 10:08 AM EST Fibromyalgia Inflammatory polyarthritis Hyperuricemia C-REACTIVE PROTEIN (CRP) Routine 02/11/2025 10:08 AM EST Fibromyalgia Inflammatory polyarthritis Hyperuricemia COMPREHENSIVE METABOLIC PANEL (CMP) Routine 02/11/2025 10:08 AM EST Fibromyalgia Inflammatory polyarthritis Hyperuricemia CBC AND DIFFERENTIAL Routine 02/11/2025 10:08 AM EST Fibromyalgia Inflammatory polyarthritis Hyperuricemia URIC ACID Routine 02/11/2025 10:08 AM EST Hyperuricemia CBC AND DIFFERENTIAL Routine 01/21/2025 10:49 AM EST Fibromyalgia Inflammatory polyarthritis Hyperuricemia URIC ACID Routine 01/21/2025 10:49 AM EST Hyperuricemia CBC AND DIFFERENTIAL Routine 01/21/2025 10:49 AM EST Fibromyalgia Inflammatory polyarthritis Hyperuricemia COMPREHENSIVE METABOLIC PANEL (CMP) Routine 01/21/2025 10:49 AM EST Fibromyalgia Inflammatory polyarthritis Hyperuricemia C-REACTIVE PROTEIN (CRP) Routine 01/21/2025 10:49 AM EST Fibromyalgia Inflammatory polyarthritis Hyperuricemia SEDIMENTATION RATE (ESR) Today 01/21/2025 10:49 AM EST Fibromyalgia Inflammatory polyarthritis Hyperuricemia US KIDNEYS Routine 01/01/2025 6:17 PM EDT Abnormal results of kidney function studies Abdominal pain, unspecified abdominal location HM COLONOSCOPY FOR RESULT ENTRY ONLY Routine 12/05/2024 HEMOGLOBIN A1C Routine 10/19/2024 11:31 AM EDT Diabetic polyneuropathy associated with type 2 diabetes mellitus Hyperlipidemia, unspecified hyperlipidemia type Inadequately controlled diabetes mellitus LIPID PANEL Routine 10/19/2024 11:31 AM EDT Diabetic polyneuropathy associated with type 2 diabetes mellitus Hyperlipidemia, unspecified hyperlipidemia type Inadequately controlled diabetes mellitus HEPATITIS C ANTIBODY, QUALITATIVE Routine 09/17/2022 2:09 PM EDT Need for hepatitis C screening test BD DXA AXIAL (SPINE) WITH HIP Routine 12/01/2018 3:00 PM EDT Post-menopausal from Last 3 Months or Most Recently Relevant to Health Maintenance Results * Protein/Creatinine Ratio, Random Urine, Total (03/12/2025 12:25 PM EST) Total Protein/Creatinine Ratio, Urine 0.12 <0.15 03/12/2025 8:45 PM [facility] Comment:Ratios <0.2 reflect insignificant protein excretion. Total Protein, Urine 10.9 <=13.5 mg/dL 03/12/2025 8:45 PM [facility] Creatinine, Urine 93 mg/dL 025 8:45 PM [facility] Urine (Urine, Voided) Non-Blood Collection / Unknown 03/12/2025 12:25 PM EST 03/12/2025 12:25 PM EST [facility] - 03/12/2025 8:45 PM EST The reference interval(s) are unavailable for this specimen type. Comparison of this result with other laboratory results, such as the concentration in the blood, serum, or plasma, is recommended. The test result should be integrated into the clinical context for interpretation. us Matteo Ochoa MD LAB URINE ORDERAB LES Final Result Performing Organization Address City/State/[facility] Co de Phone Number [address] [address] * (ABNORMAL) Urinalysis with Sediment (03/12/2025 12:25 PM EST) Color Yellow Yellow 03/12/2025 9:16 PM [facility] Clarity Clear Clear 03/12/2025 9:16 PM [facility] Glucose Negative Negative 03/12/2025 9:16 PM [facility] Bilirubin Urine Negative Negative 9:16 PM [facility] Ketone Urine Negative Negative 03/12/2025 9:16 PM [facility] Specific [place] 1.015 1.001 - 1.035 03/12/2025 9:16 PM [facility] Blood Negative Negative 03/12/2025 9:16 PM [facility] pH 6.0 5.0 - 8.0 03/12/2025 9:16 PM [facility] Protein Negative Negative 03/12/2025 9:16 PM [facility] Nitrites Negative Negative 03/12/2025 9:16 PM [facility] Leukocyte Esterase 1+(A) Negative 03/12/2025 9:16 PM EST [facility] Urobilinogen Negative Negative 03/12/2025 9:16 PM EST [facility] RBC 0-2 0 - 2 /hpf 03/12/2025 9:16 PM [facility] WBC 51-100(A) 0 - 9 /hpf 03/12/2025 9:16 PM [facility] WBC Clumps Present(A) Not Present /hpf 03/12/2025 9:16 PM [facility] Squamous Epithelial Cells 10-20(A) Not Present /hpf 03/12/2025 9:16 PM [facility] Bacteria 3+(A) Negative /hpf 03/12/2025 9:16 PM [facility] Urine (Urine, Voided) Non-Blood Collection / Unknown 03/12/2025 12:25 PM EST 03/12/2025 12:25 PM EST [facility] - 03/12/2025 9:16 PM EST The time from collection to resulting exceeded 8 hours. If the specimen was collected in a container without preservative, some parameters may be affected. us Matteo Ochoa MD LAB URINE ORDERAB LES Final Result [address] [address] * (ABNORMAL) Comprehensive Metabolic Panel (CMP) (03/12/2025 12:07 PM EST) Only the most recent of3 resultswithin the time period is included. Sodium 137 136 - 145 mmol/L 03/12/2025 8:33 PM [facility] Potassium 4.4 3.4 - 5.1 mmol/L 03/12/2025 8:33 PM [facility] Chloride 101 98 - 107 mmol/L 03/12/2025 8:33 PM [facility] CO2 23 20 - 31 mmol/L 03/12/2025 8:33 PM [facility] BUN 21 6 - 23 mg/dL 03/12/2025 8:33 PM [facility] Creatinine 0.70 0.50 - 1.00 mg/dL 03/12/2025 8:33 PM [facility] Glucose 179(H) 70 - 99 mg/dL 03/12/2025 8:33 PM [facility] Calcium 9.6 8.5 - 10.5 mg/dL 03/12/2025 8:33 PM [facility] AST 46(H) <33 U/L 03/12/2025 8:33 PM [facility] ALT 46(H) <34 U/L 03/12/2025 8:33 PM [facility] Alkaline Phosphatase 105 40 - 130 U/L 03/12/2025 8:33 PM [facility] Bilirubin, Total 0.3 0.0 - 1.2 mg/dL 03/12/2025 8:33 PM [facility] Total Protein 7.3 6.4 - 8.3 g/dL 03/12/2025 8:33 PM [facility] Albumin 4.2 3.5 - 5.2 g/dL 03/12/2025 8:33 PM [facility] Globulin 3.1 1.9 - 4.1 g/dL 03/12/2025 8:33 PM [facility] eGFR 88 >59 mL/min/1.7 3m2 03/12/2025 8:33 PM [facility] Comment:Estimated glomerular filtration rate calculated using the CKD-EPI refit equation. Anion Gap 13 3 - 17 mmol/L 03/12/2025 8:33 PM [facility] Blood (Blood) Venipuncture / Unknown 03/12/2025 12:07 PM EST 03/12/2025 12:08 PM EST us Jaylin Miller MD LAB BLOOD BKR ORDERABLES Final Result [facility] [address] [place] [address] * (ABNORMAL) CBC and Differential (03/12/2025 12:07 PM EST) Only the most recent of3 resultswithin the time period is included. WBC 8.17 4.00 - 11.00 K/uL 03/12/2025 8:17 PM [facility] RBC 3.87(L) 4.00 - 5.20 M/uL 03/12/2025 8:17 PM [facility] Hemoglobin 12.1 12.0 - 16.0 g/dL 03/12/2025 8:17 PM [facility] Hematocrit 36.5 36.0 - 46.0 % 03/12/2025 8:17 PM [facility] MCV 94.3 80.0 - 100.0 fL 03/12/2025 8:17 PM [facility] MCH 31.3(H) 27.0 - 31.0 pg 03/12/2025 8:17 PM [facility] MCHC 33.2 32.0 - 36.0 g/dL 03/12/2025 8:17 PM [facility] MPV 10.3 8.4 - 12.0 fL 03/12/2025 8:17 PM [facility] RDW-CV 14.1 11.5 - 14.5 % 03/12/2025 8:17 PM [facility] PLT 244 150 - 450 K/uL 03/12/2025 8:17 PM [facility] Neutrophils 52.1 % 03/12/2025 8:17 PM [facility] Lymphocytes 38.2 % 03/12/2025 8:17 PM [facility] Monocytes 6.2 % 03/12/2025 8:17 PM [facility] Eosinophils 2.0 % 03/12/2025 8:17 PM [facility] Basophils 0.6 % 03/12/2025 8:17 PM [facility] Imm Grans 0.9 % 03/12/2025 8:17 PM [facility] NRBC 0.0 <=0.0 /100 WBCs 03/12/2025 8:17 PM [facility] Absolute Neutrophils 4.26 1.92 - 7.60 K/uL 03/12/2025 8:17 PM [facility] Absolute Lymphocytes 3.12 0.72 - 4.10 K/uL 03/12/2025 8:17 PM [facility] Absolute Monocytes 0.51 0.16 - 1.10 K/uL 03/12/2025 8:17 PM [facility] Absolute Eosinophils 0.16 0.00 - 0.50 K/uL 03/12/2025 8:17 PM [facility] Absolute Basophils 0.05 0.00 - 0.15 K/uL 03/12/2025 8:17 PM [facility] Absolute Imm Grans 0.07 0.00 - 0.09 K/uL 03/12/2025 8:17 PM [facility] Absolute NRBC 0.00 <=0.00 K cells/uL 03/12/2025 8:17 PM [facility] Absolute Neutrophils 4.26 1.92 - 7.60 K/uL 03/12/2025 8:17 PM [facility] Comment:Automated cell count . Manual ANC may differ if performed. Diff Type Auto 03/12/2025 8:17 PM [facility] Blood (Blood) Venipuncture / Unknown 03/12/2025 12:07 PM EST 03/12/2025 12:08 PM EST us Jaylin Miller MD LAB BLOOD BKR ORDERABLES Final Result Performing Organization Address City/State/[facility] Co de Phone Number [address] [address] * Erythrocyte Sedimentation Rate (ESR) (03/12/2025 12:07 PM EST) Only the most recent of3 resultswithin the time period is included. ESR 25 0 - 30 mm/h 03/12/2025 8:24 PM [facility] Blood (Blood) Venipuncture / Unknown 03/12/2025 12:07 PM EST 03/12/2025 12:08 PM EST Narrative [facility] - 03/12/2025 8:24 PM EST Specimen was processed >6 hours from time of collection. Results may be falsely decreased. Recommend repeat with fresh sample, particularly for borderline results. us Jaylin Miller MD LAB BLOOD BKR ORDERABLES Final Result [address] [address] * C-Reactive Protein (CRP) (03/12/2025 12:07 PM EST) Only the most recent of3 resultswithin the time period is included. C Reactive Protein <3.0 <10.0 mg/L 03/12/2025 8:33 PM EST [facility] Comment:NOTE: This reference range is for the evaluation of inflammation. Order CRP, High Sensitivity for cardiac risk status evaluation. Blood (Blood) Venipuncture / Unknown 03/12/2025 12:07 PM EST 03/12/2025 12:08 PM EST Jaylin Miller MD LAB BLOOD BKR ORDERABLES Final Result Performing Organization Address [facility] Co de Phone Number [address] [address] * Uric Acid (03/12/2025 12:07 PM EST) Only the most recent of3 resultswithin the time period is included. Pathologist [facility] Uric Acid 4.0 2.4 - 5.7 mg/dL 03/12/2025 8:33 PM EST [facility] Blood (Blood) Venipuncture / Unknown 03/12/2025 12:07 PM EST 03/12/2025 12:08 PM EST Jaylin Miller MD LAB BLOOD BKR ORDERABLES Final Result Performing Organization Address [facility] Co de Phone Number [address] [address] * XR KNEE 4 OR MORE VIEWS (RIGHT) (02/18/2025 3:32 PM EST) Anatomical Region Laterality Modality Knee Right Computed Radiogr aphy 02/19/2025 9:45 AM EST Impressions 02/19/2025 9:54 AM EST No major acute, displaced fracture, dislocation, or joint effusion. There is a small mineralized focus adjacent to the medial femoral condyle, which could relate to prior MCL injury or degenerative enthesopathy. Correlate with trauma history and exam. Osteoarthritis with moderate medial compartment space narrowing. Small superior patellar enthesophyte. Narrative 02/19/2025 9:54 AM EST XR KNEE 4 OR MORE VIEWS (RIGHT) Referring clinician's provided indication for this examination in [facility]: Pain; clicking, s/p inury 3 wks ago COMPARISON: XR KNEE 4 OR MORE VIEWS (BILATERAL) Procedure Note Guanaco Troy MD - 02/19/2025 XR KNEE 4 OR MORE VIEWS (RIGHT) Referring clinician's provided indication for this examination in [facility]:Pain; clicking, s/p inury 3 wks ago COMPARISON: XR KNEE 4 OR MORE VIEWS (BILATERAL) IMPRESSION: No major acute, displaced fracture, dislocation, or joint effusion. Thereis a small mineralized focus adjacent to the medial femoral condyle, whichcould relate to prior MCL injury or degenerative enthesopathy. Correlatewith trauma history and exam. Osteoarthritis with moderate medialcompartment space narrowing. Small superior patellar enthesophyte. Jaylin Miller MD IMG XR LOWER EXTREMITY F inal Result * (ABNORMAL) Urine Culture (02/15/2025 11:12 AM EST) Urine Culture/Test >100,000 CFU/mL Escherichia coli(A) RAPID SUSCEPTIBILITY TESTING (REBECA) 02/17/2025 8:58 AM EST [facility] Urine (Urine, Voided) Non-Blood Collection / Unknown 02/15/2025 11:12 AM EST 02/15/2025 11:12 AM EST Narrative Organism Antibiotic Method Susceptibility Escherichia coli Ampicillin RAPID SUSCEPTIB ILITY TESTING (REBECA) 8: Susceptible Escherichia coli Ampicillin/sulbactam RAPID SUSC EPTIBILITY TESTING (REBECA) 4: Susceptible Escherichia coli Cefazolin(urine) RAPID SUSCEPTI BILITY TESTING (REBECA) 2: Susceptible Escherichia coli Cefepime RAPID SUSCEPTIB ILITY TESTING (REBECA) <=0.12: Susceptible Escherichia coli Ceftazidime RAPID SUSCEPTIB ILITY TESTING (REBECA) <=0.5: Susceptible Escherichia coli Ceftriaxone RAPID SUSCEPTIB ILITY TESTING (REBECA) <=0.25: Susceptible Escherichia coli Ciprofloxacin RAPID SUSCEPTIB ILITY TESTING (REBECA) <=0.06: Susceptible Escherichia coli Extended Spectrum B-lactamase RAPID SUSCEPTIBILITY TESTING (REBECA) Negative Escherichia coli Gentamicin RAPID SUSCEPTIB ILITY TESTING (REBECA) <=1: Susceptible Escherichia coli Levofloxacin RAPID SUSCEPTIB ILITY TESTING (REBECA) <=0.12: Susceptible Escherichia coli Nitrofurantoin RAPID SUSCEPTIB ILITY TESTING (REBECA) <=16: Susceptible Escherichia coli Piperacillin-tazobactam RAPID S USCEPTIBILITY TESTING (REBECA) <=4: Susceptible Escherichia coli Trimethoprim/sulfame tho xazole RAPID SUSCEPTIBILITY TESTING (REBECA) <=20: Susceptible Kit Mcknight MD LAB MICROBIOLOGY CULTURE ORDERA BLES Final Result Performing Organization Address City/[facility]/ZIP Co de Phone Number [address] [address] * (ABNORMAL) Urine Sediment (02/15/2025 11:12 AM EST) WBC 6-9 0 - 9 /hpf 02/15/2025 12:57 PM [facility] RBC 0-2 0 - 2 /hpf 02/15/2025 12:57 PM [facility] Squamous Epithelial Cells 1-2(A) Not Present /hpf 02/15/2025 12:57 PM [facility] Bacteria 2+(A) Negative /hpf 02/15/2025 12:57 PM [facility] Urine (Urine, Voided) Non-Blood Collection / Unknown 02/15/2025 11:12 AM EST 02/15/2025 11:12 AM EST Kit Mcknight MD LAB URINE ORDERABLES Final Resu lt Performing Organization Address City/[facility]/ZIP Co de Phone Number [address] [address] * (ABNORMAL) Urinalysis (02/15/2025 11:12 AM EST) Color Yellow Yellow 02/15/2025 12:53 PM EST [facility] Clarity Clear Clear 02/15/2025 12:53 PM [facility] Glucose Negative Negative 02/15/2025 12:53 PM [facility] Bilirubin Urine Negative Negative 12:53 PM [facility] Ketone Urine Negative Negative 02/15/2025 12:53 PM [facility] Specific [place] 1.020 1.001 - 1.035 02/15/2025 12:53 PM [facility] Blood Negative Negative 02/15/2025 12:53 PM [facility] pH 5.5 5.0 - 8.0 02/15/2025 12:53 PM [facility] Protein Negative Negative 02/15/2025 12:53 PM [facility] Nitrites Positive(A) Negative 02/15/2025 12:53 PM [facility] Leukocyte Esterase Trace(A) Negative 02/15/2025 12:53 PM [facility] Urobilinogen Negative Negative 02/15/2025 12:53 PM [facility] Urine (Urine, Voided) Non-Blood Collection / Unknown 02/15/2025 11:12 AM EST 02/15/2025 11:12 AM EST us Kit Mcknight MD LAB URINE ORDERABLES Final Resu lt Performing Organization Address City/State/[facility] Co de Phone Number [address] [address] * US Kidneys (01/01/2025 6:17 PM EDT) Anatomical Region Laterality Modality Abdomen, Kidney Ultrasound 01/02/2025 9:08 AM EDT Impressions 01/02/2025 9:12 AM EDT No hydronephrosis or perinephric collections are identified. Left renal sinus cyst. Unremarkable assessment of the bladder. Echogenic liver in keeping with steatosis. Narrative 01/02/2025 9:12 AM EDT Procedure: US KIDNEYS 01/01/2025 5:53 PM US Indications: Outside Radiology Order; abnormal results of kidney function. Comparison: Ultrasound abdomen dated October 07, 2022. CT abdomen/pelvis dated July 22, 2022. Ultrasound retroperitoneal dated February 28, 2015. Technique: Serial longitudinal and transverse real-time iqbal scale images through the retroperitoneum and pelvis were acquired utilizing a curved array transducer. Color Doppler images were used to assess vascularity. FINDINGS: Kidneys: The right kidney is normal in shape and position. The cortical thickness is normal and there is normal echogenicity. The right kidney measures 10.7 cm in length. There is no evidence of hydronephrosis, shadowing calcifications, solid/cystic masses or perinephric collections. The left kidney is normal in shape and position. The cortical thickness is normal and there is normal echogenicity. The left kidney measures 10.7 cm in length. There is no evidence of hydronephrosis, shadowing calcifications, perinephric collections or solid masses. There is a sinus cyst identified within the upper renal pole measuring 1.6 x 1.2 x 1.3 cm. Bladder: Examination of the bladder demonstrates normal contours. No intraluminal filling defects are identified. Bilateral ureteric jets were identified at the time of the exam. No urinary bladder volume assessment was performed. Note is made of a mildly echogenic liver in keeping with steatosis. No focal lesions. Procedure Note Nine, Fortino Davila MD - 01/02/2025 Procedure: US KIDNEYS 01/01/2025 5:53 PM US Indications: Outside Radiology Order; abnormal results of kidneyfunction. Comparison: Ultrasound abdomen dated October 07, 2022. CT abdomen/pelvisdated July 22, 2022. Ultrasound retroperitoneal dated February 28, 2015. Technique: Serial longitudinal and transverse real-time iqbal scale imagesthrough the retroperitoneum and pelvis were acquired utilizing a curvedarray transducer. Color Doppler images were used to assess vascularity. FINDINGS: Kidneys: The right kidney is normal in shape and position. The cortical thicknessis normal and there is normal echogenicity. The right kidney [email or web address] cm in length. There is no evidence of hydronephrosis, shadowingcalcifications, solid/cystic masses or perinephric collections. The left kidney is normal in shape and position. The cortical thickness isnormal and there is normal echogenicity. The left kidney measures 10.7 cmin length. There is no evidence of hydronephrosis, shadowingcalcifications, perinephric collections or solid masses. There is asinus cyst identified within the upper renal pole measuring 1.6 x 1.2 x1.3 cm. Bladder: Examination of the bladder demonstrates normal contours. Nointraluminal filling defects are identified. Bilateral ureteric jets were identified at the time of the exam. No urinary bladder volume assessment was performed. Note is made of a mildly echogenic liver in keeping with steatosis. Nofocal lesions. IMPRESSION: No hydronephrosis or perinephric collections are identified. Left renalsinus cyst. Unremarkable assessment of the bladder. Echogenic liver in keeping with steatosis. Matteo Ochoa MD IM US RENAL F inal Result * COLONOSCOPY FOR RESULT ENTRY ONLY (12/05/2024) Pathologist [facility] Colonoscopy External [facility] Provider HEALTH MAINTENANCE Final Result * Hemoglobin A1c (10/19/2024 11:31 AM EDT) Pathologist [facility] HEMOGLOBIN A1C 5.6 4.3 - 5.8 % [facility] Blood 10/19/2024 11:3 1 AM EDT 10/19/2024 11:37 AM EDT Dawna Dominique MD LAB BLOOD BKR ORDERABLE S Final Result [facility] [address] [place] [address] * (ABNORMAL) Lipid panel (10/19/2024 11:31 AM EDT) Pathologist [facility] HDL 56 mg/dL [facility] Comment: Interpretation <40 mg/dL: Low HDL cholesterol (major risk factor for CHD) Greater than or equal to 60 mg/dL: High HDL cholesterol ( negative risk factor for CHD) HDL - cholesterol is affected by a number of factors, e.g. smoking, excerise, hormones, sex and age. CHOLESTEROL 177 0 - 240 mg/dL [facility] TRIGLYCERIDES 233(H) 30 - 160 mg/dL [facility] LDL 74 50 - 129 mg/dL [facility] Comment: LDL levels in terms of risk for coronary heart disease: <100 mg/dL: Optimal 100-129 mg/dL: Near or above optimal 130-159 mg/dL: Borderline high 160-189 mg/dL: High >190 mg/dL: Very High CARDIAC RISK RATIO 3.2(L) 3.3 - 4.4 C [facility] Blood 10/19/2024 11:3 1 AM EDT 10/19/2024 11:36 AM EDT us Dawna Dominique MD LAB BLOOD BKR ORDERABLE S Final Result Performing Organization Address City/[facility]/ZIP Co de Phone Number [address] [address] * Hepatitis C antibody, qualitative (09/17/2022 2:09 PM EDT) HCV NON-REACTIV E NON-REACTI VE [facility] Blood 09/17/2022 2:09 PM EDT 09/17/2022 2:14 PM EDT us Carmen Pearson PA-C LAB BLOOD BKR ORDERABLES Final Result [address] [address] * BD DXA AXIAL (SPINE) WITH HIP [...] Maintenance Insurance MEDICARE PART A & B MEDICARE SUPPLEMENT MEDICARE PART A & B [facility] MEDICARE SUPPLEMENT MEDICARE PART A & B MEDICARE SUPPLEMENT MEDICARE PART A & B [id number] [place] [address] MEDICARE SUPPLEMENT MEDICARE PART A & B [facility] MEDICARE SUPPLEMENT MEDICARE PART A & B Member Subscriber Plan / Payer (Ef fective 1999-Present) Name:Fernanda Barakat Member ID:[id number] Relation to Subscriber:Self Name:[place] Subscriber ID:[id number] Payer ID:[id number] Group ID:Not on file Type:Medicare Address: [employer] [address] MEDICARE SUPPLEMENT MEDICARE PART A & B MEDICARE SUPPLEMENT MEDICARE PART A & [place] [address] [place] [address] MEDICARE SUPPLEMENT MEDICARE PART A & B [facility] MEDICARE SUPPLEMENT Care Teams Network Technical Analyst Relationship Specialty Start Date End Date Dawna Dominique MD [address] [place] [phone] PCP - General Family Medicine 03/16/17 Isaac Medina MD [address] [place] [address] Gastroenterology 01/07/25 Additional Source Comments The information contained in this document represents components of the legal health record. It is not the complete legal health record.[facility]
--- OUTSIDE RECORDS SUMMARY | 2025-03-15 13:19 | XMS_ITS | Encounter Summary ---
Author Organization [facility] Address [address] [place] [phone] Phone Care Team Providers Care Missile And Missile Checkout Technician Name Role Phone Dawna Dominique MD Primary Care Provider Isaac Medina MD Unavailable Encounter Details Date Type Department Care Team (Latest Contact Info) Description 08/26/2023 Transcribe Orders Virtual Department [address] [place] [address] Carmen Pearson PA-C [address] [place] [address] [email or web address] Fatty liver (Primary Dx) Social [...] Description 04/10/2025 11:15 AM EST Office Visit [facility] Gastroenterology Clinic [address] [place] [phone] Unknown, Unknown, Maria C Mills, CABLE MAINTAINER [address] [place] [phone] [email or web address] 04/12/2025 6:00 PM EST Appointment [facility], Bone Density - [address] [address] Lucia Fairchild MD [address] [place] [address], [address] [place] [address] 04/17/2025 1:15 PM EST Office Visit [facility] Orthopedics [facility] Medicine [facility] [address] [place] [address] Enid Wilkerson MD [address] [place] [address] Orthopedics & Sports Medicine, [place] [address] [email or web address] 05/10/2025 11:30 AM EST Office Visit [facility] Neurology Clinic [address] [place] [address] Fide Arteaga PA-C [address] [facility], 3rd [place] [address] 05/15/2025 2:20 PM EST Office Visit [facility] [address] [facility] 3rd Floor, [address] [place] [address] Amrit Jeffries MD [address] [place] [address] 05/20/2025 4:30 PM EST Office Visit [facility] Rheumatology Clinic [address] [place] [address] Jaylin Miller MD [address] [facility], [address] [place] [address] [email or web address] documented as of this encounter Visit Diagnoses Diagnosis Fatty liver- Primary Other chronic nonalcoholic liver disease documented in this encounter Care Teams Missile And Missile Checkout Technician Relationship Specialty Start Date End Date Dawna Dominique MD [address] [place] [phone] PCP - General Family Medicine 03/16/17 Isaac eMdina MD [address] [place] [address] Gastroenterology 01/07/25 documented as of this encounter Additional Source Comments The information contained in this document represents components of the legal health record. It is not the complete legal health record.[facility]
--- OUTSIDE RECORDS SUMMARY | 2025-03-15 13:19 | XMS_ITS | Encounter Summary ---
Author Organization [facility] Address [address] [facility] [address] [place] [address] Phone Care Team Providers Care Curing Room Worker Name Role Phone Dawna Dominique MD Primary Care Provider Isaac Medina MD Unavailable Encounter Details Date Type Department Care Team (Latest Contact Info) Description 08/18/2023 Ancillary Orders [facility] Rheumatology Clinic [address] [place] [address] Jaylin Miller MD [address] [facility], [address] [place] [address] [email or web address] Inflammatory polyarthritis (Primary Dx); Primary osteoarthritis involving [...] Description 04/10/2025 11:15 AM EST Office Visit [facility] Gastroenterology Clinic [address] [place] [address] Unknown, Unknown, Maria C Mills, GEOSPATIAL PROGRAM MANAGEMENT OFFICER [address] [address] [email or web address] 04/12/2025 6:00 PM EST Appointment [facility], Bone Density - [facility] [address] [place] [address] Lucia Fairchild MD [address] [place] [address], [facility] [address] [place] [address] 04/17/2025 1:15 PM EST Office Visit [facility] [address] [place] [address] Enid Wilkerson MD [address] [place] [address] [facility] [place] [address] [email or web address] 05/10/2025 11:30 AM EST Office Visit [facility] Neurology Clinic [address] [place] [address] Fide Arteaga PA-C [address] [facility], 3rd [place] [address] 05/15/2025 2:20 PM EST Office Visit [facility] [address] [facility] 3rd Floor, [address] [place] [address] Amrit Jeffries MD [address] [place] [address] 05/20/2025 4:30 PM EST Office Visit [facility] Rheumatology Clinic [address] [place] [address] Jaylin Miller MD [address] [facility], [address] [place] [address] [email or web address] documented as of this encounter [...] movements documented in this encounter Care Teams Curing Room Worker Relationship Specialty Start Date End Date Dawna Dominique MD [address] [place] [address] PCP - General Family Medicine 03/16/17 Isaac Medina MD [address] [place] [address] [email or web address] Gastroenterology 01/07/25 documented as of this encounter Additional Source Comments The information contained in this document represents components of the legal health record. It is not the complete legal health record.[facility]
--- OUTSIDE RECORDS SUMMARY | 2025-03-15 13:19 | XMS_ITS | Encounter Summary ---
Author Organization [facility] Address [address] [facility] [address] [place] [address] Phone Care Team Providers Care Citizen Participation Specialist Name Role Phone Dawna Dominique MD Primary Care Provider Isaac Medina MD Unavailable Encounter Details Date Type Department Care Team (Late st Contact Info) Description 09/27/2018 Transcribe Orders Virtual Department 30 [place] [address] Lucia Fairchild MD [address] [place] [address] 8 [place] [address] [email or web address] Nontoxic multinodular goiter (Primary Dx) Social History [...] Description 04/10/2025 11:15 AM EST Office Visit [facility] Gastroenterology [facility] 10 [place] [address] Unknown, Unknown, Maria C Mills, AUTOMATIC LATHE TENDER [address] [address] [email or web address] 04/12/2025 6:00 PM EST Appointment [facility], [facility] D[facility] - [facility] 30 [place] [address] Lucia Fairchild MD [address] [place] [address] [address] [place] [address] 04/17/2025 1:15 PM EST Office Visit [facility] [address] [place] [address] Enid Wilkerson MD [address] [place] [address] Orthopedics & Sports Medicine, [place] [address] [email or web address] 05/10/2025 11:30 AM EST Office Visit [facility] Neurology Clinic [address] [place] [address] Fide Arteaga PA-C 22 [facility], 3rd [place] [address] 05/15/2025 2:20 PM EST Office Visit [facility] [address] Floor, [address] [place] [address] Amrit Jeffries MD [address] [place] [address] 05/20/2025 4:30 PM EST Office Visit [facility] Rheumatology Clinic [address] [place] [address] Jaylin Miller MD 22 [facility] 203 [place] [address] [email or web address] documented as of this encounter Visit Diagnoses Diagnosis Nontoxic multinodular goiter- Primary documented in this encounter Care Teams Citizen Participation Specialist Relationship Specialty Start Date End Date Dawna Dominique MD [address] [place] [address] PCP - General Family Medicine 03/16/17 Isaac Medina MD [address] [place] [address] [email or web address] Gastroenterology 01/07/25 documented as of this encounter Additional Source Comments The information contained in this document represents components of the legal health record. It is not the complete legal health record.[facility]
--- OUTSIDE RECORDS SUMMARY | 2025-03-15 13:19 | XMS_ITS | Encounter Summary ---
Author Organization [facility] Address [address] [place] [address] Phone Care Team Providers Care Purler Name Role Phone Dawna Dominique MD Primary Care Provider Isaac Medina MD Unavailable Encounter Details Date Type Department Care Team (Latest Contact Info) Description 12/20/2024 Transcribe Orders Virtual Department [address] [place] [address] Matteo Ochoa MD [address] [address] Abnormal results of kidney function studies (Primary Dx); Abdominal pain, unspecified abdominal location Social History Tobacco Use Types Packs/Day Years [...] Description 04/10/2025 11:15 AM EST Office Visit [facility] Gastroenterology [facility] [address] [place] [address] Unknown, Unknown, Maria C Mills, ASSISTANT BOOKKEEPER [address] [place] [address] [email or web address] 04/12/2025 6:00 PM EST Appointment [facility], Bone Density - [address] [address] Lucia Fairchild MD [address] [place] [address], [address] [place] [address] 04/17/2025 1:15 PM EST Office Visit [facility] [address] [place] [address] Enid Wilkerson MD [address] [place] [address] Orthopedics & Sports Medicine, [place] [address] [email or web address] 05/10/2025 11:30 AM EST Office Visit [facility] Neurology [facility] 22 [place] [address] Fide Arteaga PA-C 22 [facility], 3rd [place] [address] 05/15/2025 2:20 PM EST Office Visit [facility] 22 [facility] 3rd Floor, [address] [place] [address] Amrit Jeffries MD [address] [place] [address] 05/20/2025 4:30 PM EST Office Visit [facility] Rheumatology Clinic 22 [place] [address] Jaylin Miller MD 22 [facility], [address] [place] [address] [email or web address] documented as of this encounter Results * US Kidneys (01/01/2025 6:17 PM EDT) [...] there is normal echogenicity. The right kidney [id number] cm in length. There is no evidence [...] in keeping with steatosis. Matteo Ochoa MD G US RENAL F inal Result documented in this encounter Visit Diagnoses Diagnosis Abnormal results of kidney function studies- Primary Nonspecific abnormal results of kidney function study Abdominal pain, unspecified abdominal location Abnormal results of kidney function studies Nonspecific abnormal results of kidney function study Abdominal pain, unspecified abdominal location documented in this encounter Care Teams Purler Relationship Specialty Start Date End Date Dawna Dominique MD [address] [place] [phone] PCP - General Family Medicine 03/16/17 Isaac Medina MD [address] [place] [address] [email or web address] Gastroenterology 01/07/25 documented as of this encounter Additional Source Comments The information contained in this document represents components of the legal health record. It is not the complete legal health record.[facility]
--- OUTSIDE RECORDS SUMMARY | 2025-03-15 13:19 | XMS_ITS | Encounter Summary ---
Author Organization [facility] Address [address] [place] [address] Phone Care Team Providers Care Central Supply Nurse Name Role Phone Dawna Dominique MD Primary Care Provider Isaac Medina MD Unavailable Reason for Referral * MRI/CAT Scan - Closed Specialty Diagnoses / Procedures Referred By Contac t Referred To Contact Procedures MRI Spine (Bone) Outside (No Interpretation) System, Provider Not In, PhD [facility] [facility] [address] Referral ID Status Reason Start Date Expiration Date Visits Re quested Visits Authorized [id number] Closed 04/18/2017 04/18/2018 1 1 Encounter Details Date Type Department Care Team (Late st Contact Info) Description 04/18/2017 Ancillary Orders [facility],Outside Imaging 30 [place] [address] System, Provider Not In, PhD [facility] [employer] [address] [address] Social History Tobacco Use Types Packs/Day Years [...] Description 04/10/2025 11:15 AM EST Office Visit [facility] Gastroenterology Clinic 10 [place] [address] Unknown, Unknown, Maria C Mills, MATERIALS PLANNER [address] [address] [email or web address] 04/12/2025 6:00 PM EST Appointment [facility], Bone Density - [facility] 30 [place] [address] Lucia Fairchild MD [address] [place] [address] 8 [place] [address] 04/17/2025 1:15 PM EST Office Visit [facility] [address] [place] [address] Enid Wilkerson MD [address] [place] [address] Orthopedics & Sports Medicine, [place] [address] [email or web address] 05/10/2025 11:30 AM EST Office Visit [facility] Neurology Clinic [address] [place] [address] Fide Arteaga PA-C 22 [facility], 3rd [place] [address] 05/15/2025 2:20 PM EST Office Visit [facility] 22 [facility] 3rd [facility], [address] [place] [address] Amrit Jeffries MD [address] [place] [address] 05/20/2025 4:30 PM EST Office Visit [facility] Rheumatology Clinic 22 [place] [address] Jaylin Miller MD 22 [facility], [address] [place] [address] [email or web address] documented as of this encounter Results * [...] on filedocumented in this encounter Care Teams Central Supply Nurse Relationship Specialty Start Date End Date Dawna Dominique MD [address] [place] [address] PCP - General Family Medicine 03/16/17 Isaac Medina MD [address] [place] [address] [email or web address] Gastroenterology 01/07/25 documented as of this encounter Additional Source Comments The information contained in this document represents components of the legal health record. It is not the complete legal health record.[facility]
--- NOTE | 2025-03-15 13:20 | HO.NEPHOV_ITS ---
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 She has improvement in HbA1c. She has been having B/L flank pain without edema, hematuria, fever, nausea or vomiting. Her baseline serum creatinine has been 0.5 which has gone up to 0.7. She denies SOB, PND, orthopnea or edema. She is on Ozempic. She denies taking diuretics, excess NSAID's but is on ACEI. She is going to have ganglion surgery on her hand [facility] Medical History (Updated 03/15/25 @ 13:33 by Matteo Ochoa MD) Elevated creatine kinase level Voice tremor Gastro-esophageal reflux disease without esophagitis Vasomotor rhinitis Headache Obstructive sleep apnea syndrome Simple obesity Nasal congestion Laryngopharyngeal reflux Edema of larynx Disorder of larynx Allergic rhinitis Chronic rhinitis Surgical History History of hysterectomy History of bladder suspension procedure S/P tonsillectomy and adenoidectomy Hx of cholecystectomy History of lumpectomy Social History Alcohol intake: never Patient Tobacco Use Status: Former Tobacco user Review of Systems Const All systems reviewed & are unremarkable except as noted in HPI and below Physical Exam Vital Signs: Last Vital Signs Pulse 101 H 03/15/25 13:21 BP 112/66 03/15/25 13:21 Pulse Ox 97 03/15/25 13:21 Oxygen Delivery Method Room Air 03/15/25 13:21 BMI result Body Mass Index 39.5 Const General: comfortable and no acute distress Orientation/consciousness: patient oriented x3 HEENT Head: Yes normocephalic Mouth: Normal oral and palatal mucosa present Eyes EOM: EOMs intact bilaterally Neck Neck: Yes supple Resp Auscultation: clear to auscultation bilaterally Cardio Jugular venous distension: no JVD Rate: regular rate GI Palpation (GI): Soft to palpation Auscultation: normal bowel sounds General: Yes no CVA tenderness Back/Spine/Pelvis Back: no CVA tenderness Skin General skin exam: no rashes or lesions noted Neuro General: patient oriented x3 and moves all extremities Extrem General: Yes no pedal edema Assessment & Plan Assessment & Plan (1) Hypertension: Code(s): I10 - Essential (primary) hypertension Category: Medical Qualifiers: Hypertension type: primary hypertension Qualified Code(s): I10 - Essential (primary) hypertension Plan Her renal function is good. She is diabetic and is on medications including Ozempic. She is taking ACEI. She should maintain good hydration and avoid NSAID's. I ordered repeat blood work. I did not make any medication changes today. Answered all questions and F/U was given. Orders: Orders 2 Electrolytes 1 Year I10 - Essential (primary) hypertension Creatinine 1 Year I10 - Essential (primary) hypertension Blood Urea Nitrogen 1 Year I10 - Essential (primary) hypertension Protein Creatinine Ratio, Ur 1 Year I10 - Essential (primary) hypertension Coding Level of Care Code Est Pt Level 4 (33932) Diagnoses Primary hypertension I10 Hypertension type: primary hypertension
[2025-03-15 13:21] VITALS: BP 112/66; PULSE 101; O2SAT 97; BMI 39.5
== END 2025-03-15 15:35 | disposition home or self-care (01) ==
LOC: HO.HKA 13:15
PROVIDERS: PCP Family Medicine; Visit Provider Internal Medicine Nephrology
DX: I10 Essential (primary) hypertension (principal)
CPT/HCPCS: 99214

== ENCOUNTER → 2025-03-15 13:15 | Outpatient (BNVA) | payer MEDICARE, SELFPAY | PROVIDERS: PCP Family Medicine; Visit Provider Internal Medicine Nephrology | DX: I10 Essential (primary) hypertension (principal); E11.9 Type 2 diabetes mellitus without complications; Z79.85 Long-term (current) use of injectable non-insulin antidiabetic drugs; Z79.899 Other long term (current) drug therapy; Z87.891 Personal history of nicotine dependence | CPT/HCPCS: 99212 ==